=== PATIENT | male | born 1945 | race Two or more races ===

== ENCOUNTER 2017-02-07 08:15 | Inpatient (IN) | payer OTHER, MEDICARE ==
[2017-02-07] MEDS ORDERED: ASPIRIN 81 MG TABLET, CHEWABLE PO ONE (08:51)
[2017-02-07] MEDS ORDERED: DILTIAZEM HCL INJ 25 MG/5 ML VIAL IV ONE ×2 (08:51→08:53)
[2017-02-07] MEDS ORDERED: NORMAL SALINE 1000 ML 500 ML IV ONE (08:53)
--- NOTE | 2017-02-07 08:57 | ER Document Report ---
ED General - General Chief Complaint: Breathing Difficulty Stated Complaint: DIFFICULTY BREATHING Mode of Arrival: Ambulatory Information source: Patient Notes: This is a 71-year-old male with a history of hypertension and diabetes who presents with shortness of breath. He states that about 6 PM last night he was having a family discussion about a family problem and had some anxiety. At that time he noticed that he had some substernal chest discomfort and shortness of breath. He went to bed at about 7 PM but had difficulty sleeping secondary to his symptoms. This morning upon awakening he noticed that he was still short of breath and did not feel well. He denies any current chest pain. He has no prior cardiac history and no prior history of A. fib. TRAVEL OUTSIDE OF THE [place] IN LAST 30 DAYS: No - Related Data Allergies/Adverse Reactions: No Known Allergies Allergy (Verified 02/07/17 08:20) Past Medical History - General Information source: Patient - Social History Smoking Status: Former Smoker - quit 13 years ago Chew tobacco use (# tins/day): No Frequency of alcohol use: Occasional Drug Abuse: None Family History: Reviewed & Not Pertinent Patient has suicidal ideation: No Patient has homicidal ideation: No - Past Medical History Cardiac Medical History: Reports: Hx Hypertension Denies: Hx Coronary Artery Disease, Hx Heart Attack Pulmonary Medical History: Denies: Hx Asthma, Hx Bronchitis, Hx COPD, Hx Pneumonia Neurological Medical History: Denies: Hx Cerebrovascular Accident, Hx Seizures Endocrine Medical History: Reports: Hx Diabetes Mellitus Type 2 Renal/ Medical History: Denies: Hx Peritoneal Dialysis Musculoskeltal Medical History: Denies Hx Arthritis Other: Vasectomy, left neck lymph node - Immunizations Hx Diphtheria, Pertussis, Tetanus Vaccination: Yes Review of Systems - Review of Systems Notes: REVIEW OF SYSTEMS: CONSTITUTIONAL : Denies fever, chills, or sweats. Denies recent illness. EENT: Denies eye, ear, throat, or mouth pain or symptoms. Denies nasal or sinus congestion. CARDIOVASCULAR: As per history of present illness RESPIRATORY: Denies cough, cold, or chest congestion. Dyspnea as per history of present illness GASTROINTESTINAL: Denies abdominal pain. Denies nausea, vomiting, or diarrhea. GENITOURINARY: Denies difficulty urinating, painful urination, burning, frequency, or blood in urine. MUSCULOSKELETAL: Denies neck or back pain or joint pain or swelling. SKIN: Denies rash or skin lesions. HEMATOLOGIC : Denies easy bruising or bleeding. LYMPHATIC: Denies swollen, enlarged glands. NEUROLOGICAL: Denies altered mental status or loss of consciousness. Denies headache. PSYCHIATRIC: Denies anxiety or stress or depression. ALL OTHER SYSTEMS REVIEWED AND NEGATIVE. Physical Exam - Vital signs Vitals: Temp Pulse Resp BP Pulse Ox 97.6 F 56 L 20 150/59 H 96 02/07/17 08:21 02/07/17 08:21 02/07/17 08:21 02/07/17 08:21 02/07/17 08:21 - Notes Notes: PHYSICAL EXAMINATION: GENERAL: Well-appearing, well-nourished and in no acute distress. Very pleasant and conversant. No conversational dyspnea. HEAD: Atraumatic, normocephalic. EYES: Pupils equal round and reactive to light, extraocular movements intact, sclera anicteric, conjunctiva are normal. ENT: nares patent, oropharynx clear without exudates. Moist mucous membranes. NECK: Normal range of motion, supple without lymphadenopathy LUNGS: Breath sounds clear to auscultation bilaterally and equal. No wheezes rales or rhonchi. HEART: Irregularly irregular rhythm, tachycardic, no murmurs appreciated. ABDOMEN: Soft, nontender, normoactive bowel sounds. No guarding, no rebound. No masses appreciated. EXTREMITIES: Normal range of motion, no pitting or edema. NEUROLOGICAL: Cranial nerves grossly intact. Normal speech. No gross focal motor or sensory deficits appreciated. PSYCH: Normal mood, normal affect. SKIN: Warm, Dry, normal turgor, no rashes or lesions noted. Course - Re-evaluation Re-evalutation: 02/07/17 09:51 Patient rate controlled after 1 dose of IV diltiazem. His rate is noted to be in the 80s and 90s with continued A. fib. Chest x-ray demonstrates a possible retrocardiac infiltrate. IV antibiotics have been ordered and patient will be admitted to the IMCU. Discussed with for Dr. Bledsoe. - Vital Signs Vital signs: Temp Pulse Resp BP Pulse Ox 97.5 F 119 H 18 96/60 L 100 02/07/17 14:03 02/07/17 14:03 02/07/17 14:03 02/07/17 14:03 02/07/17 12:30 - Laboratory Result Diagrams: 02/07/17 09:00 02/07/17 09:00 Laboratory results interpreted by me: 02/07/17 02/07/17 09:00 09:00 RBC 5.60 H RDW 14.5 H Sodium 145.1 H Chloride 108 H Glucose 139 H - Diagnostic Test Radiology reviewed: Reports reviewed - Chest x-ray with retrocardiac infiltrate. - EKG Interpretation by Me Additional EKG results interpreted by me: 02/07/17 09:54 EKG at 827 demonstrates atrial fibrillation with a rate of 163. There is no ST segment elevation or depression. Critical Care Note - Critical Care Note Total time excluding time spent on procedures (mins): 35 - minutes of critical care time spent in direct contact evaluating and reevaluating the patient, treating symptoms, reviewing labs and studies and speaking with family and consultants excluding any procedures Discharge - Discharge Clinical Impression: New onset atrial fibrillation Pneumonia Qualifiers: Pneumonia type: due to unspecified organism Laterality: left Lung location: lower lobe of lung Qualified Code(s): J18.1 - Lobar pneumonia, unspecified organism Disposition: ADMITTED INPATIENT Admitting Provider: [facility] Admitted: [facility]
[2017-02-07 09:14] LABS: ABSOLUTE BASOPHILS # (AUTO) 0.1 10^3/uL (0.0-0.2); ABSOLUTE EOSINOPHILS # (AUTO) 0.3 10^3/uL (0.0-0.6); ABSOLUTE LYMPHOCYTES (AUTO) 1.3 10^3/uL (0.5-4.7); ABSOLUTE MONOCYTES (AUTO) 0.7 10^3/uL (0.1-1.4); ABSOLUTE NEUT (AUTO) 7.1 10^3/uL (1.7-8.2); BASOPHILS % (AUTO) 0.7 % (0-2); EOSINOPHILS % (AUTO) 2.7 % (0-6); HEMATOCRIT 46.7 % (37.9-51.0); HEMOGLOBIN 15.4 g/dL (13.5-17.0); HGB HCT DIFFERENCE -0.5; LYMPHOCYTES % (AUTO) 14.2 % (13-45); MEAN CORPUSCULAR HEMOGLOBIN 27.6 pg (27.0-33.4); MEAN CORPUSCULAR HGB CONC 33.1 g/dL (32.0-36.0); MEAN CORPUSCULAR VOLUME 83 fl (80-97); MONOCYTES % (AUTO) 7.4 % (3-13); RED CELL DISTRIBUTION WIDTH 14.5 % (11.5-14.0); WHITE BLOOD COUNT 9.5 10^3/uL (4.0-10.5)
[2017-02-07 09:32] LABS: ALANINE AMINOTRANSFERASE 32 U/L (21-72); ALBUMIN 4.2 g/dL (3.5-5.0); ALKALINE PHOSPHATASE 79 U/L (38-126); ANION GAP 15 (5-19); ASPARTATE AMINO TRANSFERASE 28 U/L (17-59); BILIRUBIN,TOTAL 0.5 mg/dL (0.2-1.3); BLOOD UREA NITROGEN 20 mg/dL (7-20); CALCIUM 9.5 mg/dL (8.4-10.2); CARBON DIOXIDE 22 mmol/L (22-30); CHLORIDE 108 mmol/L (98-107); CREATINE KINASE 73 U/L (55-170); CREATININE RESULT 0.85 mg/dL (0.52-1.25); GLUCOSE 139 mg/dL (75-110); POTASSIUM 4.4 mmol/L (3.6-5.0); SODIUM 145.1 mmol/L (137-145); TOTAL PROTEIN 7.3 g/dL (6.3-8.2)
[2017-02-07 09:44] LABS: CREATINE KINASE MB 0.77 ng/mL (<4.55)
[2017-02-07 09:47] LABS: TROPONIN I < 0.012 ng/mL
[2017-02-07 09:48] LABS: PARTIAL THROMBOPLASTIN TIME 27.7 SEC (23.5-35.8)
[2017-02-07] MEDS ORDERED: CEFTRIAXONE 1 GM/D5W RTU 50 ML IV ONE (09:48)
[2017-02-07] MEDS ORDERED: AZITHROMYCIN INJ 500 MG VIAL IV ONE (09:49)
[2017-02-07] MEDS ORDERED: LEVOFLOXACIN 750 MG/D5W RTU 750 MG/150 ML RTUPB IV SCH (12:00)
--- NOTE | 2017-02-07 12:11 | EKG REPORT ---
SEVERITY:- ABNORMAL ECG - ATRIAL FIBRILLATION, V-RATE 67-118 BORDERLINE LEFT AXIS DEVIATION LOW VOLTAGE IN FRONTAL LEADS : Confirmed by: Paula Barber MD 07-Feb-2017 12:10:16
--- NOTE | 2017-02-07 12:11 | EKG REPORT ---
SEVERITY:- ABNORMAL ECG - ATRIAL FIBRILLATION WITH RAPID V-RATE BORDERLINE LEFT AXIS DEVIATION LOW VOLTAGE IN FRONTAL LEADS : Confirmed by: Paula Barber MD 07-Feb-2017 12:10:26
[2017-02-07] MEDS ORDERED: ENOXAPARIN SODIUM INJ 40 MG/0.4 ML DISP.SYRIN SUBCUT ONE (13:00)
[2017-02-07 13:37] LABS: PARTIAL THROMBOPLASTIN TIME 29.4 SEC (23.5-35.8); PROTHROMBIN TIME 12.4 SEC (11.4-15.4)
[2017-02-07 13:47] LABS: LIPASE 357.1 U/L (23-300); PHOSPHORUS 3.7 mg/dL (2.5-4.5)
[2017-02-07 14:18] LABS: CREATINE KINASE MB 0.68 ng/mL (<4.55)
[2017-02-07 14:25] LABS: TROPONIN I < 0.012 ng/mL
[2017-02-07] MEDS ORDERED: AMIODARONE HCL 150 MG in DEXTROSE 5%-WATER 100 ML IV ONE (15:00)
--- NOTE | 2017-02-07 15:34 | PDOC H&P ---
History of Present Illness Admission Date/PCP: 02/07/17 11:51 DOROTHY AKINS History of Present Illness: JAYJAY HOWELL is a 71 year old male, patient of Dr. Akins, he came to the emergency room this morning because of shortness of breath and chest pain, he stated that yesterday he had argument with his spouse and he felt anxious last night and this morning he noticed increased shortness of breath and substernal chest pain ,so he came to the emergency room for evaluation of his symptoms. In the emergency room he was evaluated he was found to be in atrial fibrillation with rapid ventricular response the heart rate was 163, he does not have a history of atrial fibrillation. In The emergency room he was given a dose of Cardizem and subsequently the blood pressure was low and also control the ventricular rate .when he arrived in the emergency room the blood pressure recorded was 150/59.The initial chest x-ray that was done in the emergency room showed patchy densities in the left retrocardiac area which could represent infiltrate or atelectasis because of these findings on chest x-ray I requested for CT chest without contrast because patient has no symptoms of pneumonia. The CT scan of the chest without contrast showed no masses no infiltrate no pneumothorax no pleural effusions, there are ill-defined groundglass densities in the lung bases which may represent atelectasis or developing infiltrates. There was also incidental finding of a large cyst in the right lobe of the thyroid gland that measures 1.8 x 2.9 cm in diameter. When patient arrived on the floor he was in atrial fibrillation with rapid irregular response but the blood pressure was on the low side 90 systolic. Past Medical History Cardiac Medical History: Reports: Hypertension Endocrine Medical History: Reports: Diabetes Mellitus Type 2 Social History Smoking Status: Former Smoker Number of Years Smokin Frequency of Alcohol Use: None Hx Recreational Drug Use: No Drugs: None Hx Prescription Drug Abuse: No - Advance Directive Resuscitation Status: Full Code Family History Parental Family History Reviewed: Yes Children Family History Reviewed: Yes Sibling(s) Family History Reviewed.: Yes Medication/Allergy Home Medications: Atorvastatin Calcium [Lipitor] 20 mg PO DAILY 12/28/14 Doxazosin Mesylate [Cardura] 1 mg PO DAILY 12/28/14 Glipizide/Metformin HCl [Glipizide-Metformin 5-500 Mg] 1 each PO BID 12/28/14 Levocetirizine Dihydrochloride [Xyzal 5 mg Tablet] 5 mg PO QHS 12/28/14 Linagliptin [Tradjenta] 5 mg PO DAILY 12/28/14 Lisinopril 5 mg PO DAILY 12/28/14 Sildenafil Citrate [Viagra] 100 mg PO PRN PRN 12/28/14 Allergies/Adverse Reactions: No Known Allergies Allergy (Verified 02/07/17 08:20) Review of Systems Constitutional: ABSENT: chills, fever(s), headache(s), weight gain, weight loss Eyes: ABSENT: visual disturbances Ears: ABSENT: hearing changes Cardiovascular: PRESENT: chest pain, dyspnea on exertion Respiratory: ABSENT: cough, hemoptysis Gastrointestinal: ABSENT: abdominal pain, constipation, diarrhea, hematemesis, hematochezia, nausea, vomiting Genitourinary: ABSENT: dysuria, hematuria Musculoskeletal: ABSENT: joint swelling Integumentary: ABSENT: rash, wounds Neurological: ABSENT: abnormal gait, abnormal speech, confusion, dizziness, focal weakness, syncope Psychiatric: ABSENT: anxiety, depression, homidical ideation, suicidal ideation Endocrine: ABSENT: cold intolerance, heat intolerance, menstrual abnormalities, polydipsia, polyuria Hematologic/Lymphatic: ABSENT: easy bleeding, easy bruising, lymphadenopathy Physical Exam Vital Signs: Temp Pulse Resp BP Pulse Ox 97.5 F 119 H 18 96/60 L 100 02/07/17 14:03 02/07/17 14:03 02/07/17 14:03 02/07/17 14:03 02/07/17 12:30 Intake & Output 02/06/17 02/07/17 02/08/17 06:59 06:59 06:59 Weight 97.692 kg General appearance: PRESENT: no acute distress, well-developed, well-nourished Head exam: PRESENT: atraumatic, normocephalic Eye exam: PRESENT: conjunctiva pink, EOMI, PERRLA Ear exam: PRESENT: normal external ear exam Mouth exam: PRESENT: moist, tongue midline Neck exam: PRESENT: full ROM Respiratory exam: PRESENT: clear to auscultation freda Cardiovascular exam: PRESENT: RRR, +S1, +S2, tachycardia Pulses: PRESENT: normal dorsalis pedis pul, +2 pedal pulses bilateral Vascular exam: PRESENT: normal capillary refill GI/Abdominal exam: PRESENT: normal bowel sounds, soft Rectal exam: PRESENT: deferred Neurological exam: PRESENT: alert, awake, oriented to person, oriented to place , oriented to time, oriented to situation, CN II-XII grossly intact Psychiatric exam: PRESENT: appropriate affect, normal mood Skin exam: PRESENT: dry, intact, warm Results Laboratory Results: 02/07/17 02/07/17 02/07/17 12:49 12:49 12:49 Phosphorus 3.7 Ammonia < 8.7 L Amylase 90 Lipase 357.1 H TSH 0.84 02/07/17 02/07/17 02/07/17 12:49 12:49 12:49 Creatine Kinase 58 CK-MB (CK-2) 0.68 Troponin I < 0.012 Cancelled NT-Pro-B Natriuret Pep 1970 H Impressions: Chest CT 02/07/17 00:00 IMPRESSION: Ill-defined ground-glass densities in the lung bases which could represent atelectatic changes or developing infiltrates. No pleural effusions are identified. Other findings as noted above Chest X-Ray 02/07/17 08:22 IMPRESSION: Left retrocardiac densities which could represent atelectatic changes or minimal infiltrate. Other findings as noted above Assessment & Plan - Diagnosis (1) Atrial fibrillation with rapid ventricular response Is this a current diagnosis for this admission?: YesPlan: He has no onset atrial fibrillation with rapid ventricular response, patient to be treated with amiodarone infusion because blood pressure is low he cannot tolerate Cardizem infusion, he may need chronic anticoagulation because his chads S2 score is relatively high, he has a history of hypertension diabetes mellitus. 2D echo will be ordered to assess left atrial size and LV function (2) Type 2 diabetes mellitus Qualifiers: Diabetes mellitus complication status: without complication Diabetes mellitus care home insulin use: without terminal operations manager use Qualified Code(s): E11.9 - Type 2 diabetes mellitus without complications Is this a current diagnosis for this admission?: Yes (3) Hypertension Qualifiers: Hypertension type: essential hypertension Qualified Code(s): I10 - Essential (primary) hypertension Is this a current diagnosis for this admission?: Yes
[2017-02-07] MEDS: DEXTROSE 5%-WATER 500 ML with AMIODARONE HCL 900 MG IV PRN ×2 (15:51)
[2017-02-07 17:29] LABS: URINE BARBITURATES SCREEN NEGATIVE; URINE METHADONE SCREEN NEGATIVE; URINE OPIATES LOW NEGATIVE; URINE PHENCYCLIDINE SCREEN NEGATIVE
[2017-02-08 06:11] LABS: ALANINE AMINOTRANSFERASE 33 U/L (21-72); ALBUMIN 3.6 g/dL (3.5-5.0); ALKALINE PHOSPHATASE 64 U/L (38-126); ANION GAP 11 (5-19); ASPARTATE AMINO TRANSFERASE 20 U/L (17-59); BILIRUBIN,TOTAL 0.6 mg/dL (0.2-1.3); BLOOD UREA NITROGEN 19 mg/dL (7-20); CALCIUM 9.2 mg/dL (8.4-10.2); CARBON DIOXIDE 24 mmol/L (22-30); CHLORIDE 105 mmol/L (98-107); CHOLESTEROL 132.21 mg/dL (0-200); CREATININE RESULT 0.82 mg/dL (0.52-1.25); Direct HDL 32 mg/dL (>40); GLUCOSE 135 mg/dL (75-110); POTASSIUM 4.5 mmol/L (3.6-5.0); SODIUM 139.8 mmol/L (137-145); TOTAL PROTEIN 6.3 g/dL (6.3-8.2); TRIGLYCERIDES 108 mg/dL (<150)
[2017-02-08 06:14] LABS: ABSOLUTE BASOPHILS # (AUTO) 0.1 10^3/uL (0.0-0.2); ABSOLUTE EOSINOPHILS # (AUTO) 0.3 10^3/uL (0.0-0.6); ABSOLUTE LYMPHOCYTES (AUTO) 1.8 10^3/uL (0.5-4.7); ABSOLUTE MONOCYTES (AUTO) 0.9 10^3/uL (0.1-1.4); ABSOLUTE NEUT (AUTO) 7.1 10^3/uL (1.7-8.2); BASOPHILS % (AUTO) 0.8 % (0-2); EOSINOPHILS % (AUTO) 3.4 % (0-6); HEMATOCRIT 44.4 % (37.9-51.0); HEMOGLOBIN 14.9 g/dL (13.5-17.0); HGB HCT DIFFERENCE 0.3; MEAN CORPUSCULAR HEMOGLOBIN 27.6 pg (27.0-33.4); MEAN CORPUSCULAR HGB CONC 33.5 g/dL (32.0-36.0); MEAN CORPUSCULAR VOLUME 82 fl (80-97); MONOCYTES % (AUTO) 8.5 % (3-13); RED BLOOD COUNT 5.39 10^6/uL (4.35-5.55); RED CELL DISTRIBUTION WIDTH 14.7 % (11.5-14.0); SEGMENTED NEUTROPHILS % (AUTO) 69.3 % (42-78); WHITE BLOOD COUNT 10.2 10^3/uL (4.0-10.5)
[2017-02-08 06:22] LABS: DIRECT LDL 77 mg/dL (<100)
[2017-02-08] MEDS: ENOXAPARIN SODIUM INJ 40 MG/0.4 ML DISP.SYRIN SUBCUT SCH (07:18)
[2017-02-08] MEDS: METFORMIN HCL 500 MG TABLET PO SCH ×2 (09:37→17:48)
[2017-02-08] MEDS: TAMSULOSIN HCL 0.4 MG CAP.SR.24H PO SCH (09:38)
[2017-02-08] MEDS: PIOGLITAZONE HCL 15 MG TABLET PO SCH (09:39)
[2017-02-08] MEDS: LISINOPRIL 10 MG TABLET PO SCH (09:39)
[2017-02-08] MEDS: ATORVASTATIN CALCIUM 20 MG TABLET PO SCH (09:39)
[2017-02-08] MEDS: DUTASTERIDE 0.5 MG CAPSULE PO SCH (09:39)
[2017-02-08] MEDS: ASPIRIN 81 MG TABLET, ENT COATED PO SCH (09:39)
[2017-02-08] MEDS: DEXTROSE 5%-WATER 500 ML with AMIODARONE HCL 900 MG IV PRN ×2 (09:40)
[2017-02-08] MEDS ORDERED: TAMSULOSIN HCL PO SCH (10:00)
[2017-02-08] MEDS ORDERED: EMPAGLIFLOZIN PO SCH (10:00)
[2017-02-08] MEDS ORDERED: DUTASTERIDE PO SCH (10:00)
[2017-02-08] MEDS ORDERED: LINAGLIPTIN PO SCH (10:00)
[2017-02-08] MEDS ORDERED: METOPROLOL TARTRATE 25 MG TABLET PO ONE (15:00)
--- NOTE | 2017-02-08 15:28 | XCELERA REPORT ---
[address] [address] Transthoracic Echocardiogram Report Name: JAYJAY HOWELL Age: 71 yrs Gender: Male : 1945 Patient Status: Inpatient Patient Location: [id number]\S\329\S\A Study Date: 02/08/2017 09:51 AM Height: 73 in Weight: 216 lb BSA: 2.2 m2 Procedure: A complete two-dimensional transthoracic echocardiogram was performed (2D, M-mode, spectral and color flow Doppler). The study was technically difficult with many images being suboptimal in quality. Reason For Study: new onset a-fib Ordering Physician: NICHOLAS LAZCANO Performed By: Karma Mitchell Interpretation Summary The left ventricular ejection fraction is normal. Doppler measurements suggest pseudonormalized left ventricular relaxation, which is associated with grade II/IV or mild to moderate diastolic dysfunction There is mild concentric left ventricular hypertrophy. The left ventricle is grossly normal size. Wall motion cannot be accurately commented on, but no definite regional wall motion abnormalities noted. The right ventricle is mildly dilated. The right ventricular systolic function is normal. The left atrium is moderately dilated. The right atrium is mildly dilated. There is a trace amount of mitral regurgitation There is no mitral valve stenosis. No aortic regurgitation is present. There is no aortic valve stenosis There is a trace or physiologic amount of tricuspid regurgitation Tricuspid regurgitation jet envelope not well defined to measure RV systolic pressure accurately. The aortic root is not well visualized but is probably normal size. The inferior vena cava was not well visualized There is no pericardial effusion. MMode/2D Measurements \T\ Calculations RVDd: 3.2 cm LVIDd: 4.2 cm FS: 32.5 % Ao root diam: 3.5 cm IVSd: 1.2 cm LVIDs: 2.9 cm EDV(Teich): 80.1 ml LVPWd: 1.2 cm ESV(Teich): 31.1 ml Ao root area: 9.8 cm2 EF(Teich): 61.2 % LA dimension: 4.5 cm LVOT diam: 2.1 cm LVOT area: 3.6 cm2 Doppler Measurements \T\ Calculations MV E max alicia: MV P1/2t max alicia: Ao V2 max: LV V1 max P.1 cm/sec 109.1 cm/sec 120.2 cm/sec 3.8 mmHg MV P1/2t: 53.8 msec Ao max PG: LV V1 max: MVA(P1/2t): 4.1 cm2 5.8 mmHg 97.9 cm/sec MV dec slope: FERMIN(V,D): 2.9 cm2 593.6 cm/sec2 PA V2 max: TR max alicia: 68.3 cm/sec 169.4 cm/sec PA max P.9 mmHgTR max P.5 mmHg Left Ventricle The left ventricle is grossly normal size. There is mild concentric left ventricular hypertrophy. The left ventricular ejection fraction is normal. Doppler measurements suggest pseudonormalized left ventricular relaxation, which is associated with grade II/IV or mild to moderate diastolic dysfunction. Wall motion cannot be accurately commented on, but no definite regional wall motion abnormalities noted. Right Ventricle The right ventricle is mildly dilated. There is normal right ventricular wall thickness. The right ventricular systolic function is normal. Atria The right atrium is mildly dilated. The left atrium is moderately dilated. Interarterial septum not well visualized and not well dopplered. Cannot comment on ASD/PFO presence. Mitral Valve The mitral valve leaflets are sclerotic, but show no functional abnormalities. There is no mitral valve stenosis. There is a trace amount of mitral regurgitation. Aortic Valve The aortic valve is grossly normal. There is no aortic valve stenosis. No aortic regurgitation is present. Tricuspid Valve The tricuspid valve is not well visualized, but is grossly normal. There is no tricuspid stenosis. There is a trace or physiologic amount of tricuspid regurgitation. Tricuspid regurgitation jet envelope not well defined to measure RV systolic pressure accurately. Pulmonic Valve The pulmonic valve is not well visualized. Great Vessels The aortic root is not well visualized but is probably normal size. The inferior vena cava was not well visualized. Effusions There is no pericardial effusion. : NICHOLAS LAZCANO > Angela Laurent
[2017-02-08] MEDS: METOPROLOL TARTRATE 25 MG TABLET PO SCH (21:07)
--- NOTE | 2017-02-08 23:20 | PDOC PROGRESS REPORT ---
Subjective Progress Note for:: 02/08/17 Subjective:: No chest pain or difficulty with breathing. Patient did convert to sinus rhythm earlier today. He did suggest alcohol consumption at home during my bedside consultation today. He denied prior history of atrial fibrillation. No fever or chills. Physical Exam Vital Signs: Temp Pulse Resp BP Pulse Ox 98.7 F 73 16 119/59 L 93 02/08/17 20:28 02/08/17 19:00 02/08/17 20:28 02/08/17 19:32 02/08/17 20:28 Intake & Output 02/07/17 02/08/17 02/09/17 06:59 06:59 06:59 Intake Total 1011 1024 Balance 1011 1024 Weight 98.5 kg General appearance: PRESENT: no acute distress, cooperative Head exam: PRESENT: atraumatic, normocephalic Eye exam: PRESENT: conjunctiva pink, EOMI, PERRLA. ABSENT: scleral icterus Mouth exam: PRESENT: moist Respiratory exam: PRESENT: clear to auscultation freda Cardiovascular exam: PRESENT: RRR. ABSENT: diastolic murmur, rubs, systolic murmur GI/Abdominal exam: PRESENT: normal bowel sounds, soft. ABSENT: distended, guarding, mass, organolmegaly, rebound, tenderness Extremities exam: PRESENT: full ROM Musculoskeletal exam: PRESENT: ambulatory, deformity Neurological exam: PRESENT: alert, awake, oriented to person, oriented to place , oriented to time, oriented to situation, CN II-XII grossly intact. ABSENT: motor sensory deficit Psychiatric exam: PRESENT: appropriate affect, normal mood. ABSENT: homicidal ideation, suicidal ideation Skin exam: PRESENT: dry, intact, warm. ABSENT: cyanosis, rash Results Laboratory Results: 02/08/17 05:46 02/08/17 05:46 02/08/17 02/08/17 05:46 05:46 WBC 10.2 RBC 5.39 Hgb 14.9 Hct 44.4 MCV 82 MCH 27.6 MCHC 33.5 RDW 14.7 H Plt Count 247 Seg Neutrophils % 69.3 Lymphocytes % 18.0 Monocytes % 8.5 Eosinophils % 3.4 Basophils % 0.8 Absolute Neutrophils 7.1 Absolute Lymphocytes 1.8 Absolute Monocytes 0.9 Absolute Eosinophils 0.3 Absolute Basophils 0.1 Sodium 139.8 Potassium 4.5 Chloride 105 Carbon Dioxide 24 Anion Gap 11 BUN 19 Creatinine 0.82 Est GFR ( Amer) > 60 Est GFR (Non-Af Amer) > 60 Glucose 135 H Calcium 9.2 Total Bilirubin 0.6 AST 20 ALT 33 Alkaline Phosphatase 64 Total Protein 6.3 Albumin 3.6 Triglycerides 108 Cholesterol 132.21 LDL Cholesterol Direct 77 VLDL Cholesterol 22.0 HDL Cholesterol 32 L 02/07/17 02/07/17 02/07/17 12:49 12:49 12:49 Creatine Kinase 58 CK-MB (CK-2) 0.68 Troponin I < 0.012 Cancelled NT-Pro-B Natriuret Pep 1970 H 02/07/17 02/08/17 18:25 00:30 Creatine Kinase CK-MB (CK-2) Troponin I < 0.012 < 0.012 NT-Pro-B Natriuret Pep Impressions: Chest CT 02/07/17 00:00 IMPRESSION: Ill-defined ground-glass densities in the lung bases which could represent atelectatic changes or developing infiltrates. No pleural effusions are identified. Other findings as noted above Chest X-Ray 02/07/17 08:22 IMPRESSION: Left retrocardiac densities which could represent atelectatic changes or minimal infiltrate. Other findings as noted above Assessment & Plan - Diagnosis (1) Atrial fibrillation with rapid ventricular response Is this a current diagnosis for this admission?: YesPlan: See attending physician orders. (2) Hypertension Qualifiers: Hypertension type: essential hypertension Qualified Code(s): I10 - Essential (primary) hypertension Is this a current diagnosis for this admission?: YesPlan: See attending physician orders. (3) Pneumonia Qualifiers: Pneumonia type: due to unspecified organism Laterality: left Lung location: lower lobe of lung Qualified Code(s): J18.1 - Lobar pneumonia, unspecified organism Is this a current diagnosis for this admission?: YesPlan: See attending physician orders. (4) Type 2 diabetes mellitus Qualifiers: Diabetes mellitus complication status: with unspecified complications Diabetes mellitus snf insulin use: without snf use Qualified Code(s): E11.8 - Type 2 diabetes mellitus with unspecified complications Is this a current diagnosis for this admission?: YesPlan: See attending physician orders. 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
[2017-02-09] MEDS ORDERED: LEVOFLOXACIN 500 MG/D5W RTU 500 MG/100 ML RTUPB IV ONE (01:00)
[2017-02-09 05:48] LABS: ABSOLUTE BASOPHILS # (AUTO) 0.1 10^3/uL (0.0-0.2); ABSOLUTE EOSINOPHILS # (AUTO) 0.3 10^3/uL (0.0-0.6); ABSOLUTE LYMPHOCYTES (AUTO) 1.7 10^3/uL (0.5-4.7); ABSOLUTE MONOCYTES (AUTO) 0.8 10^3/uL (0.1-1.4); ABSOLUTE NEUT (AUTO) 5.4 10^3/uL (1.7-8.2); BASOPHILS % (AUTO) 1.1 % (0-2); EOSINOPHILS % (AUTO) 3.6 % (0-6); HEMATOCRIT 42.8 % (37.9-51.0); HEMOGLOBIN 14.4 g/dL (13.5-17.0); HGB HCT DIFFERENCE 0.4; MEAN CORPUSCULAR HEMOGLOBIN 27.8 pg (27.0-33.4); MEAN CORPUSCULAR HGB CONC 33.7 g/dL (32.0-36.0); MEAN CORPUSCULAR VOLUME 83 fl (80-97); MONOCYTES % (AUTO) 9.2 % (3-13); RED BLOOD COUNT 5.19 10^6/uL (4.35-5.55); RED CELL DISTRIBUTION WIDTH 14.3 % (11.5-14.0); SEGMENTED NEUTROPHILS % (AUTO) 65.1 % (42-78); WHITE BLOOD COUNT 8.3 10^3/uL (4.0-10.5)
[2017-02-09 06:10] LABS: ALANINE AMINOTRANSFERASE 30 U/L (21-72); ALBUMIN 3.5 g/dL (3.5-5.0); ALKALINE PHOSPHATASE 71 U/L (38-126); ANION GAP 12 (5-19); ASPARTATE AMINO TRANSFERASE 21 U/L (17-59); BILIRUBIN,DIRECT 0.1 mg/dL (0.0-0.4); BILIRUBIN,TOTAL 0.6 mg/dL (0.2-1.3); BLOOD UREA NITROGEN 20 mg/dL (7-20); CALCIUM 9.4 mg/dL (8.4-10.2); CARBON DIOXIDE 24 mmol/L (22-30); CHLORIDE 103 mmol/L (98-107); CREATININE RESULT 0.87 mg/dL (0.52-1.25); GLUCOSE 127 mg/dL (75-110); POTASSIUM 4.8 mmol/L (3.6-5.0); SODIUM 139.1 mmol/L (137-145); TOTAL PROTEIN 6.3 g/dL (6.3-8.2)
[2017-02-09] MEDS: METOPROLOL TARTRATE 25 MG TABLET PO SCH ×2 (10:37→21:12)
[2017-02-09] MEDS: LISINOPRIL 10 MG TABLET PO SCH (10:37)
[2017-02-09] MEDS: METFORMIN HCL 500 MG TABLET PO SCH ×2 (10:38→17:18)
[2017-02-09] MEDS: ENOXAPARIN SODIUM INJ 40 MG/0.4 ML DISP.SYRIN SUBCUT SCH (10:38)
[2017-02-09] MEDS: ATORVASTATIN CALCIUM 20 MG TABLET PO SCH (10:38)
[2017-02-09] MEDS: ASPIRIN 81 MG TABLET, ENT COATED PO SCH (10:38)
[2017-02-09] MEDS: PIOGLITAZONE HCL 15 MG TABLET PO SCH (10:39)
[2017-02-09] MEDS: TAMSULOSIN HCL 0.4 MG CAP.SR.24H PO SCH (10:44)
[2017-02-09] MEDS: DUTASTERIDE 0.5 MG CAPSULE PO SCH (10:44)
[2017-02-09] MEDS ORDERED: AMINOPHYLLINE INJ/PF 250 MG/10 ML SDV IV ONE (14:40)
[2017-02-09] MEDS ORDERED: REGADENOSON INJ 0.4 MG/5 ML DISP.SYRIN IV ONE (14:40)
--- NOTE | 2017-02-09 17:54 | DRAGON STRESS TEST REPORT ---
INTRAVENOUS LEXISCAN CARDIOLITE STRESS TEST USING SINGLE PHOTON EMMISION COMPUTERIZED TOMOGRAPHIC. DATE OF PROCEDURE: February 09, 2017 INDICATION : Chest pain and shortness of breath CARDIAC RISK FACTORS: Type II diabetes, hypertension, dyslipidemia RESTING EKG: Sinus rhythm, no Baseline ST segment changes noted STRESS EKG: No significant changes noted with LexiScan bolus REASON FOR TERMINATION: Protocol. PROCEDURE REPORT: Baseline heart rate 75 beats per minute with blood pressure of 136/75. Patient had no significant complaints. Heart rate at 2 minutes post bolus 102 with a blood pressure of 158/72. 3 minutes post bolus heart rate 91 with blood pressure of 155/72. No significant EKG changes were noted. Patient had no significant complaints during the procedure or postprocedure. CONCLUSIONS: Normal EKG and hemodynamic response to IV LexiScan. NUCLEAR DATA: At rest the patient was given 14.64 millicuries of technetium 99 sestamibi injected intravenously. As per protocol rest gated SPECT images were obtained. Subsequently the patient was given intravenous LexiScan at a dose of 0.4 mg in 5 mL intravenously, followed by flush with normal saline. Subsequently the stress dose of 45.1 millicuries of technetium 99 sestamibi was injected intravenously. As per protocol stress gated images were obtained. NUCLEAR INTERPRETATION: Both raw and processed data were used for interpretation. Visual, qualitative, computer-generated quantitative data was used. There was good myocardial uptake of technetium compound. Motion artifact and soft tissue attenuations were noted. Increased visceral uptake was noted. No definitive areas of transient perfusion defect noted. No definitive areas of fixed perfusion defect or scars noted. EKG gated imaging showed LV EF at 64 %, rest and stress gated EF similar visually. T. I D. ratio was 1.13. Lung heart ratio noted to be within normal limits 0.24. No significant extracardiac and abnormal radiotracer activities were noted. RV free wall uptake was noted to be WNL. IMPRESSION: Also refer to comments under nuclear interpretation. Also test results needs to be interpreted in the context of pretest probability. 1. There is no definitive scintigraphic evidence of LexiScan induced myocardial ischemia. 2. There is no definitive scintigraphic evidence of myocardial infarction/scar. 3. EKG gated imaging shows left ejection fraction of approximately 64 %. 4. Clinical correlation requested as occasionally single vessel disease or balanced ischemia could be missed. In approximately 10% of the cases Lexiscan may not cause adequate vasodilatory stress. RECOMMENDATIONS: Aggressive risk factor modification, medical therapy. Clinical correlation with echocardiogram derived ejection fraction. Inability to exercise by itself can lead to increased cardiovascular event risks. Consider cardiology consultation and or follow-up if clinically indicated. I AM AVAILABLE FOR CARDIOLOGY CONSULTATION AND FOLLOWUP IF REQUESTED BY PMD Angela Laurent M.D., [facility] [employer] Strategist stave cutter, Board certified in cardiovascular diseases, Nuclear cardiology, Echocardiography Cardiac CT and cardiac MRI Ph. [phone] [facility]
--- NOTE | 2017-02-09 19:15 | PDOC PROGRESS REPORT ---
Subjective Progress Note for:: 02/09/17 Subjective:: No chest pain, palpitation, or difficulty with breathing. s/p Cardiolite stress test earlier today. Patient did convert to sinus rhythm earlier today. He did suggest alcohol consumption at home during my bedside consultation today. He denied prior history of atrial fibrillation. No fever or chills. Physical Exam Vital Signs: Temp Pulse Resp BP Pulse Ox 98.0 F 79 20 112/75 100 02/09/17 15:38 02/09/17 15:38 02/09/17 15:38 02/09/17 15:38 02/09/17 15:38 Intake & Output 02/08/17 02/09/17 02/10/17 06:59 06:59 06:59 Intake Total 1011 1352 845 Balance 1011 1352 845 Weight 98.5 kg 98.4 kg Physical Exam: General appearance: PRESENT: no acute distress, cooperative Head exam: PRESENT: atraumatic, normocephalic Eye exam: PRESENT: conjunctiva pink, EOMI, PERRLA. ABSENT: scleral icterus Mouth exam: PRESENT: moist Respiratory exam: PRESENT: clear to auscultation freda Cardiovascular exam: PRESENT: RRR. ABSENT: diastolic murmur, rubs, systolic murmur GI/Abdominal exam: PRESENT: normal bowel sounds, soft. ABSENT: distended, guarding, mass, organomegaly, rebound, tenderness Extremities exam: PRESENT: full ROM Musculoskeletal exam: PRESENT: ambulatory, deformity Neurological exam: PRESENT: alert, awake, oriented to person, oriented to place , oriented to time, oriented to situation, CN II-XII grossly intact. ABSENT: motor sensory deficit Psychiatric exam: PRESENT: appropriate affect, normal mood. ABSENT: homicidal ideation, suicidal ideation Skin exam: PRESENT: dry, intact, warm. ABSENT: cyanosis, rash Results Laboratory Results: 02/09/17 05:21 02/09/17 05:21 02/09/17 02/09/17 05:21 05:21 WBC 8.3 RBC 5.19 Hgb 14.4 Hct 42.8 MCV 83 MCH 27.8 MCHC 33.7 RDW 14.3 H Plt Count 224 Seg Neutrophils % 65.1 Lymphocytes % 21.0 Monocytes % 9.2 Eosinophils % 3.6 Basophils % 1.1 Absolute Neutrophils 5.4 Absolute Lymphocytes 1.7 Absolute Monocytes 0.8 Absolute Eosinophils 0.3 Absolute Basophils 0.1 Sodium 139.1 Potassium 4.8 Chloride 103 Carbon Dioxide 24 Anion Gap 12 BUN 20 Creatinine 0.87 Est GFR ( Amer) > 60 Est GFR (Non-Af Amer) > 60 Glucose 127 H Calcium 9.4 Total Bilirubin 0.6 AST 21 ALT 30 Alkaline Phosphatase 71 Total Protein 6.3 Albumin 3.5 02/07/17 02/07/17 02/07/17 12:49 12:49 12:49 Creatine Kinase 58 CK-MB (CK-2) 0.68 Troponin I < 0.012 Cancelled NT-Pro-B Natriuret Pep 1970 H 02/07/17 02/08/17 18:25 00:30 Creatine Kinase CK-MB (CK-2) Troponin I < 0.012 < 0.012 NT-Pro-B Natriuret Pep Impressions: Chest CT 02/07/17 00:00 IMPRESSION: Ill-defined ground-glass densities in the lung bases which could represent atelectatic changes or developing infiltrates. No pleural effusions are identified. Other findings as noted above Chest X-Ray 02/07/17 08:22 IMPRESSION: Left retrocardiac densities which could represent atelectatic changes or minimal infiltrate. Other findings as noted above Assessment & Plan - Diagnosis (1) Atrial fibrillation with rapid ventricular response Is this a current diagnosis for this admission?: YesPlan: See attending physician orders. I reviewed and discussed stress test findings with patient during this bedside consultation visit. I will consider long acting beta dioni upon discharge. (2) Hypertension Qualifiers: Hypertension type: essential hypertension Qualified Code(s): I10 - Essential (primary) hypertension Is this a current diagnosis for this admission?: YesPlan: See attending physician orders. (3) Pneumonia Qualifiers: Pneumonia type: due to unspecified organism Laterality: left Lung location: lower lobe of lung Qualified Code(s): J18.1 - Lobar pneumonia, unspecified organism Is this a current diagnosis for this admission?: YesPlan: See attending physician orders. I will discontinue IV Levofloxacin and start on oral dosing with intent to discharge home in the next 24 hours. (4) Type 2 diabetes mellitus Qualifiers: Diabetes mellitus complication status: with unspecified complications Diabetes mellitus intermediate insulin use: without termite control servicer use Qualified Code(s): E11.8 - Type 2 diabetes mellitus with unspecified complications; Z79.4 - FDC (current) use of insulin Is this a current diagnosis for this admission?: YesPlan: See attending physician orders. Maintain on current medication management. 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
[2017-02-09] MEDS ORDERED: LEVOFLOXACIN 500 MG/D5W RTU 500 MG/100 ML RTUPB IV SCH (22:00)
[2017-02-10 06:54] LABS: ABSOLUTE BASOPHILS # (AUTO) 0.1 10^3/uL (0.0-0.2); ABSOLUTE EOSINOPHILS # (AUTO) 0.3 10^3/uL (0.0-0.6); ABSOLUTE LYMPHOCYTES (AUTO) 1.6 10^3/uL (0.5-4.7); ABSOLUTE MONOCYTES (AUTO) 0.8 10^3/uL (0.1-1.4); ABSOLUTE NEUT (AUTO) 4.8 10^3/uL (1.7-8.2); BASOPHILS % (AUTO) 0.7 % (0-2); EOSINOPHILS % (AUTO) 3.9 % (0-6); LYMPHOCYTES % (AUTO) 21.5 % (13-45); MEAN CORPUSCULAR HEMOGLOBIN 27.5 pg (27.0-33.4); MEAN CORPUSCULAR HGB CONC 33.5 g/dL (32.0-36.0); MEAN CORPUSCULAR VOLUME 82 fl (80-97); MONOCYTES % (AUTO) 10.1 % (3-13); RED BLOOD COUNT 5.11 10^6/uL (4.35-5.55); RED CELL DISTRIBUTION WIDTH 14.1 % (11.5-14.0); SEGMENTED NEUTROPHILS % (AUTO) 63.8 % (42-78); WHITE BLOOD COUNT 7.6 10^3/uL (4.0-10.5)
[2017-02-10 07:06] LABS: ALANINE AMINOTRANSFERASE 34 U/L (21-72); ALBUMIN 3.5 g/dL (3.5-5.0); ALKALINE PHOSPHATASE 66 U/L (38-126); ANION GAP 10 (5-19); ASPARTATE AMINO TRANSFERASE 20 U/L (17-59); BILIRUBIN,DIRECT 0.2 mg/dL (0.0-0.4); BILIRUBIN,TOTAL 0.6 mg/dL (0.2-1.3); BLOOD UREA NITROGEN 21 mg/dL (7-20); CALCIUM 9.4 mg/dL (8.4-10.2); CARBON DIOXIDE 23 mmol/L (22-30); CHLORIDE 104 mmol/L (98-107); GLUCOSE 107 mg/dL (75-110); POTASSIUM 4.6 mmol/L (3.6-5.0); SODIUM 137.3 mmol/L (137-145); TOTAL PROTEIN 6.1 g/dL (6.3-8.2)
[2017-02-10] MEDS: ENOXAPARIN SODIUM INJ 40 MG/0.4 ML DISP.SYRIN SUBCUT SCH (08:21)
--- NOTE | 2017-02-10 08:32 | PDOC DISCHARGE SUMMARY ---
General - Admit/Disc Date/PCP Admission Date/Primary Care Provider: 02/07/17 11:51 DOROTHY TASHI Discharge Date: 02/10/17 - Discharge Diagnosis (1) Atrial fibrillation with rapid ventricular response Is this a current diagnosis for this admission?: Yes (2) Hypertension Is this a current diagnosis for this admission?: Yes (3) Pneumonia Is this a current diagnosis for this admission?: Yes (4) Type 2 diabetes mellitus Is this a current diagnosis for this admission?: Yes - Additional Information Resuscitation Status: Full Code Discharge Activity: Activity As Tolerated Home Medications: Aspirin [Ecotrin] 81 mg PO DAILY 02/07/17 Atorvastatin Calcium [Lipitor 20 mg Tablet] 20 mg PO DAILY 02/07/17 Dutasteride/Tamsulosin HCl [Ashley 0.5-0.4 mg Capsule] 1 cap PO DAILY 02/07/17 Empagliflozin/Linagliptin [Glyxambi 25 mg-5 mg Tablet] 1 tab PO DAILY 02/07/17 Lisinopril [Prinivil 10 mg Tablet] 10 mg PO DAILY 02/07/17 Metformin HCl [Glucophage] 1,000 mg PO BID 02/07/17 Pioglitazone HCl [Actos 15 mg Tablet] 15 mg PO DAILY 02/07/17 Triamcinolone Acetonide [Aristocort 0.025% Cream] 1 applic TP BIDP PRN 02/07/17 Levofloxacin 500 mg PO DAILY #10 tablet 02/10/17 Metoprolol Tartrate [Lopressor 25 mg Tablet] 12.5 mg PO Q12 #60 tablet 02/10/17 History of Present Illness Patient complains of: Shortness of breath and chest pain History of Present Illness: JAYJAY HOWELL is a 71 year old male, patient of Dr. Bledsoe, he came to the emergency room this morning because of shortness of breath and chest pain, he stated that yesterday he had argument with his spouse and he felt anxious last night and this morning he noticed increased shortness of breath and substernal chest pain ,so he came to the emergency room for evaluation of his symptoms. In the emergency room he was evaluated he was found to be in atrial fibrillation with rapid ventricular response the heart rate was 163, he does not have a history of atrial fibrillation. In The emergency room he was given a dose of Cardizem and subsequently the blood pressure was low and also control the ventricular rate .when he arrived in the emergency room the blood pressure recorded was 150/59.The initial chest x-ray that was done in the emergency room showed patchy densities in the left retrocardiac area which could represent infiltrate or atelectasis because of these findings on chest x-ray I requested for CT chest without contrast because patient has no symptoms of pneumonia. The CT scan of the chest without contrast showed no masses no infiltrate no pneumothorax no pleural effusions, there are ill-defined groundglass densities in the lung bases which may represent atelectasis or developing infiltrates. There was also incidental finding of a large cyst in the right lobe of the thyroid gland that measures 1.8 x 2.9 cm in diameter. When patient arrived on the floor he was in atrial fibrillation with rapid irregular response but the blood pressure was on the low side 90 systolic. Hospital Course Hospital Course: Patient was admitted for A.Fib with rapid ventricular rate and pneumonia. He did respond to Amiodarone infusion therapy for his arrhythmia management. He was treated with IV Levaquin for possible bibasilar pneumonia. He did ruled out for ACS and cardiac evaluation with echocardiogram as well as cardiolite stress test were unrevealing for any significant cardiac disease. His CT chest revealed large right thyroid lobe cyst. His has been started on Metoprolol tartrate 12.5 mg p.o bid and he will continue on all other preadmission medication. He will be discharge home on Levaquin 500mg p.o daily x 10 days. He will need 24 hours holter monitor in real daily activity level for further evaluation of his A.Fib at presentation. He will follow up with me in the office as instructed upon discharge. Physical Exam Vital Signs: Temp Pulse Resp BP Pulse Ox 97.5 F 61 16 124/62 98 02/10/17 07:19 02/10/17 07:19 02/10/17 07:19 02/10/17 07:19 02/10/17 07:19 Intake & Output 02/09/17 02/10/17 02/11/17 06:59 06:59 06:59 Intake Total 1352 1249 Balance 1352 1249 Weight 98.4 kg 98.4 kg Physical Exam: General appearance: PRESENT: no acute distress, cooperative Head exam: PRESENT: atraumatic, normocephalic Eye exam: PRESENT: conjunctiva pink, EOMI, PERRLA. ABSENT: scleral icterus Mouth exam: PRESENT: moist Respiratory exam: PRESENT: clear to auscultation freda Cardiovascular exam: PRESENT: RRR. ABSENT: diastolic murmur, rubs, systolic murmur GI/Abdominal exam: PRESENT: normal bowel sounds, soft. ABSENT: distended, guarding, mass, organomegaly, rebound, tenderness Extremities exam: PRESENT: full ROM Musculoskeletal exam: PRESENT: ambulatory, deformity Neurological exam: PRESENT: alert, awake, oriented to person, oriented to place , oriented to time, oriented to situation, CN II-XII grossly intact. ABSENT: motor sensory deficit Psychiatric exam: PRESENT: appropriate affect, normal mood. ABSENT: homicidal ideation, suicidal ideation Skin exam: PRESENT: dry, intact, warm. ABSENT: cyanosis, rash Results Laboratory Results: 02/10/17 05:50 02/10/17 05:50 02/10/17 02/10/17 05:50 05:50 WBC 7.6 RBC 5.11 Hgb 14.0 Hct 42.0 MCV 82 MCH 27.5 MCHC 33.5 RDW 14.1 H Plt Count 243 Seg Neutrophils % 63.8 Lymphocytes % 21.5 Monocytes % 10.1 Eosinophils % 3.9 Basophils % 0.7 Absolute Neutrophils 4.8 Absolute Lymphocytes 1.6 Absolute Monocytes 0.8 Absolute Eosinophils 0.3 Absolute Basophils 0.1 Sodium 137.3 Potassium 4.6 Chloride 104 Carbon Dioxide 23 Anion Gap 10 BUN 21 H Creatinine 0.90 Est GFR ( Amer) > 60 Est GFR (Non-Af Amer) > 60 Glucose 107 Calcium 9.4 Total Bilirubin 0.6 AST 20 ALT 34 Alkaline Phosphatase 66 Total Protein 6.1 L Albumin 3.5 02/07/17 02/07/17 02/07/17 12:49 12:49 12:49 Creatine Kinase 58 CK-MB (CK-2) 0.68 Troponin I < 0.012 Cancelled NT-Pro-B Natriuret Pep 1970 H 02/07/17 02/08/17 18:25 00:30 Creatine Kinase CK-MB (CK-2) Troponin I < 0.012 < 0.012 NT-Pro-B Natriuret Pep Impressions: Chest CT 02/07/17 00:00 IMPRESSION: Ill-defined ground-glass densities in the lung bases which could represent atelectatic changes or developing infiltrates. No pleural effusions are identified. Other findings as noted above Chest X-Ray 02/07/17 08:22 IMPRESSION: Left retrocardiac densities which could represent atelectatic changes or minimal infiltrate. Other findings as noted above Qualifiers PATEINT BEING DISCHARGED WITH ANY OF THE FOLLOWING DIAGNOSIS?: No Plan Discharge Plan: D/C home today. Maintain on Levaquin 500 mg p.o daily x 10 days and Metoprolol Tartrate 12.5 mg po bid. Follow up in office as instructed upon discharge. Time Spent: Less than 30 Minutes
[2017-02-10 08:42] VITALS: BP 127/62
[2017-02-10] MEDS: DUTASTERIDE 0.5 MG CAPSULE PO SCH (09:52)
[2017-02-10] MEDS: METOPROLOL TARTRATE 25 MG TABLET PO SCH (09:52)
[2017-02-10] MEDS: TAMSULOSIN HCL 0.4 MG CAP.SR.24H PO SCH (09:52)
[2017-02-10] MEDS: LISINOPRIL 10 MG TABLET PO SCH (09:53)
[2017-02-10] MEDS: PIOGLITAZONE HCL 15 MG TABLET PO SCH (09:53)
[2017-02-10] MEDS: METFORMIN HCL 500 MG TABLET PO SCH (09:53)
[2017-02-10] MEDS: ATORVASTATIN CALCIUM 20 MG TABLET PO SCH (09:53)
[2017-02-10] MEDS: ASPIRIN 81 MG TABLET, ENT COATED PO SCH (09:53)
== END 2017-02-10 10:34 | disposition home or self-care (01) | DRG 308 ==
LOC: ER 08:15 → EH 11:42 → UNDOADMIN 11:42 → EH 11:51 → 3S 13:18
PROVIDERS: ADMIT Internal Medicine Geriatric Medicine; ATTEND Internal Medicine Geriatric Medicine
DX: I48.91 Unspecified atrial fibrillation (principal); J18.1 Lobar pneumonia, unspecified organism; I10 Essential (primary) hypertension; E11.9 Type 2 diabetes mellitus without complications; Z87.891 Personal history of nicotine dependence; Z79.82 Long term (current) use of aspirin; Z79.84 Long term (current) use of oral hypoglycemic drugs; E04.1 Nontoxic single thyroid nodule
CPT/HCPCS: 36415; 71010; 71250; 78452; 80048; 80053; 80061; 80076; 80307; 82140; 82150; 82550; 82553; 83036; 83690; 83880; 84100; 84443; 84484; 85025; 85610; 85730; 87040; 93005; 93010; 93017; 93306; 96365; 96366; 96368; 96375; 99291; A9500; J0280; J0282; J0456; J0696; J1650; J1956; J2785; J3490; J7030; J7060; Q9969

== ENCOUNTER 2017-07-15 23:17 | Emergency (ER) | payer MEDICARE, OTHER ==
[2017-07-15 23:34] VITALS: BP 133/61
[2017-07-15] MEDS ORDERED: ACETAMINOPHEN 325 MG TABLET PO ONE (23:48)
[2017-07-16] MEDS ORDERED: LIDOCAINE 1% INJ (10 MG/ML) 10 ML MDV INJ ONE (00:06)
[2017-07-16] MEDS ORDERED: LIDOCAINE 1% INJ-PF (10 MG/ML) 30 ML SDV ONE (00:24)
[2017-07-16] MEDS ORDERED: DIPH/PERTUSS(ACELL)/TETANUS VAC/PF 0.5 ML SYR (>=10YO) IM ONE (00:27)
--- NOTE | 2017-07-16 00:52 | ER Document Report ---
ED General - General Chief Complaint: Laceration Stated Complaint: FALL/HEAD LACERATION Time Seen by Provider: 07/15/17 23:48 Notes: Patient is a 71-year-old male with a past medical history of diabetes who presents after he struck his right frontoparietal scalp on the edge of his bed while packing a suitcase just prior to arrival. He did sustain a 3 cm laceration to the area. He does describe a dull, constant, throbbing pain to the area. Nothing improves or worsens his pain. He denies any loss of status, vomiting, weakness, numbness, altered mental status since time of injury. No history of similar injuries in the past. He is uncertain of the date of his last tetanus shot. Denies any additional injuries or concerns. He denies use of anticoagulation. TRAVEL OUTSIDE OF THE [place] IN LAST 30 DAYS: No - Related Data Allergies/Adverse Reactions: No Known Allergies Allergy (Verified 02/07/17 08:20) Past Medical History - General Information source: Patient - Social History Smoking Status: Never Smoker Frequency of alcohol use: None Drug Abuse: None Lives with: Spouse/Significant other Family History: Reviewed & Not Pertinent Patient has suicidal ideation: No Patient has homicidal ideation: No - Past Medical History Cardiac Medical History: Reports: Hx Hypertension Denies: Hx Coronary Artery Disease, Hx Heart Attack Pulmonary Medical History: Denies: Hx Asthma, Hx Bronchitis, Hx COPD, Hx Pneumonia Neurological Medical History: Denies: Hx Cerebrovascular Accident, Hx Seizures Endocrine Medical History: Reports: Hx Diabetes Mellitus Type 2 Renal/ Medical History: Denies: Hx Peritoneal Dialysis Musculoskeltal Medical History: Denies Hx Arthritis - Immunizations Hx Diphtheria, Pertussis, Tetanus Vaccination: Yes Review of Systems - Review of Systems Notes: Constitutional: Negative for fever. Eyes: Negative for visual changes. ENT: Negative for facial injury Cardiovascular: Negative for chest injury. Respiratory: Negative for shortness of breath. Gastrointestinal: Negative for abdominal injury. Genitourinary: Negative for genital injury Musculoskeletal: Negative for back injury. Skin: Positive for laceration/abrasions. Neurological: Positive for head injury. Physical Exam - Vital signs Vitals: Temp Pulse Resp BP Pulse Ox 97.6 F 66 16 133/61 H 95 07/15/17 23:27 07/15/17 23:27 07/15/17 23:27 07/15/17 23:27 07/15/17 23:27 Interpretation: Normal Notes: PHYSICAL EXAMINATION: GENERAL: Well-appearing, no acute distress. HEAD: Atraumatic, normocephalic. EYES: Pupils equal round and reactive to light, extraocular movements intact, sclera anicteric, conjunctiva are normal. ENT: nares patent, no oral pharyngeal trauma. No hemotympanum, no Martines's sign , no raccoon eyes. NECK: No midline cervical spine tenderness. Patient able to move their head to 45 bilaterally without any discomfort. LUNGS: Breath sounds clear to auscultation bilaterally and equal. No wheezes rales or rhonchi. HEART: Regular rate and rhythm without murmurs. EXTREMITIES: Normal range of motion, no pitting or edema. No long bone deformities. NEUROLOGICAL: Face symmetric. Tongue protrudes midline. Extraocular motions intact. Pupils are 2 mm and equally reactive. Normal speech, normal gait. 5 out of 5 strength in both the distal and proximal upper and lower extremities bilaterally. Sensation is grossly intact throughout. Finger to nose testing normal. Pronator drift normal. PSYCH: Normal mood, normal affect. SKIN: Warm, Dry, normal turgor, 3 cm right frontal parietal laceration Course - Re-evaluation Re-evalutation: 07/16/17 00:50 Presentation of head trauma in an otherwise well-appearing patient. No focal neurologic deficits on exam, no evidence of basilar skull fracture on exam without evidence of hemotympanum, raccoon eyes, or periauricular hematoma. No papilledema. Patient is not on anticoagulation. GCS is 15. No loss of consciousness. No episodes of vomiting. Contrary to triage note, patient is not on anticoagulation. However I did recommend a CT of the head and cervical spine be obtained due to his age and the inability to completely clinically clear him given that he is older than 65 years of age. The patient did declined this stating that he does not feel this is necessary. I have reviewed with him that he could have an asymptomatic cervical spine fracture or intracranial bleed that could significantly worsen over the next several days to weeks. He has verbalized an understanding that he could or have permanent neurologic injury due to this delayed diagnosis. His daughter and are at the bedside and witnessed this conversation. He did have a 3 cm laceration over the right scalp which was repaired using 4 nylon stitches. His tetanus has been updated. He does not have any additional injuries. At this time will discharge with return precautions and follow-up recommendations. Verbal discharge instructions given a the bedside and opportunity for questions given. Medication warnings reviewed. Patient is in agreement with this plan and has verbalized understanding of return precautions and the need for primary care follow-up in the next 24-72 hours. - Vital Signs Vital signs: Temp Pulse Resp BP Pulse Ox 97.6 F 66 16 133/61 H 95 07/15/17 23:27 07/15/17 23:27 07/15/17 23:27 07/15/17 23:27 07/15/17 23:27 Procedures - Laceration/Wound Repair Right Head Wound length (cm): 3 Wound's Depth, Shape: Superficial Laceration pre-procedure: Sterile PPE donned Anesthetic type: 1% Lidocaine Volume Anesthetic (mLs): 1 Wound explored: Clean Irrigated w/ Saline (mLs): 500 Wound Debrided: Minimal Wound Repaired With: Sutures Suture Size/Type: 4:0, Nylon Number of Sutures: 4 Layer Closure?: No Post-procedure wound care: Sterile dressing applied Post-procedure NV exam normal: Yes Complications: No Discharge - Discharge Clinical Impression: Scalp laceration Qualifiers: Encounter type: initial encounter Qualified Code(s): S01.01XA - Laceration without foreign body of scalp, initial encounter Head trauma Qualifiers: Encounter type: initial encounter Qualified Code(s): S09.90XA - Unspecified injury of head, initial encounter Condition: Good Disposition: HOME, SELF-CARE Additional Instructions: Please return to your primary doctor, the ED, or an urgent care in 7 days for suture removal. Return immediately if you develop spreading redness around the wound, pus from the wound, worsening pain, or a fever of >100.4. Keep the area clean and dry. Wash gently with soap and water twice daily and cover with antibiotic ointment. You have likely sustained a contusion (bruise) to your head. You did refuse a CT scan today. Symptoms to expect from a concussion include nausea, mild to moderate headache, difficulty concentrating or sleeping, and mild lightheadedness. These symptoms should improve over the next few days to weeks. Return to the emergency department or follow-up with your primary care doctor if your symptoms are not improving over this time. Signs of a more serious head injury include vomiting, severe headache, excessive sleepiness or confusion, and weakness or numbness in your face, arms or legs. Return immediately to the Emergency Department if you experience any of these more concerning symptoms. Rest, avoid strenuous physical or mental activity, and avoid activities that could potentially result in another head injury until all your symptoms from this head injury are completely resolved for at least 2-3 weeks. If you participate in sports, get cleared by your doctor or rehab trainer before returning to play. You may take ibuprofen or acetaminophen over the counter according to label instructions for mild headache or scalp soreness. Referrals: DOROTHY AKINS MD [Primary Care Provider] - Follow up as needed
== END 2017-07-16 01:38 | disposition home or self-care (01) ==
LOC: ER 23:17
PROC: 0HQ0XZZ Repair Scalp Skin, External Approach (ICD-10-PCS; principal; 2017-07-15)
DX: S01.01XA Laceration without foreign body of scalp, initial encounter (principal); S09.90XA Unspecified injury of head, initial encounter; E11.9 Type 2 diabetes mellitus without complications; W19.XXXA Unspecified fall, initial encounter
CPT/HCPCS: 90471; 90715; 99282

== ENCOUNTER → 2018-06-04 | Outpatient (CLI) | payer OTHER ==
--- NOTE | 2018-06-04 11:03 | RADIOLOGY REPORT (SQ) ---
EXAM DESCRIPTION: MRI CERVICAL SPINE WITHOUT COMPLETED DATE/TIME: 06/04/2018 10:45 am REASON FOR STUDY: RADICULOPATHY, CERVICAL REGION M54.12 RADICULOPATHY, CERVICAL REGION COMPARISON: None. TECHNIQUE: Sagittal and Axial imaging includes T1, T2, STIR and gradient echo sequences. LIMITATIONS: None. FINDINGS: ALIGNMENT: Normal. VERTEBRAE: Intact. BONE MARROW: Reactive endplate changes C6-7. DISCS: Loss of T2 signal C6-7. HARDWARE: None in the spine. CORD AND BASE OF BRAIN: Normal in size and signal intensity. SOFT TISSUES: 3 cm cyst in the right lobe of the thyroid gland. C1-C2: No significant spinal stenosis. C2-C3: No significant spinal stenosis or exit foraminal stenosis. C3-C4: Right-sided uncovertebral osteophytes with mild narrowing of the right exit foramina. C4-C5: Left-sided facet and lateral hypertrophy vertebral osteophyte with moderate narrowing of the l eft exit foramina. C5-C6: Disc osteophyte complexes with mild narrowing of the exit foramina. C6-C7: Degenerative disc. Small disc osteophyte complexes. Mild narrowing of the exit foramina. C7-T1: No significant spinal stenosis or exit foraminal stenosis. UPPER THORACIC: Incompletely imaged. No significant spinal stenosis or exit foraminal stenosis. OTHER: No other significant finding. IMPRESSION: Multilevel spondylosis. Moderate narrowing of the left exit foramina C4-5. TECHNICAL DOCUMENTATION: JOB ID: [id number] [employer]- All Rights Reserved Reading location - IP/workstation name: [email or web address]
== END ==
LOC: RAD 09:20
PROVIDERS: ATTEND Internal Medicine Geriatric Medicine
DX: M54.12 Radiculopathy, cervical region (principal)
CPT/HCPCS: 72141

== ENCOUNTER → 2018-10-04 | Outpatient (CLI) | payer OTHER ==
--- NOTE | 2018-10-04 15:47 | RADIOLOGY REPORT (SQ) ---
EXAM DESCRIPTION: ARTERIAL LOWER EXTREM BILAT COMPLETED DATE/TIME: 10/04/2018 3:38 pm REASON FOR STUDY: PVD I73.9 PERIPHERAL VASCULAR DISEASE, UNSPECIFIED COMPARISON: None. TECHNIQUE: Dynamic and static almaguer scale and color images acquired of the lower extremity arteries. Additional selected spectral images recorded. ABIs were attempted, patient refused arm blood pressu res LIMITATIONS: None. FINDINGS: RIGHT LEG: ABIS: Patient refused INFLOW ARTERIES: Normal, no obstruction evident. FEMORAL ARTERIES:Multiphasic waveforms. Normal, no velocity elevation to suggest focal stenosis. Norm al color Doppler evaluation. No aneurysm. POPLITEAL ARTERY:Multiphasic waveforms. Normal, no velocity elevation to suggest focal stenosis. Norm al color Doppler evaluation. No aneurysm. PATENT TIBIOPERONEAL TRUNK AND 3 VESSEL RUNOFF: Yes, normal vessels. TBI: Not performed. OTHER: Normal five toe plethysmography waveforms LEFT LEG: ABIS: Normal, over 1.0. INFLOW ARTERIES: Normal, no obstruction evident. FEMORAL ARTERIES:Multiphasic waveforms. Normal, no velocity elevation to suggest focal stenosis. Norm al color Doppler evaluation. No aneurysm. POPLITEAL ARTERY:Multiphasic waveforms. Normal, no velocity elevation to suggest focal stenosis. Norm al color Doppler evaluation. No aneurysm. PATENT TIBIOPERONEAL TRUNK AND 3 VESSEL RUNOFF: Yes, normal vessels. TBI: Not performed. OTHER: Normal five toe plethysmography waveforms . IMPRESSION: NORMAL BILATERAL LOWER EXTREMITY ARTERIAL DOPPLER WITHOUT ABIs. COMMENT: COUNT INCLUDES THE [facility] NORMAL: Greater than 1.0 MINIMAL DISEASE: 0.9 to 1.0 CLAUDICATION: 0.5 to 0.9 SEVERE ARTERIAL DISEASE: Less than 0.5 [facility] NORMAL: Greater than 1.0 (1.2 If Heavy Calcifications) NORMAL TO MILD ISCHEMIA: 0.8 to 1.0 MODERATE ISCHEMIA: 0.4 to 0.8 SEVERE ISCHEMIA: Less than 0.4 TECHNICAL DOCUMENTATION: JOB ID: [id number] [employer]- All Rights Reserved Reading location - IP/workstation name: [email or web address] INCLUDES THE [facility]-[email or web address]
== END ==
LOC: SP 10:26
PROVIDERS: ATTEND Podiatrist Foot & Ankle Surgery
DX: I73.9 Peripheral vascular disease, unspecified (principal)
CPT/HCPCS: 93925

== ENCOUNTER 2018-11-08 15:40 | Inpatient (IN) | payer OTHER, MEDICARE ==
[2018-11-08] MEDS ORDERED: ADENOSINE INJ/PF 6 MG/2 ML SDV IV ONE ×3 (16:34→18:22)
[2018-11-08] MEDS ORDERED: ASPIRIN 81 MG TABLET, CHEWABLE PO ONE (16:38)
[2018-11-08 16:59] LABS: ABSOLUTE LYMPHOCYTES (AUTO) 1.3 10^3/uL (0.5-4.7); ABSOLUTE MONOCYTES (AUTO) 1.3 10^3/uL (0.1-1.4); ABSOLUTE NEUT (AUTO) 12.7 10^3/uL (1.7-8.2); BASOPHILS % (AUTO) 0.2 % (0-2); EOSINOPHILS % (AUTO) 0.2 % (0-6); HEMATOCRIT 45.2 % (37.9-51.0); HEMOGLOBIN 15.2 g/dL (13.5-17.0); LYMPHOCYTES % (AUTO) 8.6 % (13-45); MEAN CORPUSCULAR HEMOGLOBIN 27.9 pg (27.0-33.4); MEAN CORPUSCULAR HGB CONC 33.6 g/dL (32.0-36.0); MEAN CORPUSCULAR VOLUME 83 fl (80-97); MONOCYTES % (AUTO) 8.2 % (3-13); PLATELET COUNT 389 10^3/uL (150-450); RED BLOOD COUNT 5.44 10^6/uL (4.35-5.55); RED CELL DISTRIBUTION WIDTH 15.5 % (11.5-14.0); SEGMENTED NEUTROPHILS % (AUTO) 82.8 % (42-78); TOTAL CELLS COUNTED % (AUTO) 100 %; WHITE BLOOD COUNT 15.3 10^3/uL (4.0-10.5)
[2018-11-08] MEDS ORDERED: DILTIAZEM HCL INJ 25 MG/5 ML VIAL IV ONE (17:00)
--- NOTE | 2018-11-08 17:02 | ER Document Report ---
ED General - General Chief Complaint: Palpitations/ short of breath Stated Complaint: RAPID HEART RATE Time Seen by Provider: 11/08/18 15:57 Mode of Arrival: Ambulatory Information source: Patient Notes: Patient is Maori speaking 72 year old Male who presents to the ED with complaints of tachycardia that started yesterday. Patient says he has a history of atrial fibrillation and is on metoprolol. He's taking his medication as directed. Denies any alleviating or exacerbating factors. Denies chest pain, shortness of breath, nausea, vomiting. 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 History of CAD, HTN per patient. Denies hyperlipidemia, smoking, family history of CAD, DM. TRAVEL OUTSIDE OF THE [place] IN LAST 30 DAYS: No - HPI Onset: Yesterday Onset/Duration: Sudden Quality of pain: No pain Severity: None Pain Level: Denies Associated symptoms: None Exacerbated by: Denies Relieved by: Denies Similar symptoms previously: Yes Recently seen / treated by doctor: No - Related Data Allergies/Adverse Reactions: No Known Allergies Allergy (Verified 02/07/17 08:20) Past Medical History - General Information source: Patient - Social History Smoking Status: Never Smoker Chew tobacco use (# tins/day): No Frequency of alcohol use: None Drug Abuse: None Family History: Reviewed & Not Pertinent Patient has suicidal ideation: No Patient has homicidal ideation: No - Past Medical History Cardiac Medical History: Reports: Hx Hypertension Denies: Hx Coronary Artery Disease, Hx Heart Attack Pulmonary Medical History: Denies: Hx Asthma, Hx Bronchitis, Hx COPD, Hx Pneumonia Neurological Medical History: Denies: Hx Cerebrovascular Accident, Hx Seizures Endocrine Medical History: Reports: Hx Diabetes Mellitus Type 2 Renal/ Medical History: Denies: Hx Peritoneal Dialysis Musculoskeletal Medical History: Denies Hx Arthritis - Immunizations Hx Diphtheria, Pertussis, Tetanus Vaccination: Yes Review of Systems - Review of Systems Constitutional: No symptoms reported EENT: No symptoms reported Cardiovascular: Palpitations Respiratory: No symptoms reported Gastrointestinal: No symptoms reported Genitourinary: No symptoms reported Musculoskeletal: No symptoms reported Skin: No symptoms reported Hematologic/Lymphatic: No symptoms reported Neurological/Psychological: No symptoms reported -: Yes All other systems reviewed and negative Physical Exam - Vital signs Vitals: Pulse 182 H 11/08/18 15:43 - Notes Notes: PHYSICAL EXAMINATION: GENERAL: Well-appearing, well-nourished and in no acute distress. HEAD: Atraumatic, normocephalic. EYES: Pupils equal round and reactive to light, extraocular movements intact, sclera anicteric, conjunctiva are normal. ENT: Nares patent, oropharynx clear without exudates. Moist mucous membranes. NECK: Normal range of motion, supple without lymphadenopathy LUNGS: Breath sounds clear to auscultation bilaterally and equal. No wheezes rales or rhonchi. HEART: Irregularly irregular ABDOMEN: Soft, nontender, nondistended abdomen. No guarding, no rebound. No masses appreciated. Musculoskeletal: Normal range of motion, no pitting or edema. No cyanosis. NEUROLOGICAL: Cranial nerves grossly intact. Normal speech, normal gait. Normal sensory, motor exams PSYCH: Normal mood, normal affect. SKIN: Warm, Dry, normal turgor, no rashes or lesions noted. Course - Re-evaluation Re-evalutation: 11/08/18 18:41 EKG: Ventricular rate 173, QRS duration 126, QTc 509, wide-complex tachycardia, right bundle branch block. Repeat EKG done at 1621, ventricular rate 159, PA interval 76, castration 132, QTc 528, wide-complex tachycardia, right bundle branch block. Repeat EKG done at 1651, ventricular rate 166, QRS duration 136, QTc 519, right bundle branch block, wide complex tachycardia. Repeat EKG done at 1730, ventricular rate 105, castration 88, QTc 445, atrial fibrillation. Patient's EKG shows a wide complex tachycardia. 11/08/18 19:32 Patient in wide complex tachycardia on arrival. Denies chest pain. Just feels heart beating fast. Blood pressure stable. As the patient has wide complex tachycardia, he was given a total of 500mg of procainamide. There was no cessation of the tachycardia. I contacted Dr. Barber. He would like the procainamide stopped and to give adenosine. He would like 6mg, 12mg, 12mg of adenosine given. No resolution of the tachycardia. Rhythm slowed enough to show atrial fibrillation. Patient does have a history of atrial fibrillation and is on metoprolol. I contacted Dr. Barber again. He would like the patient started on a cardizem drip. Labs and imaging obtained. No acute process identified. I contacted Dr. Bledsoe for admission. He's agreeable with admitting the patient. 11/08/18 23:24 - Vital Signs Vital signs: Temp Pulse Resp BP Pulse Ox 132 H 15 106/70 96 11/08/18 19:46 11/08/18 19:11 11/08/18 19:11 11/08/18 19:11 - Laboratory Result Diagrams: 11/08/18 16:10 11/08/18 16:10 Laboratory results interpreted by me: 11/08/18 11/08/18 16:10 16:10 WBC 15.3 H RDW 15.5 H Seg Neutrophils % 82.8 H Lymphocytes % 8.6 L Absolute Neutrophils 12.7 H Sodium 134.3 L BUN 29 H Glucose 256 H Discharge - Discharge Clinical Impression: Atrial fibrillation Qualifiers: Atrial fibrillation type: unspecified Qualified Code(s): I48.91 - Unspecified atrial fibrillation Condition: Stable Disposition: ADMITTED INPATIENT Admitting Provider: Ladi Unit Admitted: [facility]
[2018-11-08 17:04] LABS: ALANINE AMINOTRANSFERASE 30 U/L (21-72); ALBUMIN 3.7 g/dL (3.5-5.0); ALKALINE PHOSPHATASE 72 U/L (38-126); ANION GAP 10 (5-19); ASPARTATE AMINO TRANSFERASE 30 U/L (17-59); BILIRUBIN,DIRECT 0.3 mg/dL (0.0-0.4); BILIRUBIN,TOTAL 0.7 mg/dL (0.2-1.3); BLOOD UREA NITROGEN 29 mg/dL (7-20); CALCIUM 8.8 mg/dL (8.4-10.2); CARBON DIOXIDE 23 mmol/L (22-30); CHLORIDE 101 mmol/L (98-107); CREATINE KINASE 70 U/L (55-170); GLUCOSE 256 mg/dL (75-110); POTASSIUM 4.1 mmol/L (3.6-5.0); SODIUM 134.3 mmol/L (137-145); TOTAL PROTEIN 6.8 g/dL (6.3-8.2)
[2018-11-08 17:16] LABS: CREATINE KINASE MB 1.42 ng/mL (<4.55); TROPONIN I 0.032 ng/mL
[2018-11-08] MEDS: DILTIAZEM HCL/D5W 125 MG/125 ML RTUINJ IV PRN (17:26)
--- NOTE | 2018-11-08 18:04 | RADIOLOGY REPORT (SQ) ---
EXAM DESCRIPTION: CHEST SINGLE VIEW COMPLETED DATE/TIME: 11/08/2018 5:54 pm REASON FOR STUDY: chest pain COMPARISON: 05/10/2012 NUMBER OF VIEWS: One view. TECHNIQUE: Single frontal radiographic view of the chest acquired. LIMITATIONS: None. FINDINGS: LUNGS AND PLEURA: No opacities, masses or pneumothorax. No pleural effusion. MEDIASTINUM AND HILAR STRUCTURES: No masses or contour abnormality. HEART AND VASCULATURE: Cardiac enlargement. Vascular congestion. BONES: No acute findings. HARDWARE: None in the chest. OTHER: No other significant finding. IMPRESSION: CARDIAC ENLARGEMENT. VASCULAR CONGESTION. TECHNICAL DOCUMENTATION: JOB ID: [id number] [employer]- All Rights Reserved Reading location - IP/workstation name: [email or web address]
--- NOTE | 2018-11-08 18:40 | EKG REPORT ---
SEVERITY:- ABNORMAL ECG - ATRIAL FIBRILLATION PAIRED VENTRICULAR PREMATURE COMPLEXES LOW VOLTAGE IN FRONTAL LEADS : Confirmed by: Reymundo Mercedes MD 08-Nov-2018 18:39:24
--- NOTE | 2018-11-08 18:40 | EKG REPORT ---
SEVERITY:- ABNORMAL ECG - WIDE COMPLEX TACHYCARDIA RIGHT BUNDLE BRANCH BLOCK : Confirmed by: Reymundo Mercedes MD 08-Nov-2018 18:40:05
[2018-11-08] MEDS ORDERED: INSULIN LISPRO 100 UNIT/ML 3 ML VIAL SUBCUT PRN (19:06)
[2018-11-08] MEDS ORDERED: DEXTROSE 50%-WATER 25 GM/50 ML DISP.SYRIN IV PRN ×2 (19:06)
[2018-11-08] MEDS ORDERED: GLUCAGON,HUMAN RECOMB 1 MG INJ IM PRN (19:06)
[2018-11-08] MEDS ORDERED: DEXTROSE 40% GEL 15 GM TUBE PO PRN ×2 (19:06)
--- NOTE | 2018-11-08 20:47 | PDOC H&P ---
History of Present Illness Admission Date/PCP: 11/08/18 18:40 DOROTHY TASHI Patient complains of: Rapid heartbeat History of Present Illness: ROSCOE HOWELL is a 72 year old male patient known to my practice who returned from [place] on 11/07/18 and presented to the ED with complain of rapid heartbeat since yesterday. He denied any chest pain, shortness of breath, dizziness, loss of consciousness, nausea, or vomiting. No fever or chills. He denied cigarette smoking, recent alcohol ingestion or illicit drug usage. He reported compliance with his medication and dietary restrictions. His initial evaluation in the ED was remarkable for concern regarding SVT with wide complex and no response to Adenosine administration with eventual diagnosis of Atrial Fibrillation with rapid ventricular rate. His morbidities include Paroxysmal Atrial Fibrillation, Hypertension, Diabetes mellitus type 2, Hyperlipidemia, BPH, Osteoarthritis, and sleep disorder. Past Medical History Cardiac Medical History: Reports: Hypertension Denies: Coronary Artery Disease, Myocardial Infarction Pulmonary Medical History: Denies: Asthma, Bronchitis, Chronic Obstructive Pulmonary Disease (COPD), Pneumonia Neurological Medical History: Denies: Seizures Endocrine Medical History: Reports: Diabetes Mellitus Type 2 Musculoskeltal Medical History: Denies: Arthritis Hematology: Denies: Anemia Social History Smoking Status: Never Smoker Frequency of Alcohol Use: None Hx Recreational Drug Use: No Drugs: None Hx Prescription Drug Abuse: No Family History Family History: Reviewed & Not Pertinent Parental Family History Reviewed: Yes Children Family History Reviewed: Yes Sibling(s) Family History Reviewed.: Yes Medication/Allergy Home Medications: Aspirin [Ecotrin] 81 mg PO DAILY 02/07/17 Dutasteride/Tamsulosin HCl [Ashley 0.5-0.4 mg Capsule] 1 cap PO DAILY 02/07/17 Empagliflozin/Linagliptin [Glyxambi 25 mg-5 mg Tablet] 1 tab PO DAILY 02/07/17 Lisinopril [Prinivil 10 mg Tablet] 10 mg PO DAILY 02/07/17 Pioglitazone HCl [Actos 15 mg Tablet] 15 mg PO DAILY 02/07/17 Metoprolol Tartrate [Lopressor 25 mg Tablet] 12.5 mg PO Q12 #60 tablet 02/10/17 Atorvastatin Calcium [Lipitor 10 mg Tablet] 10 mg PO QHS 11/08/18 Flu Vacc [id number](65Yr Up)/Pf [Fluzone High-Dose Syr] 0.5 ml IM .RECEIVED 09/04/18 11/08/18 Guaifenesin/Dextromethorphan [Coricidin Hbp Softgel] 2 each PO Q6HP PRN Metformin HCl [Glucophage 500 mg Tablet] 1,000 mg PO BIDACBS 11/08/18 Allergies/Adverse Reactions: No Known Allergies Allergy (Verified 02/07/17 08:20) Review of Systems Constitutional: ABSENT: chills, fever(s), headache(s), weight gain, weight loss Eyes: ABSENT: visual disturbances Ears: ABSENT: hearing changes Nose, Mouth, and Throat: ABSENT: as per HPI, headache(s), mouth pain, sore throat, vertigo, other Cardiovascular: PRESENT: palpitations. ABSENT: chest pain, dyspnea on exertion , edema, orthropnea Respiratory: ABSENT: cough, hemoptysis Gastrointestinal: ABSENT: abdominal pain, constipation, diarrhea, hematemesis, hematochezia, nausea, vomiting Genitourinary: ABSENT: dysuria, hematuria Musculoskeletal: ABSENT: joint swelling Integumentary: ABSENT: rash, wounds Neurological: ABSENT: abnormal gait, abnormal speech, confusion, dizziness, focal weakness, syncope Psychiatric: ABSENT: anxiety, depression, homidical ideation, suicidal ideation Endocrine: ABSENT: cold intolerance, heat intolerance, polydipsia, polyuria Hematologic/Lymphatic: ABSENT: easy bleeding, easy bruising, lymphadenopathy Allergic/Immunologic: ABSENT: seasonal rhinorrhea Physical Exam Vital Signs: Temp Pulse Resp BP Pulse Ox 182 H 15 106/70 96 11/08/18 15:43 11/08/18 19:11 11/08/18 19:11 11/08/18 19:11 General appearance: PRESENT: no acute distress, well-developed, well-nourished Head exam: PRESENT: atraumatic, normocephalic Eye exam: PRESENT: conjunctiva pink, EOMI, PERRLA. ABSENT: scleral icterus Ear exam: PRESENT: normal external ear exam Mouth exam: PRESENT: moist Respiratory exam: PRESENT: clear to auscultation freda Cardiovascular exam: PRESENT: irregular rhythm, +S1, +S2. ABSENT: diastolic murmur, systolic murmur Pulses: PRESENT: +1 pedal pulses bilateral Vascular exam: PRESENT: normal capillary refill. ABSENT: pallor GI/Abdominal exam: PRESENT: normal bowel sounds, soft. ABSENT: distended, guarding, mass, organolmegaly, rebound, tenderness Rectal exam: PRESENT: deferred Extremities exam: ABSENT: pedal edema Musculoskeletal exam: PRESENT: normal inspection Neurological exam: PRESENT: alert, awake, oriented to person, oriented to place , oriented to time, oriented to situation, CN II-XII grossly intact. ABSENT: motor sensory deficit Psychiatric exam: PRESENT: appropriate affect, normal mood. ABSENT: homicidal ideation, suicidal ideation Skin exam: PRESENT: dry, intact, warm. ABSENT: cyanosis, rash Results Laboratory Results: 11/08/18 18:45 Troponin I 0.033 Impressions: Chest X-Ray 11/08/18 16:38 IMPRESSION: CARDIAC ENLARGEMENT. VASCULAR CONGESTION. Assessment & Plan - Diagnosis (1) Atrial fibrillation with rapid ventricular response Is this a current diagnosis for this admission?: Yes Plan: Patient will remain on IV Cardizem drip. Start on Lovenox 1mg/kg SC [id number] therapy for anticoagulation therapy. I will request cardiology consultation with Dr. Hair. 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 (3) Hypertension Qualifiers: Hypertension type: essential hypertension Qualified Code(s): I10 - Essential (primary) hypertension Is this a current diagnosis for this admission?: Yes Plan: Continue on his preadmission medication management. Adjust dosing to allow Cardizem therapy. (4) HLD (hyperlipidemia) Qualifiers: Hyperlipidemia type: pure hypercholesterolemia Qualified Code(s): E78.00 - Pure hypercholesterolemia, unspecified; E78.0 - Pure hypercholesterolemia Is this a current diagnosis for this admission?: Yes Plan: Continue on his preadmission medication management. (5) BPH NOS w ur obs/LUTS Plan: Continue on his preadmission medication management. (6) Osteoarthritis involving multiple joints on both sides of body Is this a current diagnosis for this admission?: Yes Plan: Continue on his preadmission medication management. (7) Cervical radiculopathy due to degenerative joint disease of spine Is this a current diagnosis for this admission?: Yes Plan: Continue on his preadmission medication management. (8) Sleep disorder Is this a current diagnosis for this admission?: Yes Plan: Continue on his preadmission medication management. - Time Time Spent: 50 to 70 Minutes Medications reviewed and adjusted accordingly: Yes Anticipated discharge: Home Within: Other - Inpatient Certification Based on my medical assessment, after consideration of the patient's comorbidities, presenting symptoms, or acuity I expect that the services needed warrant INPATIENT care.: Yes I certify that my determination is in accordance with my understanding of Medicare's requirements for reasonable and necessary INPATIENT services [42 CFR 412.3e].: Yes Medical Necessity: Need Close Monitoring Due to Risk of Patient Decompensation, Need For Continuous Telemetry Monitoring, Risk of Complication if Not Cared For in Hospital Post Hospital Care: D/C Personal Insurance Advisor Documentation - Plan Summary Plan Summary: See admitting attending physician orders as per outlined care plan.
[2018-11-08] MEDS: ENOXAPARIN SODIUM INJ 100 MG/1 ML DISP.SYRIN SUBCUT SCH (22:01)
[2018-11-08] MEDS: ATORVASTATIN CALCIUM 10 MG TABLET PO SCH (22:01)
[2018-11-08] MEDS: METOPROLOL TARTRATE 25 MG TABLET PO SCH (22:01)
[2018-11-09] MEDS: DILTIAZEM HCL/D5W 125 MG/125 ML RTUINJ IV PRN ×3 (01:32→18:29)
[2018-11-09] MEDS: LANSOPRAZOLE 30 MG TAB.RAP.DR PO SCH (06:39)
[2018-11-09 07:14] LABS: HEMATOCRIT 39.4 % (37.9-51.0); HEMOGLOBIN 13.3 g/dL (13.5-17.0); MEAN CORPUSCULAR HEMOGLOBIN 28.2 pg (27.0-33.4); MEAN CORPUSCULAR HGB CONC 33.8 g/dL (32.0-36.0); MEAN CORPUSCULAR VOLUME 83 fl (80-97); PLATELET COUNT 297 10^3/uL (150-450); RED BLOOD COUNT 4.73 10^6/uL (4.35-5.55); RED CELL DISTRIBUTION WIDTH 14.9 % (11.5-14.0); WHITE BLOOD COUNT 10.5 10^3/uL (4.0-10.5)
[2018-11-09 07:36] LABS: ALANINE AMINOTRANSFERASE 30 U/L (21-72); ALBUMIN 3.1 g/dL (3.5-5.0); ALKALINE PHOSPHATASE 57 U/L (38-126); ANION GAP 7 (5-19); ASPARTATE AMINO TRANSFERASE 20 U/L (17-59); BILIRUBIN,DIRECT 0.1 mg/dL (0.0-0.4); BILIRUBIN,TOTAL 0.8 mg/dL (0.2-1.3); BLOOD UREA NITROGEN 19 mg/dL (7-20); CALCIUM 8.6 mg/dL (8.4-10.2); CARBON DIOXIDE 25 mmol/L (22-30); CHLORIDE 102 mmol/L (98-107); CHOLESTEROL 101.83 mg/dL (0-200); GLUCOSE 121 mg/dL (75-110); POTASSIUM 4.5 mmol/L (3.6-5.0); SODIUM 133.7 mmol/L (137-145); TOTAL PROTEIN 5.5 g/dL (6.3-8.2); TRIGLYCERIDES 72 mg/dL (<150)
[2018-11-09 07:46] LABS: DIRECT LDL 74 mg/dL (<100)
--- NOTE | 2018-11-09 07:48 | EKG REPORT ---
SEVERITY:- ABNORMAL ECG - WIDE COMPLEX TACHYCARDIA - LIKELY A FIB WITH RVR RIGHT BUNDLE BRANCH BLOCK AND LPFB : Confirmed by: Reymundo Mercedes MD 09-Nov-2018 07:48:06
[2018-11-09 08:51] LABS: APPEARANCE,URINE CLEAR; BILIRUBIN,URINE NEGATIVE (NEGATIVE); COLOR,URINE YELLOW; GLUCOSE, URINE >=500 mg/dL (NEGATIVE); KETONES,URINE 20 mg/dL (NEGATIVE); LEUKOCYTE ESTERASE,URINE NEGATIVE (NEGATIVE); NITRITE,URINE NEGATIVE (NEGATIVE); PROTEIN,URINE NEGATIVE (NEGATIVE); URINE SPECIFIC GRAVITY 1.022; UROBILINOGEN,URINE NEGATIVE mg/dL (<2.0)
[2018-11-09] MEDS: METOPROLOL TARTRATE 25 MG TABLET PO SCH ×2 (09:02→22:20)
[2018-11-09] MEDS: METFORMIN HCL 500 MG TABLET PO SCH ×2 (09:02→16:57)
[2018-11-09] MEDS: PIOGLITAZONE HCL 15 MG TABLET PO SCH (09:03)
[2018-11-09] MEDS: ENOXAPARIN SODIUM INJ 100 MG/1 ML DISP.SYRIN SUBCUT SCH ×2 (09:03→22:18)
[2018-11-09] MEDS ORDERED: EMPAGLIFLOZIN PO SCH (10:00)
[2018-11-09] MEDS ORDERED: DUTASTERIDE PO SCH (10:00)
[2018-11-09] MEDS ORDERED: LINAGLIPTIN PO SCH (10:00)
[2018-11-09] MEDS ORDERED: TAMSULOSIN HCL PO SCH (10:00)
[2018-11-09] MEDS ORDERED: LISINOPRIL 10 MG TABLET PO SCH (10:00)
--- NOTE | 2018-11-09 12:54 | EKG REPORT ---
SEVERITY:- DEFECTIVE ECG - ATRIAL FIBRILLATION, V-RATE 62-118 LOW VOLTAGE IN FRONTAL LEADS : Confirmed by: Reymundo Mercedes MD 09-Nov-2018 12:53:26
[2018-11-09] MEDS ORDERED: DIGOXIN INJ 0.5 MG/2 ML AMPULE IV ONE ×2 (14:00→20:30)
[2018-11-09 14:20] LABS: FREE T3 3.9 pg/mL (2.77-5.27); FREE T4 (FREE THYROXINE) 1.42 ng/dL (0.78-2.19)
[2018-11-09 14:34] LABS: THYROID STIMULATING HORMONE 1.07 uIU/mL (0.47-4.68)
[2018-11-09] MEDS ORDERED: DIGOXIN INJ 0.5 MG/2 ML AMPULE ONE (19:58)
--- NOTE | 2018-11-09 20:19 | PDOC CONSULTATION ---
Consultation-Blank Consultation: Cardiology consultation by Dr. Paula Barber on 11/09/2018. Patient seen at on 11/09/2018. 60 minutes spent on this patient, with more than 50% time spent in direct patient care. Patient is a full code, his daughter is his surrogate healthcare decision maker. REASON FOR CONSULTATION: Atrial fibrillation with rapid ventricular response. HISTORY PRESENT ILLNESS. Patient is a 72-year-old male, with a history of hypertension, diabetes mellitus, and history of proximal atrial fibrillation, states that he had sudden onset of palpitations with shortness of breath. The patient denies any chest pain or discomfort. There is no PND orthopnea. The patient complains of generalized fatigue and weakness but no dizziness or syncope. He came to the emergency room where he was found to be in a regular wide-complex tachycardia, most likely atrial fibrillation with right bundle branch block pattern. The patient initially in the emergency room was started on pro-procaine ND drip. The patient did not convert. The ER physician called me. I have asked her to stop the patient's Pronestyl, and to give the patient adenosine so as to a certain what the underlying rhythm was. With adenosine it was found that the patient's underlying rhythm was atrial fibrillation. The patient was started on Cardizem infusion intravenously at 15 mg/h by the ER physician at my recommendation. At present the patient states he has no shortness of breath. Since his heart rate has been controlled. But in spite of this the patient does have palpitations. He denies any TIA CVA symptoms. Note that the patient is also on full dose anticoagulation. PAST MEDICAL HISTORY: Patient has a history of hypertension. He has history of proximal atrial fibrillation. In 2017 the patient was admitted with atrial fibrillation with rapid ventricular response, and he converted to sinus rhythm. He also has a history of hyperlipidemia. He has a history of diabetes mellitus type 2 [id number]. He has no history of TIA CVA. There is no history of thyroid disease. He has a history of hyperlipidemia. He has a history of osteoarthritis. There is no history of chronic kidney disease. There is no history of TIA CVA. The patient has no history of asthma or COPD. He also has a history of benign prostatic hypertrophy, but no history of chronic kidney disease. PAST SURGICAL HISTORY: The patient has not had any surgeries. ALLERGIES: The patient has no known allergies. SOCIAL HISTORY: The patient does not smoke there is no history of EtOH abuse. Next FAMILY HISTORY: There is a family history of diabetes mellitus in his mother. There is no history of coronary artery disease in the family. There is no history of premature coronary artery disease or sudden in the family. REVIEW OF SYSTEMS: Constitutional scratch that CONSTITUTIONAL: Denies any fever chills or rigors. Since the onset of palpitation the patient has generalized fatigue. Head: There is no dizziness or headaches or migraines or headaches, or head injury. EYES: No history of amblyopia or diplopia. No amaurosis fugax. EARS: No history of hearing loss. No tinnitus. No vertigo. NOSE: No history of hayfever no history of nasal polyps. No history of nosebleeds. MOUTH: No history of altered taste sensation. No history of ulcers in the mouth. No bleeding from the gums. THROAT: No no odynophagia or dysphagia. No recurrent sore throats. SKIN: No pruritus. No history of yellowish discoloration of the skin. No history of psoriasis. No history of skin cancer. NECK: No history of neck pain. No history of swelling in the neck. LUNGS: No history of asthma or COPD. No history of sleep apnea. No history of pulmonary embolism. No history of pleuritic chest pain. No wheezing. No history of upper or lower respiratory tract infections. There is no pleuritic chest pain. There is no hemoptysis. CARDIAC: No history of coronary artery disease. No history of ND or angina. No history of congestive heart failure. History of paroxysmal atrial fibrillation with recurrence now. History of hypertension present patient's claims that he takes his medication regularly and his blood pressure is well controlled. No history of dizziness or PND or orthopnea. No syncope. GI: No history of GERD. No history of peptic ulcer disease. No history of jaundice. No history of decreased appetite. No history of ascites. No history of jaundice. No history of altered bowel movements. No history of GI bleed. RENAL: No history of chronic kidney disease. No symptoms or hematuria pyuria or dysuria. No symptoms a UTI. History of benign prostatic hypertrophy. He states symptoms controlled with medication. MUSCULAR skeletal: History of osteoarthritis present no history of collagen vascular disease. ENDOCRINE: No history of thyroid disease. No history of heat or cold intolerance. History of diabetes mellitus type 2 [id number]. No history of polydipsia polyuria. No. Metabolic history of hyperlipidemia present. No history of gout. PCU RN: No history of TIA CVA no history of headaches migraines or seizures. PSYCHIATRIC: No history of anxiety or depression. No suicidal ideation. No homicidal ideation. VASCULAR: No history of calf or buttock claudication. No DVT. HEMATOLOGICAL: No history of anemia. No history of bleeding diathesis. No history of clotting disorders. PHYSICAL EXAMINATION: The patient is well-built and well-nourished. At present in no acute distress. He looks younger than his stated age. He is in no acute distress. Selected Entries 11/09/18 11:38 Temperature 97.4 F Temperature Oral Source Pulse Rate 93 Respiratory 16 Rate Blood Pressure 92/47 L Blood Pressure 62 Mean BP Location Right Arm BP Position Sitting O2 Sat by Pulse 93 Oximetry Oxygen Delivery Room Air Method HEAD: Head is atraumatic normocephalic. EYES: Pupils are equal round regular react to light accommodation. Extra ocular movements are normal there is no conjunctival pallor. There is no scleral icterus. Ears: Tympanic membranes are intact. External auditory canals are clear. NOSE: There is no deviated nasal septum. There is no inflammation of the nasal mucous membrane. MOUTH: Mucous membranes of mouth are moist tongue is moist there is no ulcers there is no bleeding from the gums. THROAT: There is no redness of the oropharynx there is no exudates. SKIN: There is no petechia or ecchymosis. There is no skin rash or skin lesions. NECK: Is supple. There is no JVD. Carotids equal there is no bruit. There is no lymphadenopathy. There is no goiter. There is no accessory muscle respiration use. Trachea central. Lungs: Clear to auscultation percussion. There is no rhonchi rales or wheezing. There is no chest wall tenderness on palpation. HEART: S1-S2 is heard S1 is of variable intensity. There is no S3 gallop. There is no S4 gallop. There is systolic murmur left sternal border and apex. There is no rub. ABDOMEN: Soft. Nontender. Bowel sounds are well heard. There is no hepatosplenic megaly. There is no tender areas. There is no rebound guarding or rigidity. EXTREMITIES: Femorals are well felt there is no femoral bruits leg pulses well felt. There is no pedal edema. There is no leg edema. There is no cellulitis or DVT. There is no calf tenderness. THERE is no cyanosis or clubbing. Capillary refill is normal. PCU RN: Patient is conscious awake alert oriented x3 with no focal deficits. PSYCHIATRIC: The patient judgment insight are intact his affect is normal. 11/09/18 11/09/18 11/09/18 06:50 06:50 06:50 WBC 10.5 RBC 4.73 Hgb 13.3 L Hct 39.4 MCV 83 MCH 28.2 MCHC 33.8 RDW 14.9 H Plt Count 297 Sodium 133.7 L Potassium 4.5 Chloride 102 Carbon Dioxide 25 Anion Gap 7 BUN 19 Creatinine 0.66 Est GFR (Non-Af Amer) > 60 Glucose 121 H Hemoglobin A1c % 6.3 H Calcium 8.6 Magnesium Total Bilirubin 0.8 Direct Bilirubin 0.1 Neonat Total Bilirubin Not Reportable Neonat Direct Bilirubin Not Reportable Neonat Indirect Bili Not Reportable AST 20 ALT 30 Alkaline Phosphatase 57 Total Protein 5.5 L Albumin 3.1 L Triglycerides 72 Cholesterol 101.83 LDL Cholesterol Direct 74 VLDL Cholesterol 14.0 HDL Cholesterol 30 L TSH Free T4 Free T3 pg/mL 11/09/18 11/09/18 06:50 06:50 WBC RBC Hgb Hct MCV MCH MCHC RDW Plt Count Sodium Potassium Chloride Carbon Dioxide Anion Gap BUN Creatinine Est GFR (Non-Af Amer) Glucose Hemoglobin A1c % Calcium Magnesium 2.0 Total Bilirubin Direct Bilirubin Neonat Total Bilirubin Neonat Direct Bilirubin Neonat Indirect Bili AST ALT Alkaline Phosphatase Total Protein Albumin Triglycerides Cholesterol LDL Cholesterol Direct VLDL Cholesterol HDL Cholesterol TSH 1.07 Free T4 1.42 Free T3 pg/mL 3.90 11/08/18 16:34 Adenosine [Adenocard Inj/Pf 6 mg/2 ml Sdv] 6 mg IV .STK-MED ONE 11/08/18 16:38 Aspirin [Aspirin 81 mg Chewable Tablet] 324 mg PO NOW ONE 11/08/18 16:50 Adenosine [Adenocard Inj/Pf 6 mg/2 ml Sdv] 6 mg IV .STK-MED ONE 11/08/18 16:56 Diltiazem HCl/D5w [Cardizem RTU Inj 125 mg-D5w 125 ml Premix] 125 mg in 125 ml IV CONTINUOUS 11/08/18 17:00 Diltiazem HCl [Cardizem Inj 25 mg/5 ml Vial] 20 mg IV NOW ONE 11/08/18 18:22 Adenosine [Adenocard Inj/Pf 6 mg/2 ml Sdv] 30 mg IV NOW ONE 11/08/18 19:06 Dextrose 50%-Water [Dextrose Inj 50% Syringe (25 gm/50 ml)] 12.5 gm IV PRN PRN Dextrose 50%-Water [Dextrose Inj 50% Syringe (25 gm/50 ml)] 25 gm IV PRN PRN Dextrose [Glutose 40% Gel 15 gm Tube] 15 gm PO PRN PRN Dextrose [Glutose 40% Gel 15 gm Tube] 30 gm PO PRN PRN Glucagon,Human Recombinant [Glucagen Inj 1 mg Vial] 1 mg IM PRN PRN Insulin Lispro [Humalog Insulin 100 Unit/1 ml 3 ml Vial] 0 - 12 unit SUBCUT ACHSP PRN 11/08/18 22:00 Atorvastatin Calcium [Lipitor 10 mg Tablet] 10 mg PO QHS Enoxaparin Sodium [Lovenox Inj 100 mg/1 ml Disp.syrin] 95 mg SUBCUT Q12 Metoprolol Tartrate [Lopressor 25 mg Tablet] 12.5 mg PO Q12 11/09/18 06:00 Lansoprazole [Prevacid 30 mg Odt Tablet] 30 mg PO Q6AM 11/09/18 08:00 Metformin HCl [Glucophage 500 mg Tablet] 1,000 mg PO BIDACBS 11/09/18 10:00 Dutasteride/Tamsulosin HCl [Ashley 0.5-0.4 mg Capsule] 1 cap PO .DAILY Empagliflozin/Linagliptin [Glyxambi 25 mg-5 mg Tablet] 1 tab PO .DAILY Lisinopril [Prinivil 10 mg Tablet] 10 mg PO DAILY Pioglitazone HCl [Actos 15 mg Tablet] 15 mg PO DAILY 11/09/18 14:00 Digoxin Inj [Lanoxin Inj 0.5 mg/2 ml Ampule] 0.125 mg IV NOW ONE CHEST X-ray: Is negative for any acute process. EKG: The initial EKG showed wide complex tachycardia most likely atrial fibrillation with right bundle branch block pattern. Subsequent EKG shows atrial fibrillation with a narrow complex QRS. No. IMPRESSION/RECOMMENDATION: 1. Atrial fibrillation with rapid ventricular response. At present heart rate much improved on no IV Cardizem. Continue the patient on IV Cardizem. Continue the patient on full dose Lovenox. Later would recommend starting the patient on a chronic oral anticoagulation. Discussed Coumadin versus the newer oral anti- coagulants. The patient prefers to be on Eliquis. Will later start the patient Eliquis 5 mg p.o. twice daily. The risk and the stroke prophylaxis benefits of Eliquis have been discussed including complications of bleeding, and that there is no antidote if bleeding should occur, only supportive care to be given if the patient should bleed. The patient understands. Also will give a dose of digoxin. At present continue patient on Cardizem drip. Subsequently we will convert the patient to oral beta-dioni. 2. Hypertension. Blood pressure on the lower side now. Would recommend hydrating the patient also. Next 3. Diabetes mellitus type 2 [id number]: Continue the patient antidiabetic treatment. Next 4. Hyperlipidemia: Check the patient's lipid level and also continue the patient on statin. 5. BENIGN PROSTATIC HYPERTROPHY: Continue patient on his current medication. Medications reviewed. Medications adjusted. Discussed with Dr. Bledsoe the attending physician on the case. Medical decision making is of high complexity. 60 minutes spent on this patient more than 50% of time spent in direct patient care. We will follow with you. Thank you end of dictation
--- NOTE | 2018-11-09 20:28 | PDOC PROGRESS REPORT ---
Subjective Progress Note for:: 11/09/18 Subjective:: Patient reported episode of exertional dyspnea with palpitation earlier today. He remain in atrial fibrillation with RVR. No definite chest pain.He reported chest congestion with thick whitish sputum production. He remain on IV Cardizem infusion drip. He is currently on Lovenox for anticoagulation management. 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 Reason For Visit: ATRIAL FIBRILLATION WITH RVR; DM; HTN; HLD Physical Exam Vital Signs: Temp Pulse Resp BP Pulse Ox 99.2 F 83 20 117/58 L 96 11/09/18 16:59 11/09/18 19:00 11/09/18 16:59 11/09/18 19:00 11/09/18 19:00 Intake & Output 11/08/18 11/09/18 11/10/18 06:59 06:59 06:59 Intake Total 976 1018 Output Total 1025 1100 Balance -49 -82 Weight 90.9 kg General appearance: PRESENT: no acute distress, well-developed, well-nourished Head exam: PRESENT: atraumatic, normocephalic Ear exam: PRESENT: normal external ear exam Mouth exam: PRESENT: moist Respiratory exam: PRESENT: clear to auscultation freda Cardiovascular exam: PRESENT: diastolic murmur, irregular rhythm, +S1, +S2. ABSENT: systolic murmur Vascular exam: PRESENT: normal capillary refill, pallor GI/Abdominal exam: PRESENT: normal bowel sounds, soft. ABSENT: distended, guarding, mass, organolmegaly, rebound, tenderness Musculoskeletal exam: PRESENT: deformity - related to multiple joint involvement with arthritis. Neurological exam: PRESENT: alert, awake, oriented to person, oriented to place, oriented to time, oriented to situation, CN II-XII grossly intact. ABSENT: motor sensory deficit Psychiatric exam: PRESENT: appropriate affect, normal mood. ABSENT: homicidal ideation, suicidal ideation Skin exam: PRESENT: dry, intact, warm. ABSENT: cyanosis, rash Results Laboratory Results: 11/09/18 06:50 11/09/18 06:50 11/09/18 11/09/18 11/09/18 06:50 06:50 06:50 WBC 10.5 RBC 4.73 Hgb 13.3 L Hct 39.4 MCV 83 MCH 28.2 MCHC 33.8 RDW 14.9 H Plt Count 297 Sodium 133.7 L Potassium 4.5 Chloride 102 Carbon Dioxide 25 Anion Gap 7 BUN 19 Creatinine 0.66 Est GFR ( Amer) > 60 Est GFR (Non-Af Amer) > 60 Glucose 121 H Calcium 8.6 Magnesium 2.0 Total Bilirubin 0.8 AST 20 ALT 30 Alkaline Phosphatase 57 Total Protein 5.5 L Albumin 3.1 L Triglycerides 72 Cholesterol 101.83 LDL Cholesterol Direct 74 VLDL Cholesterol 14.0 HDL Cholesterol 30 L TSH Free T4 Free T3 pg/mL Urine Color Urine Appearance Urine pH Ur Specific [place] Urine Protein Urine Glucose (UA) Urine Ketones Urine Blood Urine Nitrite Ur Leukocyte Esterase Urine WBC (Auto) Urine RBC (Auto) 11/09/18 11/09/18 06:50 08:26 WBC RBC Hgb Hct MCV MCH MCHC RDW Plt Count Sodium Potassium Chloride Carbon Dioxide Anion Gap BUN Creatinine Est GFR ( Amer) Est GFR (Non-Af Amer) Glucose Calcium Magnesium Total Bilirubin AST ALT Alkaline Phosphatase Total Protein Albumin Triglycerides Cholesterol LDL Cholesterol Direct VLDL Cholesterol HDL Cholesterol TSH 1.07 Free T4 1.42 Free T3 pg/mL 3.90 Urine Color YELLOW Urine Appearance CLEAR Urine pH 6.0 Ur Specific [place] 1.022 Urine Protein NEGATIVE Urine Glucose (UA) >=500 H Urine Ketones 20 H Urine Blood NEGATIVE Urine Nitrite NEGATIVE Ur Leukocyte Esterase NEGATIVE Urine WBC (Auto) 0 Urine RBC (Auto) 1 11/08/18 11/08/18 11/08/18 16:10 16:10 18:45 Creatine Kinase 70 CK-MB (CK-2) 1.42 Troponin I 0.032 0.033 Impressions: Chest X-Ray 11/08/18 16:38 IMPRESSION: CARDIAC ENLARGEMENT. VASCULAR CONGESTION. Assessment & Plan - Diagnosis (1) Atrial fibrillation with rapid ventricular response Is this a current diagnosis for this admission?: Yes (2) Type 2 diabetes mellitus Qualifiers: Diabetes mellitus fdc insulin use: without fdc use Diabetes mellitus complication status: with unspecified complications Qualified Code(s): E11.8 - Type 2 diabetes mellitus with unspecified complications Is this a current diagnosis for this admission?: Yes (3) Hypertension Qualifiers: Hypertension type: essential hypertension Qualified Code(s): I10 - Essenti al (primary) hypertension Is this a current diagnosis for this admission?: Yes (4) HLD (hyperlipidemia) Qualifiers: Hyperlipidemia type: pure hypercholesterolemia Qualified Code(s): E78.00 - Pure hypercholesterolemia, unspecified; E78.0 - Pure hypercholesterolemia Is this a current diagnosis for this admission?: Yes (6) Osteoarthritis involving multiple joints on both sides of body Is this a current diagnosis for this admission?: Yes (7) Cervical radiculopathy due to degenerative joint disease of spine Is this a current diagnosis for this admission?: Yes (8) Sleep disorder Is this a current diagnosis for this admission?: Yes - Time Time Spent with patient: 25-34 minutes Medications reviewed and adjusted accordingly: Yes Anticipated discharge: Home Within: Other - Inpatient Certification Based on my medical assessment, after consideration of the patient's comorbidities, presenting symptoms, or acuity I expect that the services needed warrant INPATIENT care.: Yes I certify that my determination is in accordance with my understanding of Medicare's requirements for reasonable and necessary INPATIENT services [42 CFR 412.3e].: Yes Medical Necessity: Need Close Monitoring Due to Risk of Patient Decompensation, Need For IV Fluids, Need For Continuous Telemetry Monitoring, Risk of Complication if Not Cared For in Hospital Post Hospital Care: D/C Poke In Documentation - Plan Summary Plan Summary: Continue current medication management. Patient will get Digoxin bolus 0.125mg and start on 0.25mg po daily. Obtain Cb with diff and BMP in am.
[2018-11-09] MEDS: ATORVASTATIN CALCIUM 10 MG TABLET PO SCH (22:20)
[2018-11-10] MEDS: DILTIAZEM HCL/D5W 125 MG/125 ML RTUINJ IV PRN ×4 (03:14→19:19)
[2018-11-10] MEDS: LANSOPRAZOLE 30 MG TAB.RAP.DR PO SCH (06:04)
--- NOTE | 2018-11-10 07:51 | EKG REPORT ---
SEVERITY:- ABNORMAL ECG - ATRIAL FIBRILLATION, V-RATE 68-96 MULTIFORM VENTRICULAR PREMATURE COMPLEXES : Confirmed by: Reymundo Mercedes MD 10-Nov-2018 07:50:21
[2018-11-10] MEDS: METFORMIN HCL 500 MG TABLET PO SCH ×2 (08:29→18:15)
[2018-11-10] MEDS: LISINOPRIL 5 MG TABLET PO SCH (11:03)
[2018-11-10] MEDS: METOPROLOL TARTRATE 25 MG TABLET PO SCH (11:04)
[2018-11-10] MEDS: PIOGLITAZONE HCL 15 MG TABLET PO SCH (11:09)
[2018-11-10] MEDS: DIGOXIN 0.25 MG TABLET PO SCH (11:09)
[2018-11-10] MEDS: ENOXAPARIN SODIUM INJ 100 MG/1 ML DISP.SYRIN SUBCUT SCH (11:11)
[2018-11-10] MEDS ORDERED: DIGOXIN INJ 0.5 MG/2 ML AMPULE IV ONE (13:45)
--- NOTE | 2018-11-10 19:15 | PDOC PROGRESS REPORT ---
Subjective Progress Note for:: 11/10/18 Subjective:: Patient reported persistence of exertional palpitation and difficulty with breathing. Currently on IV Cardizem infusion with Digoxin and Metoprolol regimen for his atrial fibrillation with RVR rate control. No definite chest pain. No fever or chills. No nausea, vomiting, reflux feeling, or abdominal pain. Reason For Visit: ATRIAL FIBRILLATION WITH RVR; DM; HTN; HLD Physical Exam Vital Signs: Temp Pulse Resp BP Pulse Ox 98.7 F 92 20 116/62 99 11/10/18 15:59 11/10/18 15:59 11/10/18 15:59 11/10/18 15:59 11/10/18 15:59 Intake & Output 11/09/18 11/10/18 11/11/18 06:59 06:59 06:59 Intake Total 976 1583 1731 Output Total 1025 2275 225 Balance -49 -692 1506 Weight 90.9 kg 90.8 kg Physical Exam: General appearance: PRESENT: no acute distress, well-developed, well-nourished Head exam: PRESENT: atraumatic, normocephalic Ear exam: PRESENT: normal external ear exam Mouth exam: PRESENT: moist Respiratory exam: PRESENT: clear to auscultation freda Cardiovascular exam: PRESENT: diastolic murmur, irregular rhythm, +S1, +S2. ABSENT: systolic murmur Vascular exam: PRESENT: normal capillary refill, pallor GI/Abdominal exam: PRESENT: normal bowel sounds, soft. ABSENT: distended, guarding, mass, organomegaly, rebound, tenderness Musculoskeletal exam: PRESENT: deformity - related to multiple joint involvement with arthritis. Neurological exam: PRESENT: alert, awake, oriented to person, oriented to place, oriented to time, oriented to situation, CN II-XII grossly intact. ABSENT: motor sensory deficit Psychiatric exam: PRESENT: appropriate affect, normal mood. ABSENT: homicidal ideation, suicidal ideation Skin exam: PRESENT: dry, intact, warm. ABSENT: cyanosis, rash Results Laboratory Results: 11/09/18 06:50 11/09/18 06:50 11/08/18 11/08/18 11/08/18 16:10 16:10 18:45 Creatine Kinase 70 CK-MB (CK-2) 1.42 Troponin I 0.032 0.033 Impressions: Chest X-Ray 11/08/18 16:38 IMPRESSION: CARDIAC ENLARGEMENT. VASCULAR CONGESTION. Assessment & Plan - Diagnosis (1) Atrial fibrillation with rapid ventricular response Is this a current diagnosis for this admission?: Yes (2) Type 2 diabetes mellitus Qualifiers: Diabetes mellitus intermediate insulin use: without intermediate use Diabetes mellitus complication status: with unspecified complications Qualified Code(s): E11.8 - Type 2 diabetes mellitus with unspecified complications Is this a current diagnosis for this admission?: Yes (3) Hypertension Qualifiers: Hypertension type: essential hypertension Qualified Code(s): I10 - Essential (primary) hypertension Is this a current diagnosis for this admission?: Yes (4) HLD (hyperlipidemia) Qualifiers: Hyperlipidemia type: pure hypercholesterolemia Qualified Code(s): E78.00 - Pure hypercholesterolemia, unspecified; E78.0 - Pure hypercholesterolemia Is this a current diagnosis for this admission?: Yes (6) Osteoarthritis involving multiple joints on both sides of body Is this a current diagnosis for this admission?: Yes (7) Cervical radiculopathy due to degenerative joint disease of spine Is this a current diagnosis for this admission?: Yes (8) Sleep disorder Is this a current diagnosis for this admission?: Yes - Time Time Spent with patient: 25-34 minutes Medications reviewed and adjusted accordingly: Yes Anticipated discharge: Home Within: Other - Inpatient Certification Based on my medical assessment, after consideration of the patient's comorbidities, presenting symptoms, or acuity I expect that the services needed warrant INPATIENT care.: Yes I certify that my determination is in accordance with my understanding of Medicare's requirements for reasonable and necessary INPATIENT services [42 CFR 412.3e].: Yes Medical Necessity: Need Close Monitoring Due to Risk of Patient Decompensation, Need For IV Fluids, Need For Continuous Telemetry Monitoring, Risk of Complication if Not Cared For in Hospital 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 Increase Metoprolol to 25 mg po bid. His Lisinopril have been decreased to 5 mg po daily to allow for his rate control medication dosage adjustment. Obtain CBC, BMP and Mag level in am.
[2018-11-10] MEDS: APIXABAN 5 MG TABLET PO SCH (20:53)
[2018-11-10] MEDS: ATORVASTATIN CALCIUM 10 MG TABLET PO SCH (21:06)
--- NOTE | 2018-11-10 21:27 | Progress Note ---
Provider Note Provider Note: CARDIOLOGY PROGRESS NOTES by Dr. Paula Barber on 11/10/2018. SUBJECTIVE: The patient continues to be in atrial fibrillation. Although his rate is in the 90s at times it goes up to the 120s. The patient does feel palpitations. But denies any chest pain discomfort. There is no shortness of breath. There is no PND orthopnea. There is no bleeding on full dose Lovenox. The patient has no TIA CVA symptoms. There is no leg edema. There is no anginal symptoms. There is no ventricular arrhythmia seen on the monitor, except occasionally the patient has aberrancy of the right bundle branch block pattern with atrial fibrillation. On examination the patient is well-built and well-nourished. He is well- groomed. He is in no acute distress. Selected Entries 11/10/18 11:13 Temperature 97.6 F Temperature Oral Source Pulse Rate 98 Respiratory 20 Rate Blood Pressure 125/78 Blood Pressure 93 Mean BP Location Right Arm BP Position Sitting O2 Sat by Pulse 95 Oximetry Oxygen Delivery Room Air Method HEAD: Head is atraumatic normocephalic. EYES: Pupils are equal round regular react to light accommodation. Extra ocular movements are normal there is no conjunctival pallor. There is no scleral icterus. Ears: Tympanic membranes are intact. External auditory canals are clear. NOSE: There is no deviated nasal septum. There is no inflammation of the nasal mucous membrane. MOUTH: Mucous membranes of mouth are moist tongue is moist there is no ulcers there is no bleeding from the gums. THROAT: There is no redness of the oropharynx there is no exudates. SKIN: There is no petechia or ecchymosis. There is no skin rash or skin lesions. NECK: Is supple. There is no JVD. Carotids equal there is no bruit. There is no lymphadenopathy. There is no goiter. There is no accessory muscle respiration use. Trachea central. Lungs: Clear to auscultation percussion. There is no rhonchi rales or wheezing. There is no chest wall tenderness on palpation. HEART: S1-S2 is heard S1 is of variable intensity. There is no S3 gallop. There is no S4 gallop. There is systolic murmur left sternal border and apex. There is no rub. ABDOMEN: Soft. Nontender. Bowel sounds are well heard. There is no hepatosplenic megaly. There is no tender areas. There is no rebound guarding or rigidity. EXTREMITIES: Femorals are well felt there is no femoral bruits leg pulses well felt. There is no pedal edema. There is no leg edema. There is no cellulitis or DVT. There is no calf tenderness. THERE is no cyanosis or clubbing. Capillary refill is normal. FLEXIBLE NANNY: Patient is conscious awake alert oriented x3 with no focal deficits. PSYCHIATRIC: The patient judgment insight are intact his affect is normal. IMPRESSION/RECOMMENDATION: 1. Atrial fibrillation with rapid ventricular response. At present heart rate much improved on no IV Cardizem. Continue the patient on IV Cardizem. Continue the patient on full dose Lovenox. Later would recommend starting the patient on a chronic oral anticoagulation. Discussed Coumadin versus the newer oral anti- coagulants. The patient prefers to be on Eliquis. Will later start the patient Eliquis 5 mg p.o. twice daily. Will later start the Eliquis once the patient's heart rate is controlled, and stop the full dose Lovenox. The risks and the stroke prophylaxis benefits of Eliquis have been discussed including complications of bleeding, and that there is no antidote if bleeding should occur, only supportive care to be given if the patient should bleed. The patient understands. Also will give a dose of digoxin. At present continue patient on Cardizem drip. Subsequently we will convert the patient to oral beta-dioni. 2. Hypertension. Blood pressure on the lower side now. Would recommend hydrating the patient also. 3. Diabetes mellitus type 2 [id number]: Continue the patient antidiabetic treatment. 4. Hyperlipidemia: the patient's lipid level shows a low HDL, but good LDL and triglyceride levels. His liver function tests are normal. And also continue the patient on statin. 5. BENIGN PROSTATIC HYPERTROPHY: Continue patient on his current medication. Note medications reviewed, and medications adjusted. Management plan discussed with Dr. Bledsoe the attending physician. Medical decision making is of high complexity. 40 minutes spent on this patient with more than 50% of time spent in direct patient care.
[2018-11-10] MEDS: ACETAMINOPHEN 325 MG TABLET PO PRN (21:53)
[2018-11-10] MEDS ORDERED: METOPROLOL TARTRATE 25 MG TABLET PO SCH (22:00)
[2018-11-11] MEDS: DILTIAZEM HCL/D5W 125 MG/125 ML RTUINJ IV PRN ×3 (04:15→21:56)
[2018-11-11] MEDS: LANSOPRAZOLE 30 MG TAB.RAP.DR PO SCH (05:20)
[2018-11-11 06:13] LABS: ANION GAP 9 (5-19); BLOOD UREA NITROGEN 17 mg/dL (7-20); CALCIUM 8.8 mg/dL (8.4-10.2); CARBON DIOXIDE 20 mmol/L (22-30); CHLORIDE 103 mmol/L (98-107); GLUCOSE 140 mg/dL (75-110); POTASSIUM 4.4 mmol/L (3.6-5.0); SODIUM 132.2 mmol/L (137-145)
[2018-11-11] MEDS: METFORMIN HCL 500 MG TABLET PO SCH ×2 (08:49→16:56)
[2018-11-11] MEDS ORDERED: METOPROLOL TARTRATE 25 MG TABLET PO SCH (09:45)
[2018-11-11] MEDS ORDERED: METOPROLOL TARTRATE 50 MG TABLET PO SCH (10:00)
[2018-11-11] MEDS: DIGOXIN 0.25 MG TABLET PO SCH (10:02)
[2018-11-11] MEDS: APIXABAN 5 MG TABLET PO SCH ×2 (10:02→18:08)
[2018-11-11] MEDS: PIOGLITAZONE HCL 15 MG TABLET PO SCH (10:02)
[2018-11-11] MEDS: LISINOPRIL 5 MG TABLET PO SCH (10:03)
--- NOTE | 2018-11-11 13:15 | EKG REPORT ---
SEVERITY:- ABNORMAL ECG - ATRIAL FIBRILLATION, V-RATE 66-104 MULTIFORM VENTRICULAR PREMATURE COMPLEXES LEFT AXIS DEVIATION LOW VOLTAGE IN FRONTAL LEADS : Confirmed by: Reymundo Mercedes MD 11-Nov-2018 13:14:07
--- NOTE | 2018-11-11 15:57 | PDOC PROGRESS REPORT ---
Subjective Progress Note for:: 11/11/18 Subjective:: Patient reported some improvement in his SOB with exertion. Heart rate on current dosing of rate control medication has been in reasonable range 80-90 / minute. No nausea, vomiting, or abdominal pain. No fever or chills. No dizziness or headache. Reason For Visit: ATRIAL FIBRILLATION WITH RVR; DM; HTN; HLD Physical Exam Vital Signs: Temp Pulse Resp BP Pulse Ox 97.7 F 101 H 18 107/69 96 11/11/18 11:44 11/11/18 13:00 11/11/18 11:44 11/11/18 13:00 11/11/18 11:44 Intake & Output 11/10/18 11/11/18 11/12/18 06:59 06:59 06:59 Intake Total 1583 2331 478 Output Total 2275 1150 250 Balance -692 1181 228 Weight 90.8 kg 86.8 kg General appearance: PRESENT: no acute distress, well-developed, well-nourished Head exam: PRESENT: atraumatic, normocephalic Eye exam: PRESENT: conjunctiva pink, EOMI, PERRLA. ABSENT: scleral icterus Ear exam: PRESENT: normal external ear exam Mouth exam: PRESENT: moist Respiratory exam: PRESENT: clear to auscultation freda Cardiovascular exam: PRESENT: irregular rhythm, +S1, +S2. ABSENT: diastolic murmur, systolic murmur Vascular exam: ABSENT: pallor GI/Abdominal exam: PRESENT: normal bowel sounds, soft. ABSENT: distended, guarding, mass, organolmegaly, rebound, tenderness Extremities exam: ABSENT: pedal edema Musculoskeletal exam: PRESENT: normal inspection Neurological exam: PRESENT: alert, awake, oriented to person, oriented to place, oriented to time, oriented to situation, CN II-XII grossly intact. ABSENT: motor sensory deficit Psychiatric exam: PRESENT: appropriate affect, normal mood. ABSENT: homicidal ideation, suicidal ideation Skin exam: PRESENT: dry, intact, warm. ABSENT: cyanosis, rash Results Laboratory Results: 11/09/18 06:50 11/11/18 05:28 11/11/18 05:28 Sodium 132.2 L Potassium 4.4 Chloride 103 Carbon Dioxide 20 L Anion Gap 9 BUN 17 Creatinine 0.61 Est GFR ( Amer) > 60 Est GFR (Non-Af Amer) > 60 Glucose 140 H Calcium 8.8 Magnesium 2.0 11/08/18 11/08/18 11/08/18 16:10 16:10 18:45 Creatine Kinase 70 CK-MB (CK-2) 1.42 Troponin I 0.032 0.033 Impressions: Chest X-Ray 11/08/18 16:38 IMPRESSION: CARDIAC ENLARGEMENT. VASCULAR CONGESTION. Assessment & Plan - Diagnosis (1) Atrial fibrillation with rapid ventricular response Is this a current diagnosis for this admission?: Yes (2) Type 2 diabetes mellitus Qualifiers: Diabetes mellitus skilled nursing insulin use: without skilled nursing use Diabetes mellitus complication status: with unspecified complications Qualified Code(s): E11.8 - Type 2 diabetes mellitus with unspecified complications Is this a current diagnosis for this admission?: Yes (3) Hypertension Qualifiers: Hypertension type: essential hypertension Qualified Code(s): I10 - Essential (primary) hypertension Is this a current diagnosis for this admission?: Yes (4) HLD (hyperlipidemia) Qualifiers: Hyperlipidemia type: pure hypercholesterolemia Qualified Code(s): E78.00 - Pure hypercholesterolemia, unspecified; E78.0 - Pure hypercholesterolemia Is this a current diagnosis for this admission?: Yes (6) Osteoarthritis involving multiple joints on both sides of body Is this a current diagnosis for this admission?: Yes (7) Cervical radiculopathy due to degenerative joint disease of spine Is this a current diagnosis for this admission?: Yes (8) Sleep disorder Is this a current diagnosis for this admission?: Yes - Time Time Spent with patient: 25-34 minutes Medications reviewed and adjusted accordingly: Yes Anticipated discharge: Home Within: Other - Inpatient Certification Based on my medical assessment, after consideration of the patient's comorb idities, presenting symptoms, or acuity I expect that the services needed warrant INPATIENT care.: Yes I certify that my determination is in accordance with my understanding of Medicare's requirements for reasonable and necessary INPATIENT services [42 CFR 412.3e].: Yes Medical Necessity: Need Close Monitoring Due to Risk of Patient Decompensation, Need For IV Fluids, Need For Continuous Telemetry Monitoring, Risk of Complication if Not Cared For in Hospital Post Hospital Care: D/C 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 Continue on all other current medication management.
[2018-11-11] MEDS: ACETAMINOPHEN 325 MG TABLET PO PRN (18:08)
--- NOTE | 2018-11-11 20:39 | Progress Note ---
Provider Note Provider Note: CARDIOLOGY PROGRESS NOTES by Dr. Paula Barber on 11/11/2018. SUBJECTIVE: The patient continues to be in atrial fibrillation. His heart rate is slightly better. But still the patient is on 15 mics milligrams per hour of Cardizem infusion. He is on metoprolol at 25 mg p.o. twice daily. Will increase this. The patient denies any chest pain discomfort. There is no shortness of breath, no PND orthopnea. There is no leg edema. The patient does feel palpitations, but no dizziness or syncope or near syncope. There is no bleeding on full dose Lovenox. There is no TIA CVA symptoms. On examination the patient is well-built and well-nourished. He is well- groomed. He is in no acute distress. Selected Entries 11/11/18 11:44 Temperature 97.7 F Temperature Oral Source Pulse Rate 94 Respiratory 18 Rate Blood Pressure 124/67 Blood Pressure 86 Mean BP Location Left Arm BP Position Supine O2 Sat by Pulse 96 Oximetry Oxygen Delivery Room Air Method HEAD: Head is atraumatic normocephalic. EYES: Pupils are equal round regular react to light accommodation. Extra ocular movements are normal there is no conjunctival pallor. There is no scleral icterus. Ears: Tympanic membranes are intact. External auditory canals are clear. NOSE: There is no deviated nasal septum. There is no inflammation of the nasal mucous membrane. MOUTH: Mucous membranes of mouth are moist tongue is moist there is no ulcers there is no bleeding from the gums. THROAT: There is no redness of the oropharynx there is no exudates. SKIN: There is no petechia or ecchymosis. There is no skin rash or skin lesions. NECK: Is supple. There is no JVD. Carotids equal there is no bruit. There is no lymphadenopathy. There is no goiter. There is no accessory muscle respiration use. Trachea central.Lungs: Clear to auscultation percussion. There is no rhonchi rales or wheezing. There is no chest wall tenderness on palpation. HEART: S1-S2 is heard S1 is of variable intensity. There is no S3 gallop. There is no S4 gallop. There is systolic murmur left sternal border and apex. There is no rub. ABDOMEN: Soft. Nontender. Bowel sounds are well heard. There is no hepatosplenic megaly. There is no tender areas. There is no rebound guarding or rigidity. EXTREMITIES: Femorals are well felt there is no femoral bruits leg pulses well felt. There is no pedal edema. There is no leg edema. There is no cellulitis or DVT. There is no calf tenderness. THERE is no cyanosis or clubbing. Capillary refill is normal. 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 PSYCHIATRIC: The patient judgment insight are intact his affect is normal. 11/10/18 11/11/18 06:17 05:28 Sodium 132.2 L Potassium 4.4 Chloride 103 Carbon Dioxide 20 L Anion Gap 9 BUN 17 Creatinine 0.61 Est GFR (Non-Af Amer) > 60 Glucose 140 H Calcium 8.8 Magnesium 2.0 Digoxin 0.99 IMPRESSION/RECOMMENDATION: 1. Atrial fibrillation with rapid ventricular response. At present heart rate much improved on no IV Cardizem. Continue the patient on IV Cardizem. Continue the patient on full dose Lovenox. Later would recommend starting the patient on a chronic oral anticoagulation. Later we will start the patient on Eliquis, once her heart rate is controlled. Will increase the patient's beta-dioni to 50 mg p.o. now and later if the heart rate still up we will increase to 200 mg p.o. every 12 hours. Accordingly we will decrease the patient's Cardizem drip to be able to take the patient off the Cardizem drip fully. 2. Hypertension. Blood pressure on the lower side now. Would recommend hydrating the patient also. 3. Diabetes mellitus type 2 [id number]: Continue the patient antidiabetic treatment. 4. Hyperlipidemia:Continue the patient on statin. 5. BENIGN PROSTATIC HYPERTROPHY: Continue patient on his current medication. Medications reviewed, medication adjusted. Management plan discussed with Dr. Bledsoe, the attending physician. Medical decision making is still of high complexity. 40 minutes spent on this patient with more than 50% of time spent in direct patient care. We will follow with you.
[2018-11-11] MEDS: ATORVASTATIN CALCIUM 10 MG TABLET PO SCH (21:57)
[2018-11-11] MEDS: METOPROLOL TARTRATE 50 MG TABLET PO SCH (21:57)
[2018-11-11] MEDS ORDERED: DILTIAZEM HCL 180 MG CAPSULE.CR PO SCH (22:00)
[2018-11-12] MEDS: ACETAMINOPHEN 325 MG TABLET PO PRN ×2 (05:41→18:28)
[2018-11-12] MEDS: LANSOPRAZOLE 30 MG TAB.RAP.DR PO SCH (05:41)
[2018-11-12] MEDS: METFORMIN HCL 500 MG TABLET PO SCH ×2 (08:32→16:23)
[2018-11-12] MEDS: METOPROLOL TARTRATE 50 MG TABLET PO SCH ×2 (09:42→21:59)
[2018-11-12] MEDS: PIOGLITAZONE HCL 15 MG TABLET PO SCH (09:43)
[2018-11-12] MEDS: LISINOPRIL 5 MG TABLET PO SCH (09:43)
[2018-11-12] MEDS: DIGOXIN 0.25 MG TABLET PO SCH (09:43)
[2018-11-12] MEDS: APIXABAN 5 MG TABLET PO SCH ×2 (09:44→18:29)
[2018-11-12] MEDS ORDERED: DIGOXIN INJ 0.5 MG/2 ML AMPULE IV ONE (10:23)
[2018-11-12] MEDS ORDERED: NORMAL SALINE 1000 ML 500 ML IV ONE (10:23)
[2018-11-12] MEDS: DILTIAZEM HCL/D5W 125 MG/125 ML RTUINJ IV PRN (15:10)
--- NOTE | 2018-11-12 20:18 | Progress Note ---
Provider Note Provider Note: CARDIOLOGY PROGRESS NOTES by Dr. Mitchell has been on 11/12/2018. SUBJECTIVE: The patient continues to be in atrial fibrillation. Earlier her heart rate was in the 120s. The patient complains of being thirsty, and his mucous membranes of the mouth and tongue are very dry. He denies any chest pain or discomfort. There is no shortness of breath. There is no PND orthopnea. There is no TIA CVA symptoms. At times he has runs of atrial fibrillation with right bundle branch block pattern. There is no bleeding on full dose Lovenox. Physical EXAMINATION: The patient is well-built and well-nourished. He is in no acute distress. Selected Entries 11/12/18 15:35 Temperature 97.6 F Temperature Oral Source Pulse Rate 99 Respiratory 20 Rate BP Location Left Arm BP Position Sitting O2 Sat by Pulse 99 Oximetry Oxygen Delivery Room Air Method 11/12/18 11/12/18 06:13 11:38 POC Glucose 128 H 121 H HEAD: Head is atraumatic normocephalic. EYES: Pupils are equal round regular react to light accommodation. Extra ocular movements are normal there is no conjunctival pallor. There is no scleral icterus. Ears: Tympanic membranes are intact. External auditory canals are clear. NOSE: There is no deviated nasal septum. There is no inflammation of the nasal mucous membrane. MOUTH: Mucous membranes of mouth are moist tongue very dry. There is no ulcers there is no bleeding from the gums. THROAT: There is no redness of the oropharynx there is no exudates. SKIN: There is no petechia or ecchymosis. There is no skin rash or skin lesions. NECK: Is supple. There is no JVD. Carotids equal there is no bruit. There is no lymphadenopathy. There is no goiter. There is no accessory muscle respiration use. Trachea central.Lungs: Clear to auscultation percussion. There is no rhonchi rales or wheezing. There is no chest wall tenderness on palpation. HEART: S1-S2 is heard S1 is of variable intensity. There is no S3 gallop. There is no S4 gallop. There is systolic murmur left sternal border and apex. There is no rub. ABDOMEN: Soft. Nontender. Bowel sounds are well heard. There is no hepatosplenic megaly. There is no tender areas. There is no rebound guarding or rigidity. EXTREMITIES: Femorals are well felt there is no femoral bruits leg pulses well felt. There is no pedal edema. There is no leg edema. There is no cellulitis or DVT. There is no calf tenderness. THERE is no cyanosis or clubbing. Capillary refill is normal. 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 PSYCHIATRIC: The patient judgment insight are intact his affect is normal. IMPRESSION/RECOMMENDATION: 1. Atrial fibrillation with rapid ventricular response. Still the patient has episodes where his heart rate goes into the 120s. We will continue the patient on Cardizem drip at the lower dose. We will give an extra dose of digoxin. We will check a dig level in the morning. Note his Lopressor has been increased to 100 mg p.o. every 12 hours. Continue the patient on Lovenox at 1 mg/kg subcutan eously every 12 hours for now. Will later start the patient on Eliquis. 2. Hypertension. Blood pressure on the lower side earlier, but patient tolerating beta-dioni.. Would recommend hydrating the patient also. 3. Diabetes mellitus type 2 [id number]: Continue the patient antidiabetic treatment. 4. Hyperlipidemia:Continue the patient on statin. 5. DEHYDRATION: We will give the patient a fluid bolus of normal saline 500 mL. The patient encouraged to drink plenty of fluids. 6.BENIGN PROSTATIC HYPERTROPHY: Continue patient on his current medication. Medications reviewed. Medications adjusted. Medical decision making is still of high complexity. 40 minutes spent on this patient, with more than 50% of time spent in direct patient care.
--- NOTE | 2018-11-12 21:11 | PDOC PROGRESS REPORT ---
Subjective Progress Note for:: 11/12/18 Subjective:: Patient was seen by the bedside, he complained of pain in his left foot, he was admitted for the management of atrial fibrillation with rapid ventricular response on Cardizem infusion Reason For Visit: ATRIAL FIBRILLATION WITH RVR; DM; HTN; HLD Physical Exam Vital Signs: Temp Pulse Resp BP Pulse Ox 98.2 F 106 H 20 104/46 L 97 11/12/18 19:48 11/12/18 19:48 11/12/18 19:48 11/12/18 19:48 11/12/18 19:48 Intake & Output 11/11/18 11/12/18 11/13/18 06:59 06:59 06:59 Intake Total 2331 839 616 Output Total 1150 1155 600 Balance 1181 -316 16 Weight 86.8 kg 87.1 kg General appearance: PRESENT: no acute distress Eye exam: PRESENT: PERRLA Respiratory exam: PRESENT: clear to auscultation freda Cardiovascular exam: PRESENT: irregular rhythm, +S1, +S2 GI/Abdominal exam: PRESENT: soft Neurological exam: PRESENT: alert Results Laboratory Results: 11/09/18 06:50 11/11/18 05:28 11/08/18 11/08/18 11/08/18 16:10 16:10 18:45 Creatine Kinase 70 CK-MB (CK-2) 1.42 Troponin I 0.032 0.033 Impressions: Chest X-Ray 11/08/18 16:38 IMPRESSION: CARDIAC ENLARGEMENT. VASCULAR CONGESTION. Assessment & Plan - Diagnosis (1) Atrial fibrillation with rapid ventricular response Is this a current diagnosis for this admission?: Yes (2) BPH NOS w ur obs/LUTS Is this a current diagnosis for this admission?: Yes (3) Cervical radiculopathy due to degenerative joint disease of spine Is this a current diagnosis for this admission?: Yes (4) HLD (hyperlipidemia) Qualifiers: Hyperlipidemia type: pure hypercholesterolemia Qualified Code(s): E78.00 - Pure hypercholesterolemia, unspecified; E78.0 - Pure hypercholesterolemia Is this a current diagnosis for this admission?: Yes (5) Osteoarthritis involving multiple joints on both sides of body Is this a current diagnosis for this admission?: Yes (6) Sleep disorder Is this a current diagnosis for this admission?: Yes (7) Hypertension Qualifiers: Hypertension type: essential hypertension Qualified Code(s): I10 - Essential (primary) hypertension Is this a current diagnosis for this admission?: Yes - Plan Summary Plan Summary: Continue present treatment
[2018-11-12] MEDS: ATORVASTATIN CALCIUM 10 MG TABLET PO SCH (22:00)
[2018-11-13] MEDS: DILTIAZEM HCL/D5W 125 MG/125 ML RTUINJ IV PRN (02:20)
[2018-11-13] MEDS: LANSOPRAZOLE 30 MG TAB.RAP.DR PO SCH (06:03)
[2018-11-13 06:16] LABS: ABSOLUTE BASOPHILS # (AUTO) 0.1 10^3/uL (0.0-0.2); ABSOLUTE EOSINOPHILS # (AUTO) 0.2 10^3/uL (0.0-0.6); ABSOLUTE LYMPHOCYTES (AUTO) 1.5 10^3/uL (0.5-4.7); ABSOLUTE MONOCYTES (AUTO) 0.7 10^3/uL (0.1-1.4); ABSOLUTE NEUT (AUTO) 6.6 10^3/uL (1.7-8.2); BASOPHILS % (AUTO) 0.8 % (0-2); EOSINOPHILS % (AUTO) 2.4 % (0-6); HEMATOCRIT 44.4 % (37.9-51.0); LYMPHOCYTES % (AUTO) 16.3 % (13-45); MEAN CORPUSCULAR HEMOGLOBIN 28.1 pg (27.0-33.4); MEAN CORPUSCULAR HGB CONC 33.8 g/dL (32.0-36.0); MEAN CORPUSCULAR VOLUME 83 fl (80-97); MONOCYTES % (AUTO) 8.1 % (3-13); PLATELET COUNT 313 10^3/uL (150-450); RED BLOOD COUNT 5.34 10^6/uL (4.35-5.55); SEGMENTED NEUTROPHILS % (AUTO) 72.4 % (42-78); TOTAL CELLS COUNTED % (AUTO) 100 %; WHITE BLOOD COUNT 9.1 10^3/uL (4.0-10.5)
[2018-11-13 06:46] LABS: ALANINE AMINOTRANSFERASE 28 U/L (21-72); ALBUMIN 3.2 g/dL (3.5-5.0); ALKALINE PHOSPHATASE 65 U/L (38-126); ANION GAP 9 (5-19); ASPARTATE AMINO TRANSFERASE 21 U/L (17-59); BILIRUBIN,DIRECT 0.3 mg/dL (0.0-0.4); BILIRUBIN,TOTAL 0.5 mg/dL (0.2-1.3); BLOOD UREA NITROGEN 19 mg/dL (7-20); CARBON DIOXIDE 21 mmol/L (22-30); CHLORIDE 103 mmol/L (98-107); DIGOXIN 0.98 ng/mL (0.8-2.0); GLUCOSE 129 mg/dL (75-110); POTASSIUM 4.5 mmol/L (3.6-5.0); SODIUM 133.3 mmol/L (137-145); TOTAL PROTEIN 5.9 g/dL (6.3-8.2)
[2018-11-13] MEDS: METFORMIN HCL 500 MG TABLET PO SCH ×2 (08:12→17:22)
[2018-11-13] MEDS ORDERED: DIGOXIN INJ 0.5 MG/2 ML AMPULE IV ONE (08:21)
[2018-11-13] MEDS: LISINOPRIL 5 MG TABLET PO SCH (10:02)
[2018-11-13] MEDS: APIXABAN 5 MG TABLET PO SCH ×2 (10:03→17:22)
[2018-11-13] MEDS: PIOGLITAZONE HCL 15 MG TABLET PO SCH (10:03)
[2018-11-13] MEDS: METOPROLOL TARTRATE 50 MG TABLET PO SCH ×2 (10:03→22:46)
[2018-11-13] MEDS: DIGOXIN 0.25 MG TABLET PO SCH (10:04)
[2018-11-13] MEDS: ACETAMINOPHEN 325 MG TABLET PO PRN (13:32)
--- NOTE | 2018-11-13 16:01 | Progress Note ---
Provider Note Provider Note: CARDIOLOGY PROGRESS NOTES by Dr. Paula Barber on 11/13/2018. SUBJECTIVE: The patient is converted to sinus rhythm. He denies any chest pain or discomfort. There is no PND orthopnea. There is no TIA CVA symptoms. Note that the patient on the has been started on Eliquis with the Lovenox been stopped. There is no bleeding on Eliquis. There is no TIA or CVA symptoms. There is no ventricular arrhythmias seen on the monitor. PHYSICAL EXAMINATION: The patient is well-built and well-nourished. He is in no acute distress. Selected Entries 11/13/18 11/13/18 11/13/18 07:59 08:00 09:00 Temperature 98.4 F Temperature Oral Source Pulse Rate 92 94 Heart Rate ( 79 Monitors) Respiratory 16 Rate Blood Pressure 96/67 L 112/67 Blood Pressure 76 Mean O2 Sat by Pulse 100 Oximetry Oxygen Delivery Room Air Method HEAD: Head is atraumatic normocephalic. EYES: Pupils are equal round regular react to light accommodation. Extra ocular movements are normal there is no conjunctival pallor. There is no scleral icterus. Ears: Tympanic membranes are intact. External auditory canals are clear. NOSE: There is no deviated nasal septum. There is no inflammation of the nasal mucous membrane. MOUTH: Mucous membranes of mouth are moist tongue is moist there is no ulcers there is no bleeding from the gums. THROAT: There is no redness of the oropharynx there is no exudates. SKIN: There is no petechia or ecchymosis. There is no skin rash or skin lesions. NECK: Is supple. There is no JVD. Carotids equal there is no bruit. There is no lymphadenopathy. There is no goiter. There is no accessory muscle respiration use. Trachea central. Lungs: Clear to auscultation percussion. There is no rhonchi rales or wheezing. There is no chest wall tenderness on palpation. HEART: S1-S2 is heard S1 is of normal intensity. There is no S3 gallop. There is no S4 gallop. There is systolic murmur left sternal border and apex. There is no rub. ABDOMEN: Soft. Nontender. Bowel sounds are well heard. There is no hepatosplenic megaly. There is no tender areas. There is no rebound guarding or rigidity. EXTREMITIES: Femorals are well felt there is no femoral bruits leg pulses well felt. There is no pedal edema. There is no leg edema. There is no cellulitis or DVT. There is no calf tenderness. THERE is no cyanosis or clubbing. Capillary refill is normal. 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 PSYCHIATRIC: The patient judgment insight are intact his affect is normal. 11/13/18 11/13/18 05:32 05:32 WBC 9.1 RBC 5.34 Hgb 15.0 Hct 44.4 MCV 83 MCH 28.1 MCHC 33.8 RDW 15.0 H Plt Count 313 Sodium 133.3 L Potassium 4.5 Chloride 103 Carbon Dioxide 21 L Anion Gap 9 BUN 19 Creatinine 0.63 Est GFR (Non-Af Amer) > 60 Glucose 129 H Calcium 9.0 Total Bilirubin 0.5 Direct Bilirubin 0.3 Neonat Total Bilirubin Not Reportable Neonat Direct Bilirubin Not Reportable Neonat Indirect Bili Not Reportable AST 21 ALT 28 Alkaline Phosphatase 65 Total Protein 5.9 L Albumin 3.2 L Digoxin 0.98 IMPRESSION/RECOMMENDATION: 1. Paroxysmal atrial fibrillation. At present patient is in sinus rhythm. Will continue the patient on beta-dioni at 100 mg p.o. every 12 hours of Lopressor. And continue the patient digoxin 0.25 mg p.o. daily. Continue the patient on Eliquis. 2. Hypertension. Blood pressure blood pressure much improved. 3. Diabetes mellitus type 2 [id number]: Continue the patient antidiabetic treatment. 4. Hyperlipidemia: the patient's lipid level shows a low HDL, but good LDL and triglyceride levels. His liver function tests are normal. And also continue the patient on statin. 5. BENIGN PROSTATIC HYPERTROPHY: Continue patient on his current medication. Note medications reviewed, and medications adjusted. Management plan discussed with Dr. Bledsoe the attending physician. Medical decision making is of moderate to high complexity. 40 minutes spent on this patient with more than 50% of time spent in direct patient care.
--- NOTE | 2018-11-13 16:22 | PDOC PROGRESS REPORT ---
Subjective Progress Note for:: 11/13/18 Subjective:: Patient said he feels better, presently sinus rhythm Reason For Visit: ATRIAL FIBRILLATION WITH RVR; DM; HTN; HLD Physical Exam Vital Signs: Temp Pulse Resp BP Pulse Ox 97.5 F 77 20 108/54 L 100 11/13/18 11:18 11/13/18 14:00 11/13/18 11:18 11/13/18 12:00 11/13/18 11:18 Intake & Output 11/12/18 11/13/18 11/14/18 06:59 06:59 06:59 Intake Total 839 728 91 Output Total 1155 1450 150 Balance -316 -722 -59 Weight 87.1 kg 87 kg General appearance: PRESENT: no acute distress Eye exam: PRESENT: PERRLA Respiratory exam: PRESENT: clear to auscultation freda Cardiovascular exam: PRESENT: +S1, +S2 GI/Abdominal exam: PRESENT: soft Results Laboratory Results: 11/13/18 05:32 11/13/18 05:32 11/13/18 11/13/18 05:32 05:32 WBC 9.1 RBC 5.34 Hgb 15.0 Hct 44.4 MCV 83 MCH 28.1 MCHC 33.8 RDW 15.0 H Plt Count 313 Seg Neutrophils % 72.4 Lymphocytes % 16.3 Monocytes % 8.1 Eosinophils % 2.4 Basophils % 0.8 Absolute Neutrophils 6.6 Absolute Lymphocytes 1.5 Absolute Monocytes 0.7 Absolute Eosinophils 0.2 Absolute Basophils 0.1 Sodium 133.3 L Potassium 4.5 Chloride 103 Carbon Dioxide 21 L Anion Gap 9 BUN 19 Creatinine 0.63 Est GFR ( Amer) > 60 Est GFR (Non-Af Amer) > 60 Glucose 129 H Calcium 9.0 Total Bilirubin 0.5 AST 21 ALT 28 Alkaline Phosphatase 65 Total Protein 5.9 L Albumin 3.2 L 11/08/18 11/08/18 11/08/18 16:10 16:10 18:45 Creatine Kinase 70 CK-MB (CK-2) 1.42 Troponin I 0.032 0.033 Impressions: Chest X-Ray 11/08/18 16:38 IMPRESSION: CARDIAC ENLARGEMENT. VASCULAR CONGESTION. Assessment & Plan - Diagnosis (1) Atrial fibrillation with rapid ventricular response Is this a current diagnosis for this admission?: Yes (2) BPH NOS w ur obs/LUTS Is this a current diagnosis for this admission?: Yes (3) Cervical radiculopathy due to degenerative joint disease of spine Is this a current diagnosis for this admission?: Yes (4) HLD (hyperlipidemia) Qualifiers: Hyperlipidemia type: pure hypercholesterolemia Qualified Code(s): E78.00 - Pure hypercholesterolemia, unspecified; E78.0 - Pure hypercholesterolemia Is this a current diagnosis for this admission?: Yes (5) Osteoarthritis involving multiple joints on both sides of body Is this a current diagnosis for this admission?: Yes (6) Sleep disorder Is this a current diagnosis for this admission?: Yes (7) Hypertension Qualifiers: Hypertension type: essential hypertension Qualified Code(s): I10 - Essential (primary) hypertension Is this a current diagnosis for this admission?: Yes
[2018-11-13] MEDS: ATORVASTATIN CALCIUM 10 MG TABLET PO SCH (22:48)
[2018-11-14] MEDS: LANSOPRAZOLE 30 MG TAB.RAP.DR PO SCH (05:05)
[2018-11-14] MEDS: APIXABAN 5 MG TABLET PO SCH (09:58)
[2018-11-14] MEDS: DIGOXIN 0.25 MG TABLET PO SCH (09:59)
[2018-11-14] MEDS: METFORMIN HCL 500 MG TABLET PO SCH (09:59)
[2018-11-14] MEDS: METOPROLOL TARTRATE 50 MG TABLET PO SCH (09:59)
[2018-11-14] MEDS: PIOGLITAZONE HCL 15 MG TABLET PO SCH (09:59)
[2018-11-14] MEDS: LISINOPRIL 5 MG TABLET PO SCH (09:59)
[2018-11-14] MEDS: ACETAMINOPHEN 325 MG TABLET PO PRN (10:06)
--- NOTE | 2018-11-14 12:37 | PDOC DISCHARGE SUMMARY ---
General - Admit/Disc Date/PCP Admission Date/Primary Care Provider: 11/08/18 18:40 DOROTHY TASHI Discharge Date: 11/14/18 - Discharge Diagnosis (1) Atrial fibrillation with rapid ventricular response Is this a current diagnosis for this admission?: Yes (2) BPH NOS w ur obs/LUTS Is this a current diagnosis for this admission?: Yes (3) Cervical radiculopathy due to degenerative joint disease of spine Is this a current diagnosis for this admission?: Yes (4) HLD (hyperlipidemia) Is this a current diagnosis for this admission?: Yes (5) Osteoarthritis involving multiple joints on both sides of body Is this a current diagnosis for this admission?: Yes (6) Sleep disorder Is this a current diagnosis for this admission?: Yes (7) Hypertension Is this a current diagnosis for this admission?: Yes - Additional Information Prescriptions: Apixaban [Eliquis 5 mg Tablet] 5 mg PO BID #60 tablet Digoxin [Lanoxin 0.25 mg Tablet] 0.125 mg PO DAILY #30 tablet Lisinopril [Prinivil 5 mg Tablet] 5 mg PO DAILY #30 tablet Metoprolol Tartrate [Lopressor 50 mg Tablet] 100 mg PO Q12 #60 tablet Home Medications: Dutasteride/Tamsulosin HCl [Ashley 0.5-0.4 mg Capsule] 1 cap PO DAILY 02/07/17 Empagliflozin/Linagliptin [Glyxambi 25 mg-5 mg Tablet] 1 tab PO DAILY 02/07/17 Pioglitazone HCl [Actos 15 mg Tablet] 15 mg PO DAILY 02/07/17 Atorvastatin Calcium [Lipitor 10 mg Tablet] 10 mg PO QHS 11/08/18 Guaifenesin/Dextromethorphan [Coricidin Hbp Softgel] 2 each PO Q6HP PRN 11/08/18 Metformin HCl [Glucophage 500 mg Tablet] 1,000 mg PO BIDACBS 11/08/18 Acetaminophen [Tylenol 325 mg Tablet] 650 mg PO Q4HP PRN #0 tablet 11/14/18 Apixaban [Eliquis 5 mg Tablet] 5 mg PO BID #60 tablet 11/14/18 Digoxin [Lanoxin 0.25 mg Tablet] 0.125 mg PO DAILY #30 tablet 11/14/18 Lisinopril [Prinivil 5 mg Tablet] 5 mg PO DAILY #30 tablet 11/14/18 Metoprolol Tartrate [Lopressor 50 mg Tablet] 100 mg PO Q12 #60 tablet 11/14/18 History of Present Illness History of Present Illness: ROSCOE HOWELL is a 72 year old male he has a history of hypertension, diabetes mellitus type 2 he was admitted when he presented with atrial fibrillation associated with rapid ventricular response Hospital Course Hospital Course: He was admitted for the management of atrial fibrillation with rapid ventricular response. He was treated with intravenous Cardizem infusion for rate control, he was started on anticoagulation Eliquis. He was seen in consultation by Dr. Barber, primary care physician DR Bledsoe admitted him. Patient was seen today by the bedside presently asymptomatic, on oral medications including metoprolol titrate, digoxin, presently rate controlled Physical Exam Vital Signs: Temp Pulse Resp BP Pulse Ox 97.4 F 66 20 111/61 98 11/14/18 02:56 11/14/18 07:00 11/14/18 02:56 11/14/18 02:56 11/14/18 02:56 Intake & Output 11/13/18 11/14/18 11/15/18 06:59 06:59 06:59 Intake Total 728 91 Output Total 1450 450 Balance -722 -359 Weight 87 kg 85.5 kg General appearance: PRESENT: no acute distress, well-developed, well-nourished Head exam: PRESENT: atraumatic, normocephalic Eye exam: PRESENT: conjunctiva pink, EOMI, PERRLA Ear exam: PRESENT: normal external ear exam Mouth exam: PRESENT: moist, tongue midline Neck exam: PRESENT: full ROM Respiratory exam: PRESENT: clear to auscultation freda Cardiovascular exam: PRESENT: RRR, +S1, +S2 Vascular exam: PRESENT: normal capillary refill GI/Abdominal exam: PRESENT: normal bowel sounds, soft Rectal exam: PRESENT: deferred Neurological exam: PRESENT: alert, awake, oriented to person, oriented to place, oriented to time, oriented to situation, CN II-XII grossly intact Psychiatric exam: PRESENT: appropriate affect, normal mood Skin exam: PRESENT: dry, intact, warm Results Laboratory Results: 11/13/18 05:32 11/13/18 05:32 11/08/18 11/08/18 11/08/18 16:10 16:10 18:45 Creatine Kinase 70 CK-MB (CK-2) 1.42 Troponin I 0.032 0.033 Impressions: Chest X-Ray 11/08/18 16:38 IMPRESSION: CARDIAC ENLARGEMENT. VASCULAR CONGESTION. Qualifiers - * PATIENT BEING DISCHARGED WITH ANY OF THE FOLLOWING DIAGNOSIS: No
[2018-11-14 12:45] VITALS: BP 101/60
--- NOTE | 2018-11-14 21:54 | Progress Note ---
Provider Note Provider Note: CARDIOLOGY PROGRESS NOTES by Dr. Mitchell has been on 11/14/2018. SUBJECTIVE: The patient continues to be in sinus rhythm. He denies any chest pain or discomfort. There is no PND orthopnea. There is no palpitations. There is no ventricular arrhythmia seen on the monitor. There is no TIA CVA symptoms there is no leg edema. The patient has no shortness of breath. The patient denies any dizziness, near-syncope or syncope. PHYSICAL EXAMINATION: The patient is well-built and well-nourished in no acute distress. He is well-groomed. Selected Entries 11/14/18 12:44 Temperature 97.4 F Pulse Rate 66 Respiratory 20 Rate Blood Pressure 111/58 L [Left Upper Arm ] Blood Pressure 101/60 [Right Upper Arm] O2 Sat by Pulse 98 Oximetry 11/13/18 11/14/18 11/14/18 05:32 06:11 12:32 POC Glucose 118 H 97 Digoxin 0.98 The patient's EKG done yesterday after he converted to sinus rhythm shows sinus rhythm with left anterior hemiblock. No acute changes seen. IMPRESSION/RECOMMENDATION: 1. Paroxysmal atrial fibrillation. At present patient is in sinus rhythm. Will continue the patient on beta-dioni at 100 mg p.o. every 12 hours of Lopressor. And continue the patient digoxin 0.25 mg p.o. daily. Continue the patient on Eliquis. 2. Hypertension. Blood pressure blood pressure much improved. 3. Diabetes mellitus type 2 [id number]: Continue the patient antidiabetic treatment. 4. Hyperlipidemia: the patient's lipid level shows a low HDL, but good LDL and triglyceride levels. His liver function tests are normal. And also continue the patient on statin. 5. BENIGN PROSTATIC HYPERTROPHY: Continue patient on his current medication. Note medications reviewed, and an discharge medications reviewed with the patient, and with the attending physician covering Dr. Meadows. Recommend continue the patient on metoprolol 100 mg p.o. every 12 hours, continue Eliquis at 5 mg p.o. twice daily, and digoxin 0.25 mg p.o. daily. Continue patient antidiabetic medications, and the patient statin. As an outpatient will get a IV Lexiscan Cardiolite stress test versus a exercise treadmill Cardiolite stress test [if the patient can exercise], and also an echocardiogram. Also will get a 30-day event monitor to see if the patient has any breakthrough paroxysms of atrial fibrillation. This has been discussed with the patient. The patient desires to follow-up with me in the office. My cell phone number given to the patient. Will sign off the case.
--- NOTE | 2018-11-19 12:57 | EKG REPORT ---
SEVERITY:- ABNORMAL ECG - SINUS RHYTHM PROBABLE LEFT ATRIAL ABNORMALITY MARKEDLY POSTERIOR QRS AXIS LOW VOLTAGE THROUGHOUT BORDERLINE T ABNORMALITIES, INFERIOR LEADS : Confirmed by: Angela Laurent 19-Nov-2018 12:56:37
== END 2018-11-14 13:37 | disposition home or self-care (01) | DRG 309 ==
LOC: ER 15:40 → EH 18:40 → 3S 19:35
PROVIDERS: ADMIT Internal Medicine Geriatric Medicine; ATTEND Internal Medicine Geriatric Medicine
DX: I48.0 Paroxysmal atrial fibrillation (principal); N13.8 Other obstructive and reflux uropathy; E11.9 Type 2 diabetes mellitus without complications; I10 Essential (primary) hypertension; E78.00 Pure hypercholesterolemia, unspecified; E78.5 Hyperlipidemia, unspecified; N40.1 Benign prostatic hyperplasia with lower urinary tract symptoms; M54.12 Radiculopathy, cervical region; M15.3 Secondary multiple arthritis; G47.9 Sleep disorder, unspecified; I45.10 Unspecified right bundle-branch block; Z79.899 Other long term (current) drug therapy; Z79.84 Long term (current) use of oral hypoglycemic drugs; Z79.82 Long term (current) use of aspirin; Z82.49 Family history of ischemic heart disease and other diseases of the circulatory system
CPT/HCPCS: 36415; 71045; 80048; 80053; 80061; 80162; 81001; 82550; 82553; 82962; 83036; 83735; 84439; 84443; 84481; 84484; 85025; 85027; 93005; 93010; 96374; 99285; J1160; J1650; J1815; J3490; J7030

== ENCOUNTER 2019-01-19 09:39 | Inpatient (IN) | payer MEDICARE, MEDICAID ==
[2019-01-19 10:10] LABS: ABSOLUTE BASOPHILS # (AUTO) 0.1 10^3/uL (0.0-0.2); ABSOLUTE EOSINOPHILS # (AUTO) 0.1 10^3/uL (0.0-0.6); ABSOLUTE LYMPHOCYTES (AUTO) 1.5 10^3/uL (0.5-4.7); ABSOLUTE MONOCYTES (AUTO) 0.8 10^3/uL (0.1-1.4); ABSOLUTE NEUT (AUTO) 7.5 10^3/uL (1.7-8.2); BASOPHILS % (AUTO) 0.9 % (0-2); EOSINOPHILS % (AUTO) 0.8 % (0-6); HEMATOCRIT 47.1 % (37.9-51.0); HEMOGLOBIN 15.9 g/dL (13.5-17.0); LYMPHOCYTES % (AUTO) 15.3 % (13-45); MEAN CORPUSCULAR HEMOGLOBIN 28.6 pg (27.0-33.4); MEAN CORPUSCULAR HGB CONC 33.8 g/dL (32.0-36.0); MEAN CORPUSCULAR VOLUME 85 fl (80-97); MONOCYTES % (AUTO) 7.7 % (3-13); PLATELET COUNT 302 10^3/uL (150-450); RED BLOOD COUNT 5.57 10^6/uL (4.35-5.55); RED CELL DISTRIBUTION WIDTH 14.7 % (11.5-14.0); SEGMENTED NEUTROPHILS % (AUTO) 75.3 % (42-78); TOTAL CELLS COUNTED % (AUTO) 100 %; WHITE BLOOD COUNT 9.9 10^3/uL (4.0-10.5)
[2019-01-19] MEDS ORDERED: DILTIAZEM HCL INJ 25 MG/5 ML VIAL IV ONE (10:22)
--- NOTE | 2019-01-19 10:29 | ER Document Report ---
ED General - General Chief Complaint: Shortness Of Breath Stated Complaint: CHEST PAIN, SHORTNESS OF BREATH Time Seen by Provider: 01/19/19 09:54 Primary Care Provider: DOROTHY AKINS MD [Primary Care Provider] - Follow up as needed Notes: Patient is a 73-year-old male who presents emergency department with a chief complaint of chest pain in difficulty breathing. His symptoms started at 2 AM the morning. He states that the pain feels more in his muscle than in his chest. I asked the patient to elaborate and tell me how it felt, but he states "it was only a little pain." Nothing makes the feeling better or worse. He denies any abdominal pain, nausea, vomiting, diarrhea, difficulty eating, difficulty swallowing, or cough. He has a history of atrial fibrillation, diabetes, hyperlipidemia, and hypertension. He is taking his medication as prescribed and took it this morning. His medications include metoprolol, digoxin, Eliquis, Lipitor, Glyxambi, and Ashley. He did see his primary care provider yesterday, but did not have any symptoms. 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 TRAVEL OUTSIDE OF THE [place] IN LAST 30 DAYS: No - Related Data Allergies/Adverse Reactions: No Known Allergies Allergy (Verified 01/19/19 09:41) Past Medical History - Social History Smoking Status: Unknown if Ever Smoked Chew tobacco use (# tins/day): No Frequency of alcohol use: None Drug Abuse: None Family History: Reviewed & Not Pertinent Patient has suicidal ideation: No Patient has homicidal ideation: No - Past Medical History Cardiac Medical History: Reports: Hx Atrial Fibrillation, Hx Hypercholesterolemia, Hx Hypertension Denies: Hx Coronary Artery Disease, Hx Heart Attack Pulmonary Medical History: Denies: Hx Asthma, Hx Bronchitis, Hx COPD, Hx Pneumonia Neurological Medical History: Denies: Hx Cerebrovascular Accident, Hx Seizures Endocrine Medical History: Reports: Hx Diabetes Mellitus Type 2 Renal/ Medical History: Denies: Hx Peritoneal Dialysis Musculoskeletal Medical History: Denies Hx Arthritis Past Surgical History: Reports: Hx Genitourinary Surgery - vasectomy - Immunizations Hx Diphtheria, Pertussis, Tetanus Vaccination: Yes Review of Systems - Review of Systems Notes: REVIEW OF SYSTEMS: CONSTITUTIONAL : Denies recent illness. Denies recent unintentional weight loss. Denies fever, chills, or sweats. EENT: Denies eye, ear, throat, or mouth pain, discharge, or symptoms. Denies nasal or sinus congestion. CARDIOVASCULAR: See HPI. RESPIRATORY: See HPI. GASTROINTESTINAL: Denies nausea, vomiting, and diarrhea. Denies abdominal pain. Denies constipation. GENITOURINARY: Denies difficulty urinating, burning, blood in urine, urgency or frequency. MUSCULOSKELETAL: Denies neck and back pain. Denies joint pain or swelling. SKIN: Denies rash, itchiness, or lesions HEMATOLOGIC : Denies easy bruising or bleeding. LYMPHATIC: Denies swollen, painful, enlarged glands. NEUROLOGICAL: Denies no numbness or tingling denies weakness. Denies headache. Denies altered mental status. Denies alteration in speech. PSYCHIATRIC: Denies stress, anxiety, alteration in sleep patterns, or depression. All other systems reviewed and negative. Physical Exam - Vital signs Vitals: Resp BP Pulse Ox 20 141/68 H 97 01/19/19 09:56 01/19/19 09:56 01/19/19 09:56 - Notes Notes: PHYSICAL EXAMINATION: GENERAL: Appears well, healthy, well-nourished, no acute distress. HEAD: Normocephalic, atraumatic. EYES: PERRL, conjunctiva normal, all extraocular movements intact, sclera nonicteric ENT: Moist mucous membranes. NECK: Supple, no noticeable swelling, redness, rash. Normal range of motion. LUNGS: Equal breath sounds bilaterally and clear to auscultation. No wheezes rales or rhonchi. CARDIOVASCULAR: Irregularly irregular. Radial pulses 2+, normal. ABDOMEN: Normoactive bowel sounds. Soft, nontender, no guarding, no rebound tenderness, and no masses palpated. EXTREMITIES: Normal strength and range of motion, no pitting or edema. No cyanosis. NEUROLOGICAL: Moves all extremities upon command. Strength 5/5 in all e xtremities. PSYCH: Normal mood, normal affect. SKIN: Warm, dry. No rash, lesions, ulcerations noted. Normal skin turgor. Course - Re-evaluation Re-evalutation: 01/19/19 10:30 At the time of my assessment the patient is in atrial fibrillation. With a heart rate of 160s-170s. He is also hypertensive. According to his medical record he has had this before and was given adenosine to help his heart rate. I do not suspect he needs adenosine at this time, as he is not hemodynamically unstable. He will be given 10 mg of diltiazem and be reevaluated. 01/19/19 11:10 I reevaluated the patient and his heart rate is in the 110s to 120s. He does admit to feeling better than when he did at my first assessment. A repeat EKG will be done. He will be started on a Cardizem drip. His chest x-ray is negative for any acute pulmonary process. His hematology and chemistries are unremarkable. His troponin is negative. I will call Dr. Akins in regards to this case. 01/19/19 11:[address] Akins, and the patient will be admitted to [facility]. - Vital Signs Vital signs: Temp Pulse Resp BP Pulse Ox 19 121/75 96 01/19/19 10:37 01/19/19 10:37 01/19/19 10:37 - Laboratory Result Diagrams: 01/19/19 09:58 01/19/19 09:58 Laboratory results interpreted by me: 01/19/19 01/19/19 09:58 09:58 RBC 5.57 H RDW 14.7 H Glucose 129 H Creatine Kinase 45 L - EKG Interpretation by Me Additional EKG results interpreted by me: 01/19/19 09:46 Atrial fibrillation. Rate 148. QRS 80; QT 300; QTC 471. No ST elevations or depressions. 01/19/19 11:14 Atrial fibrillation. Rate 127. QRS 86; QT 312; QTC 454. No ST elevations or depressions. Discharge - Discharge Clinical Impression: Atrial fibrillation with rapid ventricular response Hypertension Qualifiers: Hypertension type: essential hypertension Qualified Code(s): I10 - Essential (primary) hypertension Condition: Fair Disposition: ADMITTED INPATIENT Admitting Provider: Ladi Unit Admitted: [facility] Referrals: DOROTHY AKINS MD [Primary Care Provider] - Follow up as needed
[2019-01-19 10:37] LABS: ALANINE AMINOTRANSFERASE 23 U/L (21-72); ALBUMIN 4.4 g/dL (3.5-5.0); ALKALINE PHOSPHATASE 62 U/L (38-126); ANION GAP 12 (5-19); ASPARTATE AMINO TRANSFERASE 28 U/L (17-59); BILIRUBIN,DIRECT 0.2 mg/dL (0.0-0.4); BILIRUBIN,TOTAL 0.7 mg/dL (0.2-1.3); BLOOD UREA NITROGEN 18 mg/dL (7-20); CALCIUM 9.8 mg/dL (8.4-10.2); CARBON DIOXIDE 26 mmol/L (22-30); CHLORIDE 104 mmol/L (98-107); CREATINE KINASE 45 U/L (55-170); GLUCOSE 129 mg/dL (75-110); POTASSIUM 4.8 mmol/L (3.6-5.0); SODIUM 141.6 mmol/L (137-145); TOTAL PROTEIN 7.5 g/dL (6.3-8.2)
[2019-01-19 10:48] LABS: TROPONIN I < 0.012 ng/mL
--- NOTE | 2019-01-19 10:58 | RADIOLOGY REPORT (SQ) ---
EXAM DESCRIPTION: CHEST SINGLE VIEW COMPLETED DATE/TIME: 01/19/2019 10:40 am REASON FOR STUDY: chest pain/shortness of breath COMPARISON: CT chest 02/07/2017 Chest films 11/08/2018, 02/07/2017 EXAM PARAMETERS: NUMBER OF VIEWS: One view. TECHNIQUE: Single frontal radiographic view of the chest acquired. RADIATION DOSE: NA LIMITATIONS: None. FINDINGS: LUNGS AND PLEURA: No opacities, masses or pneumothorax. No pleural effusion. MEDIASTINUM AND HILAR STRUCTURES: No masses. Contour normal. HEART AND VASCULAR STRUCTURES: Heart normal in size. Normal vasculature. BONES: No acute findings. HARDWARE: None in the chest. OTHER: No other significant finding. IMPRESSION: NO ACUTE RADIOGRAPHIC FINDING IN THE CHEST. TECHNICAL DOCUMENTATION: JOB ID: [id number] [employer]- All Rights Reserved Reading location - IP/workstation name: [email or web address]
[2019-01-19] MEDS: DILTIAZEM HCL/D5W 125 MG/125 ML RTUINJ IV PRN ×2 (11:50→22:50)
--- NOTE | 2019-01-19 19:19 | PDOC H&P ---
History of Present Illness Admission Date/PCP: 01/19/19 11:55 DOROTHYJONY AKINS Patient complains of: Shortness Of Breath History of Present Illness: ROSCOE HOWELL is a 73 year old male known to my practice who presented to the ED with complain of shortness of breath with nonspecific left sided chest pain. Patient reported onset of symptoms earlier today but hasd experienced intermittent palpitation over last couple of days. he is in the process of moving into an apartment and his mother is currently sick in [place] which bother the patient. He reported compliance with his prescribed medication. He denied excessive caffeine ingestion, OTC decongestant usage, cigarette smoking, alcohol or illicit drug usage. He denied any fever or chills. His initial ED evaluation was significant for atrial fibrillation with rapid ventricular rate. He was started on IV Cardizem drip and advised admission for further evaluation and management. 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 Past Medical History Cardiac Medical History: Reports: Atrial Fibrillation, Hyperlipidema, Hypertension Denies: Coronary Artery Disease, Myocardial Infarction Pulmonary Medical History: Denies: Asthma, Bronchitis, Chronic Obstructive Pulmonary Disease (COPD), Pneumonia Neurological Medical History: Denies: Seizures Endocrine Medical History: Reports: Diabetes Mellitus Type 2 Renal/ Medical History: Reports: Other - BHP with LUTS Musculoskeltal Medical History: Reports: Arthritis - multiple joints, cervical spine deg. disc disease with radiculopathy Hematology: Denies: Anemia Social History Smoking Status: Former Smoker Last Time Smoked: 2004 Frequency of Alcohol Use: None Hx Recreational Drug Use: No Drugs: None Hx Prescription Drug Abuse: No Family History Family History: Reviewed & Not Pertinent Parental Family History Reviewed: Yes Children Family History Reviewed: Yes Sibling(s) Family History Reviewed.: Yes Medication/Allergy Home Medications: Dutasteride/Tamsulosin HCl [Ashley 0.5-0.4 mg Capsule] 1 cap PO DAILY 02/07/17 Pioglitazone HCl [Actos 15 mg Tablet] 15 mg PO DAILY 02/07/17 Atorvastatin Calcium [Lipitor 10 mg Tablet] 10 mg PO QHS 11/08/18 Metformin HCl [Glucophage 500 mg Tablet] 1,000 mg PO BIDACBS 11/08/18 Lisinopril [Prinivil 5 mg Tablet] 5 mg PO DAILY #30 tablet 11/14/18 Digoxin [Lanoxin 0.125 mg Tablet] 0.125 mg PO DAILY 01/19/19 Flu Vacc [id number](65Yr Up)/Pf [Fluzone High-Dose Syr] 0.5 ml IM .RECEIVED 09/04/18 MDD 09/04/18 01/19/19 Metoprolol Tartrate [Lopressor 50 mg Tablet] 50 mg PO Q12 01/19/19 Allergies/Adverse Reactions: No Known Allergies Allergy (Verified 01/19/19 09:41) Review of Systems Constitutional: ABSENT: chills, fever(s), headache(s), weight gain, weight loss Eyes: PRESENT: visual disturbances - Correction with glasses Ears: ABSENT: hearing changes Nose, Mouth, and Throat: ABSENT: as per HPI, headache(s), mouth pain, sore throat, vertigo, other Cardiovascular: PRESENT: chest pain - left chest but unclear about intensity, palpitations Respiratory: PRESENT: dyspnea. ABSENT: as per HPI, cough, hemoptysis, sputum, other Gastrointestinal: ABSENT: abdominal pain, constipation, diarrhea, hematemesis, hematochezia, nausea, vomiting Genitourinary: ABSENT: dysuria, hematuria Musculoskeletal: ABSENT: joint swelling Integumentary: ABSENT: rash, wounds Neurological: ABSENT: abnormal gait, abnormal speech, confusion, dizziness, focal weakness, syncope Psychiatric: ABSENT: anxiety, depression, homidical ideation, suicidal ideation Endocrine: ABSENT: cold intolerance, heat intolerance, polydipsia, polyuria Hematologic/Lymphatic: ABSENT: easy bleeding, easy bruising, lymphadenopathy Allergic/Immunologic: ABSENT: seasonal rhinorrhea Physical Exam Vital Signs: Temp Pulse Resp BP Pulse Ox 98.2 F 95 16 112/50 L 100 01/19/19 15:38 01/19/19 18:31 01/19/19 15:38 01/19/19 18:31 01/19/19 15:38 Intake & Output 01/18/19 01/19/19 01/20/19 06:59 06:59 06:59 Intake Total 2 Balance 2 Weight 93.1 kg General appearance: PRESENT: no acute distress, well-developed, well-nourished Eye exam: PRESENT: conjunctiva pink, EOMI, PERRLA. ABSENT: scleral icterus Ear exam: PRESENT: normal external ear exam Mouth exam: PRESENT: moist, tongue midline Neck exam: PRESENT: full ROM. ABSENT: carotid bruit, JVD, lymphadenopathy, thyromegaly Respiratory exam: ABSENT: accessory muscle use, chest wall tenderness, clear to auscultation freda, crackles, decreased breath sounds, prolonged expiratory phas, rales, retraction, rhonchi, stridor, symmetrical, tachypnea, unlabored, wheezes, other Cardiovascular exam: PRESENT: irregular rhythm, +S1, +S2. ABSENT: diastolic murmur, systolic murmur Pulses: PRESENT: normal dorsalis pedis pul, +2 pedal pulses bilateral Vascular exam: PRESENT: normal capillary refill. ABSENT: pallor GI/Abdominal exam: PRESENT: normal bowel sounds, soft. ABSENT: distended, guarding, mass, organolmegaly, rebound, tenderness Rectal exam: PRESENT: deferred Extremities exam: ABSENT: calf tenderness, joint swelling, pedal edema Musculoskeletal exam: PRESENT: ambulatory Neurological exam: PRESENT: alert, awake, oriented to person, oriented to place, oriented to time, oriented to situation, CN II-XII grossly intact. ABSENT: motor sensory deficit Psychiatric exam: PRESENT: appropriate affect, normal mood. ABSENT: homicidal i deation, suicidal ideation Skin exam: PRESENT: dry, warm Results Laboratory Results: 01/19/19 09:58 01/19/19 09:58 01/19/19 01/19/19 09:58 09:58 WBC 9.9 RBC 5.57 H Hgb 15.9 Hct 47.1 MCV 85 MCH 28.6 MCHC 33.8 RDW 14.7 H Plt Count 302 Seg Neutrophils % 75.3 Lymphocytes % 15.3 Monocytes % 7.7 Eosinophils % 0.8 Basophils % 0.9 Absolute Neutrophils 7.5 Absolute Lymphocytes 1.5 Absolute Monocytes 0.8 Absolute Eosinophils 0.1 Absolute Basophils 0.1 Sodium 141.6 Potassium 4.8 Chloride 104 Carbon Dioxide 26 Anion Gap 12 BUN 18 Creatinine 0.82 Est GFR ( Amer) > 60 Est GFR (Non-Af Amer) > 60 Glucose 129 H Calcium 9.8 Total Bilirubin 0.7 AST 28 ALT 23 Alkaline Phosphatase 62 Total Protein 7.5 Albumin 4.4 01/19/19 01/19/19 09:58 09:58 Creatine Kinase 45 L CK-MB (CK-2) 0.90 Troponin I < 0.012 Impressions: Chest X-Ray 01/19/19 09:56 IMPRESSION: NO ACUTE RADIOGRAPHIC FINDING IN THE CHEST. Assessment & Plan - Diagnosis (1) Chronic atrial fibrillation with rapid ventricular response Is this a current diagnosis for this admission?: Yes Plan: Maintain on IV Cardizem infusion with plan to transition to oral Cardizem as rate improves. Continue Eliquis therapy for anti coagulation. (2) Type 2 diabetes mellitus Qualifiers: Diabetes mellitus shelter insulin use: without rat exterminator use Diabetes mellitus complication status: with unspecified complications Qualified Code(s): E11.8 - Type 2 diabetes mellitus with unspecified complications Is this a current diagnosis for this admission?: Yes Plan: Maintain on accuchek qachs and sliding scale Humalog insulin therapy. Continue preadmission medication management. (3) Hypertension Qualifiers: Hypertension type: essential hypertension Qualified Code(s): I10 - Essential (primary) hypertension Is this a current diagnosis for this admission?: Yes Plan: Continue preadmission medication management. (4) HLD (hyperlipidemia) Qualifiers: Hyperlipidemia type: pure hypercholesterolemia Qualified Code(s): E78.00 - Pure hypercholesterolemia, unspecified; E78.0 - Pure hypercholesterolemia Is this a current diagnosis for this admission?: Yes Plan: Continue preadmission medication management. (5) BPH NOS w ur obs/LUTS Is this a current diagnosis for this admission?: Yes Plan: Continue preadmission medication management. (6) Cervical radiculopathy due to degenerative joint disease of spine Is this a current diagnosis for this admission?: Yes Plan: Continue preadmission medication management. (7) Osteoarthritis involving multiple joints on both sides of body Is this a current diagnosis for this admission?: Yes Plan: Continue preadmission medication management. - Time Time Spent: 50 to 70 Minutes Medications reviewed and adjusted accordingly: Yes Anticipated discharge: Home Within: Other - Inpatient Certification Based on my medical assessment, after consideration of the patient's comorbidities, presenting symptoms, or acuity I expect that the services needed warrant INPATIENT care.: Yes I certify that my determination is in accordance with my understanding of Medicare's requirements for reasonable and necessary INPATIENT services [42 CFR 412.3e].: Yes Medical Necessity: Significant Comorbidiites Make Outpatient Treatment Too Risky, Need Close Monitoring Due to Risk of Patient Decompensation, Need For Continuous Telemetry Monitoring, Risk of Complication if Not Cared For in Hospital, Risk of Diagnosis Which Will Require Inpatient Eval/Care/Monitoring Post Hospital Care: D/C Print Shop Manager Documentation - Plan Summary Plan Summary: See admitting physician orders as per above care plan.
[2019-01-19] MEDS ORDERED: DEXTROSE 40% GEL 15 GM TUBE PO PRN ×2 (19:22)
[2019-01-19] MEDS ORDERED: GLUCAGON,HUMAN RECOMB 1 MG INJ IM PRN (19:22)
[2019-01-19] MEDS ORDERED: DEXTROSE 50%-WATER 25 GM/50 ML DISP.SYRIN IV PRN ×2 (19:22)
[2019-01-19] MEDS: METOPROLOL TARTRATE 50 MG TABLET PO SCH (20:47)
[2019-01-19] MEDS: APIXABAN 5 MG TABLET PO SCH (20:47)
[2019-01-19 21:48] LABS: FREE T3 3.27 pg/mL (2.77-5.27); FREE T4 (FREE THYROXINE) 1.09 ng/dL (0.78-2.19)
[2019-01-19 22:02] LABS: THYROID STIMULATING HORMONE 1.36 uIU/mL (0.47-4.68)
--- NOTE | 2019-01-19 22:18 | EKG REPORT ---
SEVERITY:- ABNORMAL ECG - ATRIAL FIBRILLATION, V-RATE 95-170 LOW VOLTAGE IN FRONTAL LEADS : Confirmed by: Angela Laurent 19-Jan-2019 22:17:39
--- NOTE | 2019-01-19 22:18 | EKG REPORT ---
SEVERITY:- ABNORMAL ECG - ATRIAL FIBRILLATION, V-RATE 81-165 LEFT AXIS DEVIATION LOW VOLTAGE IN FRONTAL LEADS : Confirmed by: Angela Laurent 19-Jan-2019 22:17:33
[2019-01-19] MEDS: INSULIN LISPRO 100 UNIT/ML 3 ML VIAL SUBCUT SCH (22:34)
[2019-01-19] MEDS: ATORVASTATIN CALCIUM 10 MG TABLET PO SCH (22:49)
[2019-01-20 05:19] LABS: ABSOLUTE BASOPHILS # (AUTO) 0.1 10^3/uL (0.0-0.2); ABSOLUTE EOSINOPHILS # (AUTO) 0.1 10^3/uL (0.0-0.6); ABSOLUTE LYMPHOCYTES (AUTO) 1.9 10^3/uL (0.5-4.7); ABSOLUTE MONOCYTES (AUTO) 0.7 10^3/uL (0.1-1.4); ABSOLUTE NEUT (AUTO) 5.1 10^3/uL (1.7-8.2); BASOPHILS % (AUTO) 1.1 % (0-2); EOSINOPHILS % (AUTO) 1.8 % (0-6); HEMATOCRIT 43.1 % (37.9-51.0); HEMOGLOBIN 14.8 g/dL (13.5-17.0); LYMPHOCYTES % (AUTO) 23.5 % (13-45); MEAN CORPUSCULAR HEMOGLOBIN 28.5 pg (27.0-33.4); MEAN CORPUSCULAR HGB CONC 34.3 g/dL (32.0-36.0); MEAN CORPUSCULAR VOLUME 83 fl (80-97); MONOCYTES % (AUTO) 9.1 % (3-13); PLATELET COUNT 259 10^3/uL (150-450); RED CELL DISTRIBUTION WIDTH 14.7 % (11.5-14.0); SEGMENTED NEUTROPHILS % (AUTO) 64.5 % (42-78); TOTAL CELLS COUNTED % (AUTO) 100 %
[2019-01-20 05:35] LABS: ALANINE AMINOTRANSFERASE 30 U/L (21-72); ALBUMIN 3.6 g/dL (3.5-5.0); ALKALINE PHOSPHATASE 61 U/L (38-126); ANION GAP 8 (5-19); ASPARTATE AMINO TRANSFERASE 17 U/L (17-59); BILIRUBIN,DIRECT 0.1 mg/dL (0.0-0.4); BILIRUBIN,TOTAL 0.5 mg/dL (0.2-1.3); BLOOD UREA NITROGEN 19 mg/dL (7-20); CALCIUM 9.3 mg/dL (8.4-10.2); CARBON DIOXIDE 25 mmol/L (22-30); CHLORIDE 104 mmol/L (98-107); CHOLESTEROL 103.65 mg/dL (0-200); GLUCOSE 112 mg/dL (75-110); POTASSIUM 4.3 mmol/L (3.6-5.0); SODIUM 137.1 mmol/L (137-145); TOTAL PROTEIN 6.1 g/dL (6.3-8.2); TRIGLYCERIDES 105 mg/dL (<150)
[2019-01-20 05:46] LABS: DIRECT LDL 62 mg/dL (<100)
[2019-01-20] MEDS: LANSOPRAZOLE 30 MG TAB.RAP.DR PO SCH (06:00)
[2019-01-20] MEDS ORDERED: DIGOXIN 0.125 MG TABLET PO SCH (10:00)
[2019-01-20] MEDS ORDERED: DUTASTERIDE PO SCH (10:00)
[2019-01-20] MEDS ORDERED: TAMSULOSIN HCL PO SCH (10:00)
[2019-01-20] MEDS: LISINOPRIL 5 MG TABLET PO SCH (10:14)
[2019-01-20] MEDS: PIOGLITAZONE HCL 15 MG TABLET PO SCH (10:15)
[2019-01-20] MEDS: APIXABAN 5 MG TABLET PO SCH ×2 (10:16→18:12)
[2019-01-20] MEDS: METFORMIN HCL 500 MG TABLET PO SCH ×2 (10:17→16:28)
[2019-01-20] MEDS: METOPROLOL TARTRATE 50 MG TABLET PO SCH (10:18)
[2019-01-20] MEDS: INSULIN LISPRO 100 UNIT/ML 3 ML VIAL SUBCUT SCH ×4 (10:27→21:15)
[2019-01-20] MEDS ORDERED: DILTIAZEM HCL/D5W 125 MG/125 ML RTUINJ IV ONE (13:00)
[2019-01-20] MEDS: DILTIAZEM HCL/D5W 125 MG/125 ML RTUINJ IV PRN (13:16)
--- NOTE | 2019-01-20 15:25 | PDOC PROGRESS REPORT ---
Subjective Progress Note for:: 01/20/19 Subjective:: No chest pain or difficulty with breathing. No nausea, vomiting, or abdominal pain. Remain on IV Cardizem infusion. No fever or chills. Reason For Visit: CHRONIC ATRIAL FIBRILLATION WITH RAPID VENTRICULAR Physical Exam Vital Signs: Temp Pulse Resp BP Pulse Ox 97.8 F 96 16 120/89 H 97 01/20/19 11:13 01/20/19 14:23 01/20/19 11:13 01/20/19 13:00 01/20/19 11:13 Intake & Output 01/19/19 01/20/19 01/21/19 06:59 06:59 06:59 Intake Total 353 125 Output Total 475 Balance -122 125 Weight 91.3 kg General appearance: PRESENT: no acute distress, well-developed, well-nourished Head exam: PRESENT: atraumatic, normocephalic Ear exam: PRESENT: normal external ear exam Mouth exam: PRESENT: moist Cardiovascular exam: PRESENT: irregular rhythm, +S1, +S2. ABSENT: diastolic murmur, systolic murmur Vascular exam: PRESENT: normal capillary refill, pallor GI/Abdominal exam: PRESENT: normal bowel sounds, soft. ABSENT: distended, guarding, mass, organolmegaly, rebound, tenderness Extremities exam: ABSENT: pedal edema Neurological exam: PRESENT: alert, awake, oriented to person, oriented to place, oriented to time, oriented to situation, CN II-XII grossly intact. ABSENT: motor sensory deficit Psychiatric exam: PRESENT: appropriate affect, normal mood. ABSENT: homicidal ideation, suicidal ideation Skin exam: PRESENT: dry, warm Results Laboratory Results: 01/20/19 04:37 01/20/19 04:37 01/19/19 01/20/19 01/20/19 09:56 04:37 04:37 WBC 8.0 RBC 5.20 Hgb 14.8 Hct 43.1 MCV 83 MCH 28.5 MCHC 34.3 RDW 14.7 H Plt Count 259 Seg Neutrophils % 64.5 Lymphocytes % 23.5 Monocytes % 9.1 Eosinophils % 1.8 Basophils % 1.1 Absolute Neutrophils 5.1 Absolute Lymphocytes 1.9 Absolute Monocytes 0.7 Absolute Eosinophils 0.1 Absolute Basophils 0.1 Sodium 137.1 Potassium 4.3 Chloride 104 Carbon Dioxide 25 Anion Gap 8 BUN 19 Creatinine 0.75 Est GFR ( Amer) > 60 Est GFR (Non-Af Amer) > 60 Glucose 112 H Calcium 9.3 Total Bilirubin 0.5 AST 17 ALT 30 Alkaline Phosphatase 61 Total Protein 6.1 L Albumin 3.6 Triglycerides 105 Cholesterol 103.65 LDL Cholesterol Direct 62 VLDL Cholesterol 21.0 HDL Cholesterol 33 L TSH 1.36 Free T4 1.09 Free T3 pg/mL 3.27 01/19/19 01/19/19 09:58 09:58 Creatine Kinase 45 L CK-MB (CK-2) 0.90 Troponin I < 0.012 Impressions: Chest X-Ray 01/19/19 09:56 IMPRESSION: NO ACUTE RADIOGRAPHIC FINDING IN THE CHEST. Assessment & Plan - Diagnosis (1) Chronic atrial fibrillation with rapid ventricular response Is this a current diagnosis for this admission?: Yes Plan: D/C Metoprolol. Start on Cardizem 90 mg p.o q6 hours. D/C IV Cardizem infusion 2 hours after oral administration. Maintain on all other current medication management. (2) Type 2 diabetes mellitus Qualifiers: Diabetes mellitus intermediate accountant insulin use: without intermediate accountant use Diabetes mellitus complication status: with unspecified complications Qualified Code(s): E11.8 - Type 2 diabetes mellitus with unspecified complications Is this a current diagnosis for this admission?: Yes Plan: Continue current medication management. (3) Hypertension Qualifiers: Hypertension type: essential hypertension Qualified Code(s): I10 - Essential (primary) hypertension Is this a current diagnosis for this admission?: Yes Plan: D/C Metoprolol and optimized Lisinopril dosage for blood pressure management to allow use of Cardizem for A.Fib rate control. (4) HLD (hyperlipidemia) Qualifiers: Hyperlipidemia type: pure hypercholesterolemia Qualified Code(s): E78.00 - Pure hypercholesterolemia, unspecified; E78.0 - Pure hypercholesterolemia Is this a current diagnosis for this admission?: Yes Plan: Continue current medication management. (5) BPH NOS w ur obs/LUTS Is this a current diagnosis for this admission?: Yes (6) Cervical radiculopathy due to degenerative joint disease of spine Is this a current diagnosis for this admission?: Yes (7) Osteoarthritis involving multiple joints on both sides of body Is this a current diagnosis for this admission?: Yes - Time Time Spent with patient: 25-34 minutes Medications reviewed and adjusted accordingly: Yes Anticipated discharge: Home Within: Other - Inpatient Certification Based on my medical assessment, after consideration of the patient's comorbidities, presenting symptoms, or acuity I expect that the services needed warrant INPATIENT care.: Yes I certify that my determination is in accordance with my understanding of Medicare's requirements for reasonable and necessary INPATIENT services [42 CFR 412.3e].: Yes Medical Necessity: Significant Comorbidiites Make Outpatient Treatment Too Risky, Need Close Monitoring Due to Risk of Patient Decompensation, Need For Continuous Telemetry Monitoring, Risk of Complication if Not Cared For in Hospital, Risk of Diagnosis Which Will Require Inpatient Eval/Care/Monitoring Post Hospital Care: D/C Human Resources Vice President Documentation - Plan Summary Plan Summary: See above outlined orders for care plan.
[2019-01-20] MEDS: DILTIAZEM HCL 90 MG TABLET PO SCH ×2 (16:25→21:09)
[2019-01-20] MEDS: ATORVASTATIN CALCIUM 10 MG TABLET PO SCH (21:09)
[2019-01-21] MEDS: DILTIAZEM HCL 90 MG TABLET PO SCH ×2 (02:35→08:06)
[2019-01-21] MEDS: LANSOPRAZOLE 30 MG TAB.RAP.DR PO SCH (06:01)
[2019-01-21] MEDS ORDERED: DIGOXIN INJ 0.5 MG/2 ML AMPULE ONE ×2 (07:55→08:40)
[2019-01-21] MEDS: INSULIN LISPRO 100 UNIT/ML 3 ML VIAL SUBCUT SCH ×4 (08:05→21:54)
[2019-01-21] MEDS: METFORMIN HCL 500 MG TABLET PO SCH ×2 (08:06→16:00)
[2019-01-21] MEDS ORDERED: METOPROLOL TARTRATE 25 MG TABLET PO SCH (08:30)
[2019-01-21] MEDS ORDERED: DIGOXIN INJ 0.5 MG/2 ML AMPULE IV ONE (08:45)
--- NOTE | 2019-01-21 10:04 | PDOC PROGRESS REPORT ---
Subjective Progress Note for:: 01/21/19 Subjective:: Patient was admitted for atrial fibrillation's with a rapid ventricular response was put on a Cardizem drip and DC yesterday and put in the p.o. Cardizem This morning patient's heart rate goes to up to [address] Elisabeth was consulted and IV digoxin's now back to the 80 range Patient is currently Cardizem 90 mg every 6 Patient denied any chest pain to than any shortness of the breath Patient was wondering that happened again when he was admitted last time Reason For Visit: CHRONIC ATRIAL FIBRILLATION WITH RAPID VENTRICULAR Physical Exam Vital Signs: Temp Pulse Resp BP Pulse Ox 98.3 F 145 H 18 111/65 98 01/21/19 07:59 01/21/19 07:59 01/21/19 07:59 01/21/19 07:59 01/21/19 07:59 Intake & Output 01/20/19 01/21/19 01/22/19 06:59 06:59 06:59 Intake Total 353 1291 Output Total 475 Balance -122 1291 Weight 91.3 kg 90.5 kg General appearance: PRESENT: no acute distress, well-developed, well-nourished Head exam: PRESENT: atraumatic, normocephalic Eye exam: PRESENT: conjunctiva pink, EOMI, PERRLA. ABSENT: scleral icterus Ear exam: PRESENT: normal external ear exam Mouth exam: PRESENT: moist, tongue midline Neck exam: PRESENT: full ROM. ABSENT: carotid bruit, JVD, lymphadenopathy, thyromegaly Cardiovascular exam: PRESENT: irregular rhythm, +S1, +S2. ABSENT: diastolic murmur, rubs, systolic murmur Vascular exam: PRESENT: normal capillary refill GI/Abdominal exam: PRESENT: normal bowel sounds, soft. ABSENT: distended, guarding, mass, organolmegaly, rebound, tenderness Rectal exam: PRESENT: deferred Neurological exam: PRESENT: alert, awake, oriented to person, oriented to place, oriented to time, oriented to situation, CN II-XII grossly intact. ABSENT: motor sensory deficit Psychiatric exam: PRESENT: appropriate affect, normal mood. ABSENT: homicidal ideation, suicidal ideation Skin exam: PRESENT: dry, intact, warm. ABSENT: cyanosis, rash Results Laboratory Results: 01/20/19 04:37 01/20/19 04:37 01/19/19 01/19/19 09:58 09:58 Creatine Kinase 45 L CK-MB (CK-2) 0.90 Troponin I < 0.012 Impressions: Chest X-Ray 01/19/19 09:56 IMPRESSION: NO ACUTE RADIOGRAPHIC FINDING IN THE CHEST. Assessment & Plan - Diagnosis (1) Atrial fibrillation with rapid ventricular response Is this a current diagnosis for this admission?: Yes Plan: Continues to p.o. Butch's with the digoxin follow with the cardiology with ongoing problem with the recurrent (2) Hypertension Qualifiers: Hypertension type: essential hypertension Qualified Code(s): I10 - Essential (primary) hypertension Is this a current diagnosis for this admission?: Yes (3) BPH NOS w ur obs/LUTS Is this a current diagnosis for this admission?: Yes Plan: Currently all stable (4) Cervical radiculopathy due to degenerative joint disease of spine Is this a current diagnosis for this admission?: Yes (5) HLD (hyperlipidemia) Qualifiers: Hyperlipidemia type: pure hypercholesterolemia Qualified Code(s): E78.00 - Pure hypercholesterolemia, unspecified; E78.0 - Pure hypercholesterolemia Is this a current diagnosis for this admission?: Yes (6) Type 2 diabetes mellitus Qualifiers: Diabetes mellitus superintendent container terminal insulin use: without halfway use Diabetes mellitus complication status: with unspecified complications Qualified Code(s): E11.8 - Type 2 diabetes mellitus with unspecified complications Is this a current diagnosis for this admission?: Yes Plan: Continue sliding scale - Time Time Spent with patient: 15-24 minutes Medications reviewed and adjusted accordingly: Yes Anticipated discharge: Home Within: Other - Plan Summary Plan Summary: Continues to current medications discussed with the cardiology
[2019-01-21] MEDS: APIXABAN 5 MG TABLET PO SCH ×2 (10:32→17:40)
[2019-01-21] MEDS: PIOGLITAZONE HCL 15 MG TABLET PO SCH (10:32)
[2019-01-21] MEDS: LISINOPRIL 5 MG TABLET PO SCH (10:32)
[2019-01-21] MEDS: TAMSULOSIN HCL 0.4 MG CAP.SR.24H PO SCH (10:35)
[2019-01-21] MEDS: DUTASTERIDE 0.5 MG CAPSULE PO SCH (10:36)
[2019-01-21] MEDS ORDERED: DIGOXIN 0.125 MG TABLET PO SCH (11:45)
[2019-01-21] MEDS: DILTIAZEM HCL 180 MG CAPSULE.CR PO SCH ×2 (12:43→21:52)
[2019-01-21] MEDS: DIGOXIN 0.25 MG TABLET PO SCH (12:43)
--- NOTE | 2019-01-21 14:59 | PDOC CONSULTATION ---
Consultation-Blank Consultation: CARDIOLOGY CONSULTATION by Dr. Paula Alfaro on 01/21/2019. Patient seen at 11 AM on 01/21/2019. Note 60 minutes spent on this patient with more than 50% of time spent in direct patient care. REASON FOR CONSULTATION: Is atrial flutter with rapid ventricular response. HISTORY PRESENT ILLNESS: Chart reviewed. Patient was admitted on 01/19/19 for symptoms of shortness of breath palpitations and vague left-sided chest pain. He was found to be in atrial fibrillation with rapid ventricular response and was placed on IV Cardizem drip. Subsequently his heart rate was controlled and the patient's Cardizem drip was stopped yesterday and the patient was placed on oral Cardizem at 90 mg p.o. every 6 hours. Sometime last night he went into atrial flutter with rapid ventricular response. The patient this morning complains of shortness of breath and flutter with a heart rate in the 140s. The patient was given extra dose of digoxin and his Cardizem was increased. Subsequently the patient converted to sinus rhythm. Of note at present the patient has no chest pain or discomfort. There is no shortness of breath. There is no PND orthopnea or leg edema. On the monitor there is no ventricular arrhythmia seen. There is no TIA CVA symptoms. The patient was admitted here in October of 2018 with atrial fibrillation, new onset,. At that time his heart rate was controlled and the patient converted to sinus rhythm. The patient was discharged home on beta-blockers, and Eliquis. The patient states is due to change in his insurance he ran out of medication sometime in December and since December has not been on any medications. PAST MEDICAL HISTORY: Patient has a history of hypertension. He has had a prior history of atrial fibrillation. This was paroxysmal as during that admission the patient, the patient converted to sinus rhythm, and stop taking his medications, now admitted with atrial flutter with rapid ventricular response this converted to sinus rhythm today. Hence the patient has proximal atrial fibrillation/paroxysmal atrial flutter. He also has a history of diabetes mellitus [id number]. He has no history of coronary artery disease or [place] or anginal symptoms. He also has a history of hyperlipidemia. There is no history of COPD or asthma. There is no history of TIA or CVA. There is no history of chronic kidney disease. He also has a history of benign prostatic hypertrophy but with no symptoms of urinary tract obstruction. He has no history of thyroid disease. There is no history of anxiety or depression PAST SURGICAL HISTORY: The patient has not had any surgeries. ALLERGIES: The patient has no known allergies. SOCIAL HISTORY: The patient does not smoke. There is no history of EtOH abuse. DISPOSITION: The patient is a full code. He states his daughter/son are both his surrogate healthcare decision makers. REVIEW SYSTEMS: The patient denies any fever chills or rigors, denies generalized weakness but does have some fatigue. HEAD: No history of headaches or migraines or head injury. EYES: There is no amblyopia diplopia, and no amaurosis fugax. EARS: No hearing loss, no tinnitus or vertigo. NOSE: No history of hayfever, no nosebleeds, and no nasal polyps. MOUTH: No altered taste sensation, no ulcers in the mouth and no bleeding from the gums. THROAT: No odynophagia or dysphagia, no recurrent sore throats. SKIN: There is no pruritus and no yellowish discoloration of the skin, and no eczema. LUNGS: No history of asthma COPD. No history of sleep apnea. No history of pulmonary embolism. No pleuritic chest pain no hemoptysis. No wheezing or cough or sputum production. No symptoms of upper or lower respiratory tract infection HEART: History of paroxysmal atrial fibrillation, and now this admission is paroxysmal atrial flutter. He has a history of hypertension hyperlipidemia. The patient has no history of coronary artery disease, [place] or anginal symptom. The patient vague left-sided chest pain and shortness of breath when he had a rapid palpitations, when he was in atrial fibrillation on admission. This is resolved. No evidence of [place]. He denies any PND orthopnea or leg edema. No syncope or sudden . There is no history of congenital heart disease or rheumatic heart disease. GI: No history of fatty food intolerance no abdominal pain, no cirrhosis. No history of GERD, or peptic ulcer disease. No GI bleed. No altered bowel movements. ENDOCRINE: No history of diabetes mellitus or thyroid disease. No history of polydipsia polyuria, no history of heat or cold intolerance. MUSCULOSKELETAL: Denies arthritis or collagen vascular disease. RENAL: He has symptoms of enlarged prostate, controlled with medication. No history of chronic kidney disease. No symptoms of UTI. No history of hematuria pyuria or dysuria. METABOLIC: History of morbid obesity present and history of hyperlipidemia. No history of gout. 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 No history of migraines or seizures. No history of gait imbalance. PSYCHIATRIC: No history of anxiety or depression. No history of suicidal ideation or homicidal ideation. VASCULAR: No history of calf or buttock claudication, no history of DVT. HEMATOLOGICAL: No history of bleeding diathesis or or clotting disorders, and no history of anemia. PHYSICAL EXAMINATION: The patient is well-built and well-nourished. At present in no acute distress. He is well-groomed. Selected Entries 01/21/19 01/21/19 07:59 11:16 Temperature 98.3 F 98.1 F Temperature Oral Oral Source Pulse Rate 145 H 81 Respiratory 18 18 Rate Blood Pressure 111/65 121/67 Blood Pressure 80 85 Mean BP Location Left Arm Right Arm BP Position Supine Supine O2 Sat by Pulse 98 98 Oximetry Oxygen Delivery Room Air Room Air Method HEAD: Atraumatic, normocephalic. EYES: Pupils equal round and reactive to light, extraocular movements intact, sclera anicteric, conjunctiva are normal. ENT: TMs normal, nares patent, oropharynx clear without exudates. Moist mucous membranes. NECK: Normal range of motion, supple without lymphadenopathy or JVD. Carotids are equal there is no bruits. There is no thyromegaly. There is no accessory muscles of respiration in use. Trachea central LUNGS: Breath sounds clear to auscultation bilaterally and equal. No wheezes rales or rhonchi. On palpation there is no chest wall tenderness. HEART: S1-S2 is heard. S1 is of normal intensity. There is no S3 gallop. There is no S4 gallop. There is systolic murmur left sternal border and apex without radiation. There is no rub.. ABDOMEN: Soft, nontender, normoactive bowel sounds. There is no hepatosplenic megaly no guarding, no rebound. No masses appreciated. EXTREMITIES: Normal range of motion, no pitting or edema. No clubbing or cyanosis. Femorals are well felt. There is no femoral bruits. Leg pulses are well felt. There is no DVT or cellulitis. There is no calf tenderness NEUROLOGICAL: Cranial nerves II through XII grossly intact. Normal speech, normal gait. The patient is awake alert oriented x3 with no focal deficits. PSYCH: Normal mood, normal affect. The patient judgment and insight are intact SKIN: Warm, Dry, normal turgor, no rashes or lesions noted. There is no petechia or ecchymosis. Current Medications Generic Name Dose Route Start Last Admin Trade Name Freq PRN Reason Stop Dose Admin Apixaban 5 mg 01/19/19 20:00 01/21/19 10:32 Eliquis 5 Mg Tablet PO 02/18/19 19:59 5 mg BID RANCHO Administration Atorvastatin Calcium 10 mg 01/19/19 22:00 01/20/19 21:09 Lipitor 10 Mg Tablet PO 02/18/19 21:59 10 mg QHS RANCHO Administration Dextrose 12.5 gm 01/19/19 19:22 Dextrose Inj 50% Syringe (25 Gm/50 Ml) IV 02/18/19 19:21 PRN PRN FOR BG 50-69 IN ALERT PATIENT Protocol Dextrose 25 gm 01/19/19 19:22 Dextrose Inj 50% Syringe (25 Gm/50 Ml) IV 02/18/19 19:21 PRN PRN PER PROTOCOL Protocol Digoxin 0.25 mg 01/21/19 12:00 01/21/19 12:43 Lanoxin 0.25 Mg Tablet PO 02/20/19 11:59 0.25 mg DAILY RANCHO Administration Diltiazem HCl 180 mg 01/21/19 12:00 01/21/19 12:43 Cardizem Cd 180 Mg Capsule PO 02/20/19 11:59 180 mg Q12 RANCHO Administration Dutasteride 0.5 mg 01/21/19 10:00 01/21/19 10:36 Avodart Lf 0.5 Mg Capsule PO 02/20/19 09:59 0.5 mg DAILY RANCHO Administration Glucagon 1 mg 01/19/19 19:22 Glucagen Inj 1 Mg Vial IM 02/18/19 19:21 PRN PRN Evaluate for BG < 70 Protocol Glucose 15 gm 01/19/19 19:22 Glutose 40% Gel 15 Gm Tube PO 02/18/19 19:21 PRN PRN FOR BG 50-69 IN ALERT PATIENT Protocol Glucose 30 gm 01/19/19 19:22 Glutose 40% Gel 15 Gm Tube PO 02/18/19 19:21 PRN PRN FOR BG < 50 IN ALERT PATIENT Protocol Insulin Human Lispro 0 - 12 unit 01/19/19 22:00 01/21/19 11:31 Humalog Insulin 100 Unit/1 Ml 3 Ml Vial SUBCUT 02/18/19 21:59 Not Given ACHS [facility] Protocol Lansoprazole 30 mg 01/20/19 06:00 01/21/19 06:01 Prevacid 30 Mg Odt Tablet PO 02/19/19 05:59 30 mg Q6AM RANCHO Administration Lisinopril 5 mg 01/20/19 10:00 01/21/19 10:32 Prinivil 5 Mg Tablet PO 02/19/19 09:59 5 mg DAILY RANCHO Administration Metformin HCl 1,000 mg 01/20/19 08:00 01/21/19 08:06 Glucophage 500 Mg Tablet PO 02/19/19 07:59 1,000 mg BIDACBS RANCHO Administration Pioglitazone HCl 15 mg 01/20/19 10:00 01/21/19 10:32 Actos 15 Mg Tablet PO 02/19/19 09:59 15 mg DAILY RANCHO Administration Tamsulosin HCl 0.4 mg 01/21/19 10:00 01/21/19 10:35 Flomax 0.4 Mg Cap.Sr PO 02/20/19 09:59 0.4 mg DAILY RANCHO Administration Discontinued Medications Generic Name Dose Route Start Last Admin Trade Name Freq PRN Reason Stop Dose Admin Digoxin 0.125 mg 01/20/19 10:00 01/20/19 10:22 Lanoxin 0.125 Mg Tablet PO 02/19/19 09:59 0.125 mg DAILY RANCHO Administration Digoxin Confirm 01/21/19 07:55 01/21/19 08:00 Lanoxin Inj 0.5 Mg/2 Ml Ampule Administered 01/21/19 07:56 0.25 mg Dose Administration 0.5 mg .ROUTE .STK-MED ONE Digoxin Confirm 01/21/19 08:40 01/21/19 08:44 Lanoxin Inj 0.5 Mg/2 Ml Ampule Administered 01/21/19 08:41 0.125 mg Dose Administration 0.5 mg .ROUTE .STK-MED ONE Diltiazem HCl 10 mg 01/19/19 10:22 01/19/19 10:32 Cardizem Inj 25 Mg/5 Ml Vial IV 01/19/19 10:23 10 mg NOW ONE Administration Diltiazem HCl 90 mg 01/20/19 16:00 01/21/19 08:06 Cardizem 90 Mg Tablet PO 02/19/19 15:59 90 mg Q6A RANCHO Administration Diltiazem HCl 125 mg in 125 mls @ 0 mls/hr 01/19/19 11:13 01/20/19 13:16 Cardizem Rtu Inj 125 Mg-D5w 125 Ml Premix IV 02/18/19 11:12 10 mls/hr CONTINUOUS PRN 10 mls/hr THIS MED IS NOT "PRN" Administration Protocol Titrate Diltiazem HCl Confirm 01/20/19 13:00 01/20/19 14:15 Cardizem Rtu Inj 125 Mg-D5w 125 Ml Premix Administered 01/20/19 13:01 Not Given Dose 125 mg in 125 mls @ ud IV .STK-MED ONE Metoprolol Tartrate 50 mg 01/19/19 20:00 01/20/19 10:18 Lopressor 50 Mg Tablet PO 02/18/19 19:59 50 mg Q12 RANCHO Administration Patient Own Medication 1 cap 01/20/19 10:00 Dutasteride/Tamsulosin Hcl [Ashley 0.5-0.4 Mg Capsule] PO 02/19/19 09:59 .DAILY RANCHO Dutasteride/Tamsulosin HCl [Ashley 0.5-0.4 mg Capsule] 1 cap PO DAILY 02/07/17 Pioglitazone HCl [Actos 15 mg Tablet] 15 mg PO DAILY 02/07/17 Atorvastatin Calcium [Lipitor 10 mg Tablet] 10 mg PO QHS 11/08/18 Metformin HCl [Glucophage 500 mg Tablet] 1,000 mg PO BIDACBS 11/08/18 Digoxin [Lanoxin 0.125 mg Tablet] 0.125 mg PO DAILY 01/19/19 Flu Vacc [id number](65Yr Up)/Pf [Fluzone High-Dose Syr] 0.5 ml IM .RECEIVED 09/04/18 MDD 09/04/18 01/19/19 Metoprolol Tartrate [Lopressor 50 mg Tablet] 50 mg PO Q12 01/19/19 Labs- All tests 24 hr 01/20/19 01/20/19 01/21/19 15:25 21:12 06:28 POC Glucose 148 H 102 110 01/21/19 11:14 POC Glucose 101 Labs- Entire Visit 01/19/19 01/19/19 01/19/19 09:56 09:56 09:58 WBC 9.9 RBC 5.57 H Hgb 15.9 Hct 47.1 MCV 85 MCH 28.6 MCHC 33.8 RDW 14.7 H Plt Count 302 Seg Neutrophils % 75.3 Lymphocytes % 15.3 Monocytes % 7.7 Eosinophils % 0.8 Basophils % 0.9 Absolute Neutrophils 7.5 Absolute Lymphocytes 1.5 Absolute Monocytes 0.8 Absolute Eosinophils 0.1 Absolute Basophils 0.1 Sodium Potassium Chloride Carbon Dioxide Anion Gap BUN Creatinine Est GFR ( Amer) Est GFR (Non-Af Amer) Glucose POC Glucose Hemoglobin A1c % Calcium Total Bilirubin Direct Bilirubin Neonat Total Bilirubin Neonat Direct Bilirubin Neonat Indirect Bili AST ALT Alkaline Phosphatase Creatine Kinase CK-MB (CK-2) Troponin I Total Protein Albumin Triglycerides Cholesterol LDL Cholesterol Direct VLDL Cholesterol HDL Cholesterol TSH 1.36 Free T4 1.09 Free T3 pg/mL 3.27 Digoxin < 0.40 L 01/19/19 01/19/19 01/19/19 09:58 09:58 15:39 WBC RBC Hgb Hct MCV MCH MCHC RDW Plt Count Seg Neutrophils % Lymphocytes % Monocytes % Eosinophils % Basophils % Absolute Neutrophils Absolute Lymphocytes Absolute Monocytes Absolute Eosinophils Absolute Basophils Sodium 141.6 Potassium 4.8 Chloride 104 Carbon Dioxide 26 Anion Gap 12 BUN 18 Creatinine 0.82 Est GFR ( Amer) > 60 Est GFR (Non-Af Amer) > 60 Glucose 129 H POC Glucose 99 Hemoglobin A1c % Calcium 9.8 Total Bilirubin 0.7 Direct Bilirubin 0.2 Neonat Total Bilirubin Not Reportable Neonat Direct Bilirubin Not Reportable Neonat Indirect Bili Not Reportable AST 28 ALT 23 Alkaline Phosphatase 62 Creatine Kinase 45 L CK-MB (CK-2) 0.90 Troponin I < 0.012 Total Protein 7.5 Albumin 4.4 Triglycerides Cholesterol LDL Cholesterol Direct VLDL Cholesterol HDL Cholesterol TSH Free T4 Free T3 pg/mL Digoxin 01/19/19 01/20/19 01/20/19 22:13 04:37 04:37 WBC 8.0 RBC 5.20 Hgb 14.8 Hct 43.1 MCV 83 MCH 28.5 MCHC 34.3 RDW 14.7 H Plt Count 259 Seg Neutrophils % 64.5 Lymphocytes % 23.5 Monocytes % 9.1 Eosinophils % 1.8 Basophils % 1.1 Absolute Neutrophils 5.1 Absolute Lymphocytes 1.9 Absolute Monocytes 0.7 Absolute Eosinophils 0.1 Absolute Basophils 0.1 Sodium 137.1 Potassium 4.3 Chloride 104 Carbon Dioxide 25 Anion Gap 8 BUN 19 Creatinine 0.75 Est GFR ( Amer) > 60 Est GFR (Non-Af Amer) > 60 Glucose 112 H POC Glucose 123 H Hemoglobin A1c % Calcium 9.3 Total Bilirubin 0.5 Direct Bilirubin 0.1 Neonat Total Bilirubin Not Reportable Neonat Direct Bilirubin Not Reportable Neonat Indirect Bili Not Reportable AST 17 ALT 30 Alkaline Phosphatase 61 Creatine Kinase CK-MB (CK-2) Troponin I Total Protein 6.1 L Albumin 3.6 Triglycerides 105 Cholesterol 103.65 LDL Cholesterol Direct 62 VLDL Cholesterol 21.0 HDL Cholesterol 33 L TSH Free T4 Free T3 pg/mL Digoxin 01/20/19 01/20/19 01/20/19 04:37 07:35 11:17 WBC RBC Hgb Hct MCV MCH MCHC RDW Plt Count Seg Neutrophils % Lymphocytes % Monocytes % Eosinophils % Basophils % Absolute Neutrophils Absolute Lymphocytes Absolute Monocytes Absolute Eosinophils Absolute Basophils Sodium Potassium Chloride Carbon Dioxide Anion Gap BUN Creatinine Est GFR ( Amer) Est GFR (Non-Af Amer) Glucose POC Glucose 127 H 140 H Hemoglobin A1c % 6.5 H Calcium Total Bilirubin Direct Bilirubin Neonat Total Bilirubin Neonat Direct Bilirubin Neonat Indirect Bili AST ALT Alkaline Phosphatase Creatine Kinase CK-MB (CK-2) Troponin I Total Protein Albumin Triglycerides Cholesterol LDL Cholesterol Direct VLDL Cholesterol HDL Cholesterol TSH Free T4 Free T3 pg/mL Digoxin 01/20/19 01/20/19 01/21/19 15:25 21:12 06:28 WBC RBC Hgb Hct MCV MCH MCHC RDW Plt Count Seg Neutrophils % Lymphocytes % Monocytes % Eosinophils % Basophils % Absolute Neutrophils Absolute Lymphocytes Absolute Monocytes Absolute Eosinophils Absolute Basophils Sodium Potassium Chloride Carbon Dioxide Anion Gap BUN Creatinine Est GFR ( Amer) Est GFR (Non-Af Amer) Glucose POC Glucose 148 H 102 110 Hemoglobin A1c % Calcium Total Bilirubin Direct Bilirubin Neonat Total Bilirubin Neonat Direct Bilirubin Neonat Indirect Bili AST ALT Alkaline Phosphatase Creatine Kinase CK-MB (CK-2) Troponin I Total Protein Albumin Triglycerides Cholesterol LDL Cholesterol Direct VLDL Cholesterol HDL Cholesterol TSH Free T4 Free T3 pg/mL Digoxin 01/21/19 11:14 WBC RBC Hgb Hct MCV MCH MCHC RDW Plt Count Seg Neutrophils % Lymphocytes % Monocytes % Eosinophils % Basophils % Absolute Neutrophils Absolute Lymphocytes Absolute Monocytes Absolute Eosinophils Absolute Basophils Sodium Potassium Chloride Carbon Dioxide Anion Gap BUN Creatinine Est GFR ( Amer) Est GFR (Non-Af Amer) Glucose POC Glucose 101 Hemoglobin A1c % Calcium Total Bilirubin Direct Bilirubin Neonat Total Bilirubin Neonat Direct Bilirubin Neonat Indirect Bili AST ALT Alkaline Phosphatase Creatine Kinase CK-MB (CK-2) Troponin I Total Protein Albumin Triglycerides Cholesterol LDL Cholesterol Direct VLDL Cholesterol HDL Cholesterol TSH Free T4 Free T3 pg/mL Digoxin Chest X-Ray 01/19/19 09:56 IMPRESSION: NO ACUTE RADIOGRAPHIC FINDING IN THE CHEST. IMPRESSION/RECOMMENDATION: 1. Paroxysmal atrial for flutter.: This may be due to the patient having stopped his medication. Continue the patient Cardizem CD at 180 mg p.o. every 12 hours. Continue patient digoxin. Note that the patient's corrected chads vas 2 score is 3, and hence chronic anticoagulation is indicated. Agree with continuing the patient on Eliquis. 2. Hypertension well controlled on current medication. Continue the same 3. Diabetes mellitus: Type II [id number]. Continue current medication. Will discuss with Dr. Bledsoe to see if the patient can come off Actos since this can cause volume overload, and switch to another oral antidiabetic medication. 4. Hyperlipidemia: Continue statin. 5. History of benign prostatic hypertrophy without lower urinary tract symptoms. 2. CAD risk factors are age, hypertension, diabetes mellitus, and hyperlipidemia: Later as an outpatient will get a IV Lexiscan or Ranexa is Cardiolite stress test. Also will get an outpatient echocardiogram. 7. Systolic murmur: Doubt any significant regurgitant or stenotic lesions by physical exam, but will check an echo as an outpatient. Medications reviewed. Medications changed. Management plan discussed with attending physician covering Dr. Bledsoe. Medical decision making is of high complexity. 60 minutes spent on this patient, with more than 50% of time spent in direct patient care. Will follow.
--- NOTE | 2019-01-21 16:39 | EKG REPORT ---
SEVERITY:- ABNORMAL ECG - SINUS RHYTHM VENTRICULAR PREMATURE COMPLEX LEFT ANTERIOR FASCICULAR BLOCK BORDERLINE PROLONGED QT INTERVAL : Confirmed by: Angela Laurent 21-Jan-2019 16:38:20
[2019-01-21] MEDS: ATORVASTATIN CALCIUM 10 MG TABLET PO SCH (21:52)
[2019-01-22] MEDS: LANSOPRAZOLE 30 MG TAB.RAP.DR PO SCH (05:44)
[2019-01-22] MEDS: INSULIN LISPRO 100 UNIT/ML 3 ML VIAL SUBCUT SCH ×4 (08:22→21:47)
[2019-01-22] MEDS: METFORMIN HCL 500 MG TABLET PO SCH ×2 (08:24→17:02)
[2019-01-22] MEDS: DUTASTERIDE 0.5 MG CAPSULE PO SCH (09:41)
[2019-01-22] MEDS: DIGOXIN 0.25 MG TABLET PO SCH (09:41)
[2019-01-22] MEDS: APIXABAN 5 MG TABLET PO SCH ×2 (09:42→17:02)
[2019-01-22] MEDS: LISINOPRIL 5 MG TABLET PO SCH (09:42)
[2019-01-22] MEDS: DILTIAZEM HCL 180 MG CAPSULE.CR PO SCH ×2 (09:42→21:43)
[2019-01-22] MEDS: PIOGLITAZONE HCL 15 MG TABLET PO SCH (09:42)
[2019-01-22] MEDS: TAMSULOSIN HCL 0.4 MG CAP.SR.24H PO SCH (09:42)
--- NOTE | 2019-01-22 10:11 | PDOC PROGRESS REPORT ---
Subjective Progress Note for:: 01/22/19 Subjective:: Patient is currently doing well Patient heart rate is currently under control currently getting the Cardizem CD twice a day Patient also on Eliquis Patient seen by Dr. Hair Reason For Visit: CHRONIC ATRIAL FIBRILLATION WITH RAPID VENTRICULAR Physical Exam Vital Signs: Temp Pulse Resp BP Pulse Ox 98.1 F 83 18 134/58 H 96 01/22/19 08:23 01/22/19 08:23 01/22/19 08:23 01/22/19 08:23 01/22/19 08:23 Intake & Output 01/21/19 01/22/19 01/23/19 06:59 06:59 06:59 Intake Total 1291 1564 Balance 1291 1564 Weight 90.5 kg 90.5 kg General appearance: PRESENT: no acute distress, well-developed, well-nourished Head exam: PRESENT: atraumatic, normocephalic Eye exam: PRESENT: conjunctiva pink, EOMI, PERRLA. ABSENT: scleral icterus Ear exam: PRESENT: normal external ear exam Mouth exam: PRESENT: moist, tongue midline Neck exam: PRESENT: full ROM. ABSENT: carotid bruit, JVD, lymphadenopathy, thyromegaly Respiratory exam: PRESENT: clear to auscultation freda Cardiovascular exam: PRESENT: irregular rhythm. ABSENT: diastolic murmur, rubs, systolic murmur Vascular exam: PRESENT: normal capillary refill GI/Abdominal exam: PRESENT: normal bowel sounds, soft. ABSENT: distended, guarding, mass, organolmegaly, rebound, tenderness Rectal exam: PRESENT: deferred Musculoskeletal exam: PRESENT: ambulatory Neurological exam: PRESENT: alert, awake, oriented to person, oriented to place, oriented to time, oriented to situation, CN II-XII grossly intact. ABSENT: motor sensory deficit Psychiatric exam: PRESENT: appropriate affect, normal mood. ABSENT: homicidal ideation, suicidal ideation Skin exam: PRESENT: dry, intact, warm. ABSENT: cyanosis, rash Results Laboratory Results: 01/20/19 04:37 01/20/19 04:37 01/19/19 01/19/19 09:58 09:58 Creatine Kinase 45 L CK-MB (CK-2) 0.90 Troponin I < 0.012 Impressions: Chest X-Ray 01/19/19 09:56 IMPRESSION: NO ACUTE RADIOGRAPHIC FINDING IN THE CHEST. Assessment & Plan - Diagnosis (1) Atrial fibrillation with rapid ventricular response Is this a current diagnosis for this admission?: Yes Plan: Continues to Cardizem Discussed with the patient and the nursing staff is to walk around in the hallway (2) Hypertension Qualifiers: Hypertension type: essential hypertension Qualified Code(s): I10 - Essential (primary) hypertension Is this a current diagnosis for this admission?: Yes (3) BPH NOS w ur obs/LUTS Is this a current diagnosis for this admission?: Yes Plan: Currently all stable (4) Cervical radiculopathy due to degenerative joint disease of spine Is this a current diagnosis for this admission?: Yes (5) HLD (hyperlipidemia) Qualifiers: Hyperlipidemia type: pure hypercholesterolemia Qualified Code(s): E78.00 - Pure hypercholesterolemia, unspecified; E78.0 - Pure hypercholesterolemia Is this a current diagnosis for this admission?: Yes (6) Type 2 diabetes mellitus Qualifiers: Diabetes mellitus computer terminal operator insulin use: without computer terminal operator use Diabetes mellitus complication status: with unspecified complications Qualified Code(s): E11.8 - Type 2 diabetes mellitus with unspecified complications Is this a current diagnosis for this admission?: Yes Plan: Continue sliding scale - Time Time Spent with patient: 15-24 minutes Medications reviewed and adjusted accordingly: Yes Anticipated discharge: Home Within: within 24 hours - Plan Summary Plan Summary: Patient is currently doing well Ambulate the patient the patient is currently doing well patients can be discharged the next 24 hours
--- NOTE | 2019-01-22 19:41 | Progress Note ---
Provider Note Provider Note: CARDIOLOGY PROGRESS NOTE by Dr. Paula Alfaro on 01/22/2019. OBJECTIVE: The patient remains in sinus rhythm with no recurrence of atrial flutter. He denies any chest pain or discomfort. There is no PND orthopnea or leg edema. He denies any palpitations or shortness of breath. There is no ventricular arrhythmia seen on the monitor. There is no bleeding on Eliquis. There is no TIA or CVA symptoms. ALL physical EXAMINATION: The patient is well-built and well-nourished. In no acute distress. Selected Entries 01/22/19 08:23 Temperature 98.1 F Temperature Oral Source Pulse Rate 83 Respiratory 18 Rate Blood Pressure 134/58 H Blood Pressure 83 Mean BP Location Left Arm BP Position Supine O2 Sat by Pulse 96 Oximetry Oxygen Delivery Room Air Method HEAD: Atraumatic, normocephalic. EYES: Pupils equal round and reactive to light, extraocular movements intact, sclera anicteric, conjunctiva are normal. ENT: TMs normal, nares patent, oropharynx clear without exudates. Moist mucous membranes. NECK: Normal range of motion, supple without lymphadenopathy or JVD. Carotids are equal there is no bruits. There is no thyromegaly. There is no accessory muscles of respiration in use. Trachea central LUNGS: Breath sounds clear to auscultation bilaterally and equal. No wheezes rales or rhonchi. On palpation there is no chest wall tenderness. HEART: S1-S2 is heard. S1 is of normal intensity. There is no S3 gallop. There is no S4 gallop. There is systolic murmur left sternal border and apex without radiation. There is no rub.. ABDOMEN: Soft, nontender, normoactive bowel sounds. There is no hepatosplenic megaly no guarding, no rebound. No masses appreciated. EXTREMITIES: Normal range of motion, no pitting or edema. No clubbing or cyanosis. Femorals are well felt. There is no femoral bruits. Leg pulses are well felt. There is no DVT or cellulitis. There is no calf tenderness NEUROLOGICAL: Cranial nerves II through XII grossly intact. Normal speech, normal gait. The patient is awake alert oriented x3 with no focal deficits. PSYCH: Normal mood, normal affect. The patient judgment and insight are intact SKIN: Warm, Dry, normal turgor, no rashes or lesions noted. There is no petechia or ecchymosis. 01/22/19 01/22/19 07:41 11:34 POC Glucose 140 H 83 IMPRESSION/RECOMMENDATION: 1. Paroxysmal atrial for flutter.: This may be due to the patient having stopped his medication. Continue the patient Cardizem CD at 180 mg p.o. every 12 hours. Continue patient digoxin. Note that the patient's corrected chads vas 2 score is 3, and hence chronic anticoagulation is indicated. Agree with continuing the patient on Eliquis.. Will get an outpatient 30-day event monitor. 2. Hypertension well controlled on current medication. Continue 3. Diabetes mellitus: Type II [id number]-elnghseya. Continue current medication. Will discuss with Dr. Bledsoe to see if the patient can come off Actos since this can cause volume overload, and switch to another oral antidiabetic medication. 4. Hyperlipidemia: Continue statin. 5. History of benign prostatic hypertrophy without lower urinary tract symptoms. 2. CAD risk factors are age, hypertension, diabetes mellitus, and hyperlipidemia: Later as an outpatient will get a IV Lexiscan or Ranexa is Cardiolite stress test. Also will get an outpatient echocardiogram. 7. Systolic murmur: Doubt any significant regurgitant or stenotic lesions by physical exam, but will check an echo as an outpatient. Medications reviewed. Will recommend continue the patient on atorvastatin 10 mg p.o. daily, Cardizem CD 180 mg p.o. twice daily, digoxin 0.25 mg p.o. daily, lisinopril 5 mg p.o. daily. And Eliquis 5 mg p.o. twice daily. Continue his antidiabetic medications also. Management plan discussed with attending physician covering Dr. Bledsoe. Medical decision making is of moderate complexity. 40 minutes spent on this patient with more than 50% of time spent in direct patient care will sign off. Patient desires to follow-up with me in the office contact numbers given.
[2019-01-22] MEDS: ATORVASTATIN CALCIUM 10 MG TABLET PO SCH (21:43)
[2019-01-23] MEDS: LANSOPRAZOLE 30 MG TAB.RAP.DR PO SCH (05:19)
[2019-01-23] MEDS: INSULIN LISPRO 100 UNIT/ML 3 ML VIAL SUBCUT SCH (08:05)
[2019-01-23] MEDS: METFORMIN HCL 500 MG TABLET PO SCH (08:26)
[2019-01-23 08:27] VITALS: BP 127/64
--- NOTE | 2019-01-23 08:43 | PDOC DISCHARGE SUMMARY ---
General - Admit/Disc Date/PCP Admission Date/Primary Care Provider: 01/19/19 11:55 DOROTHY TASHI Discharge Date: 01/23/19 - Discharge Diagnosis (1) Chronic atrial fibrillation with rapid ventricular response Is this a current diagnosis for this admission?: Yes (2) Type 2 diabetes mellitus Is this a current diagnosis for this admission?: Yes (3) Hypertension Is this a current diagnosis for this admission?: Yes (4) HLD (hyperlipidemia) Is this a current diagnosis for this admission?: Yes (5) BPH NOS w ur obs/LUTS Is this a current diagnosis for this admission?: Yes (6) Cervical radiculopathy due to degenerative joint disease of spine Is this a current diagnosis for this admission?: Yes (7) Osteoarthritis involving multiple joints on both sides of body Is this a current diagnosis for this admission?: Yes - Additional Information Discharge Diet: Cardiac, Diabetic Discharge Activity: Activity As Tolerated Prescriptions: Diltiazem HCl [Cardizem Cd 180 mg Capsule] 180 mg PO Q12 #60 capsule.cr Empagliflozin [Jardiance] 10 mg PO DAILY #30 tablet Home Medications: Dutasteride/Tamsulosin HCl [Ashley 0.5-0.4 mg Capsule] 1 cap PO DAILY 02/07/17 Pioglitazone HCl [Actos 15 mg Tablet] 15 mg PO DAILY 02/07/17 Atorvastatin Calcium [Lipitor 10 mg Tablet] 10 mg PO QHS 11/08/18 Metformin HCl [Glucophage 500 mg Tablet] 1,000 mg PO BIDACBS 11/08/18 Lisinopril [Prinivil 5 mg Tablet] 5 mg PO DAILY #30 tablet 11/14/18 Digoxin [Lanoxin 0.125 mg Tablet] 0.125 mg PO DAILY 01/19/19 Flu Vacc [id number](65Yr Up)/Pf [Fluzone High-Dose Syr] 0.5 ml IM .RECEIVED 09/04/18 MDD 09/04/18 01/19/19 Diltiazem HCl [Cardizem Cd 180 mg Capsule] 180 mg PO Q12 #60 capsule.cr 01/23/19 Empagliflozin [Jardiance] 10 mg PO DAILY #30 tablet 01/23/19 History of Present Illness Patient complains of: Shortness of breath History of Present Illness: ROSCOE HOWELL is a 73 year old male known to my practice who presented to the ED with complain of shortness of breath with nonspecific left sided chest pain. Patient reported onset of symptoms earlier today but hasd experienced in termittent palpitation over last couple of days. he is in the process of moving into an apartment and his mother is currently sick in [place] which bother the patient. He reported compliance with his prescribed medication. He denied excessive caffeine ingestion, OTC decongestant usage, cigarette smoking, alcohol or illicit drug usage. He denied any fever or chills. His initial ED evaluation was significant for atrial fibrillation with rapid ventricular rate. He was started on IV Cardizem drip and advised admission for further evaluation and management. His morbidities include diabetes mellitus type 2, hypertension, hyperlipidemia, Osteoarthritis, Cervical spine degenerative disc disease with radiculopathy, and Benign Prostate Hyperplasia with LUTS. Hospital Course Hospital Course: Patient was admitted for shortness of breath and chronic atrial fibrillation with rapid ventricular rate. He was managed with IV Cardizem with good response. His Metoprolol was discontinued and was transition to oral cardizem therapy. He was seen in consultation by Dr Hair, research home economist, who agreed with treatment. He was taken off Actos due to possible predisposition to fluid retention. He was started on Jardiance for management of his diabetes mellitus type 2. He will be discharged home today with follow up appointment with Dr. Hair and myself as instructed upon discharge. Physical Exam Vital Signs: Temp Pulse Resp BP Pulse Ox 98.4 F 75 16 127/64 H 96 01/23/19 07:29 01/23/19 07:29 01/23/19 07:29 01/23/19 07:29 01/23/19 07:29 Intake & Output 01/22/19 01/23/19 01/24/19 06:59 06:59 06:59 Intake Total 1564 1006 Balance 1564 1006 Weight 90.5 kg 89.8 kg Physical Exam: General appearance: PRESENT: no acute distress, well-developed, well-nourished Head exam: PRESENT: atraumatic, normocephalic Ear exam: PRESENT: normal external ear exam Mouth exam: PRESENT: moist Cardiovascular exam: PRESENT: irregular rhythm, +S1, +S2. ABSENT: diastolic murmur, systolic murmur Vascular exam: PRESENT: normal capillary refill, pallor GI/Abdominal exam: PRESENT: normal bowel sounds, soft. ABSENT: distended, guarding, mass, organomegaly, rebound, tenderness Extremities exam: ABSENT: pedal edema Neurological exam: PRESENT: alert, awake, oriented to person, oriented to place, oriented to time, oriented to situation, CN II-XII grossly intact. ABSENT: motor sensory deficit Psychiatric exam: PRESENT: appropriate affect, normal mood. ABSENT: homicidal ideation, suicidal ideation Skin exam: PRESENT: dry, warm Results Laboratory Results: 01/20/19 04:37 01/20/19 04:37 01/19/19 01/19/19 09:58 09:58 Creatine Kinase 45 L CK-MB (CK-2) 0.90 Troponin I < 0.012 Impressions: Chest X-Ray 01/19/19 09:56 IMPRESSION: NO ACUTE RADIOGRAPHIC FINDING IN THE CHEST. Qualifiers - * PATIENT BEING DISCHARGED WITH ANY OF THE FOLLOWING DIAGNOSIS: No Plan Discharge Plan: D/C home today. Follow up in the office as instructed upon discharge.
[2019-01-23] MEDS: DUTASTERIDE 0.5 MG CAPSULE PO SCH (09:26)
[2019-01-23] MEDS: PIOGLITAZONE HCL 15 MG TABLET PO SCH (09:27)
[2019-01-23] MEDS: LISINOPRIL 5 MG TABLET PO SCH (09:27)
[2019-01-23] MEDS: TAMSULOSIN HCL 0.4 MG CAP.SR.24H PO SCH (09:27)
[2019-01-23] MEDS: DILTIAZEM HCL 180 MG CAPSULE.CR PO SCH (09:27)
[2019-01-23] MEDS: DIGOXIN 0.25 MG TABLET PO SCH (09:27)
[2019-01-23] MEDS: APIXABAN 5 MG TABLET PO SCH (09:27)
== END 2019-01-23 09:40 | disposition home or self-care (01) | DRG 310 ==
LOC: ER 09:39 → EH 11:55 → 3N 14:25
PROVIDERS: ADMIT Internal Medicine Geriatric Medicine; ATTEND Internal Medicine Geriatric Medicine
DX: I48.2 Chronic atrial fibrillation (principal); E11.9 Type 2 diabetes mellitus without complications; I10 Essential (primary) hypertension; E78.5 Hyperlipidemia, unspecified; N40.1 Benign prostatic hyperplasia with lower urinary tract symptoms; M54.12 Radiculopathy, cervical region; M15.3 Secondary multiple arthritis; I48.92 Unspecified atrial flutter; E66.01 Morbid (severe) obesity due to excess calories; Z79.899 Other long term (current) drug therapy; Z79.84 Long term (current) use of oral hypoglycemic drugs; Z87.891 Personal history of nicotine dependence
CPT/HCPCS: 36415; 71045; 80053; 80061; 80162; 82550; 82553; 82962; 83036; 84439; 84443; 84481; 84484; 85025; 93005; 93010; 96374; 99285; J1160; J3490

== ENCOUNTER 2019-02-16 12:25 | Emergency (ER) | payer MEDICARE, MEDICAID ==
--- NOTE | 2019-02-16 12:48 | ER Document Report ---
ED Medical Screen (RME) - General Chief Complaint: Palpitations Stated Complaint: RAPID HEART RATE, WEAKNESS Time Seen by Provider: 02/16/19 12:38 Primary Care Provider: DOROTHY AKINS MD [Primary Care Provider] - Follow up as needed Notes: Patient is a 73-year-old male with atrial fibrillation that presents to the emergency department for chief complaint of palpitations. Patient reports that his heart rate was very high this morning, he took his usual dose of Cardizem this morning, but then took another dose around 12 PM because his heart rate was so high, it seems like it is getting better now, but he was concerned about this. Denies chest pain or shortness of breath ROS: Other than noted above, the 12 point review of systems was reviewed with the patient and were negative, all pertinent findings are included in the HPI. PHYSICAL EXAMINATION: Vital signs reviewed. GENERAL: Elderly male, no acute distress HEAD: Atraumatic, normocephalic. EYES: Pupils equal round extraocular movements intact, conjunctiva are normal. ENT: Nares patent NECK: Normal range of motion CV: Heart rate tachycardic, irregular rhythm LUNGS: No respiratory distress Musculoskeletal: Normal range of motion NEUROLOGICAL: Normal speech PSYCH: Normal mood, normal affect. MDM: Patient seen and examined for rapid initial assessment. Vital signs reviewed. A comprehensive ED assessment and evaluation of the patient, analysis of test results and completion of the medical decision making process will be conducted by additional ED providers. *Note is created using voice recognition software and may contain spelling, syntax or grammatical errors. TRAVEL OUTSIDE OF THE [place] IN LAST 30 DAYS: No - Related Data Allergies/Adverse Reactions: No Known Allergies Allergy (Verified 02/16/19 12:27) Past Medical History - Past Medical History Cardiac Medical History: Reports: Hx Atrial Fibrillation, Hx Hypercholesterolemia, Hx Hypertension Denies: Hx Coronary Artery Disease, Hx Heart Attack Pulmonary Medical History: Denies: Hx Asthma, Hx Bronchitis, Hx COPD, Hx Pneumonia Neurological Medical History: Denies: Hx Cerebrovascular Accident, Hx Seizures Endocrine Medical History: Reports: Hx Diabetes Mellitus Type 2 Renal/ Medical History: Denies: Hx Peritoneal Dialysis Musculoskeltal Medical History: Denies Hx Arthritis Past Surgical History: Reports: Hx Genitourinary Surgery - vasectomy - Immunizations Hx Diphtheria, Pertussis, Tetanus Vaccination: Yes Doctor's Discharge - Discharge Referrals: DOROTHY AKINS MD [Primary Care Provider] - Follow up as needed
[2019-02-16 13:30] LABS: ABSOLUTE BASOPHILS # (AUTO) 0.1 10^3/uL (0.0-0.2); ABSOLUTE EOSINOPHILS # (AUTO) 0.1 10^3/uL (0.0-0.6); ABSOLUTE LYMPHOCYTES (AUTO) 1.1 10^3/uL (0.5-4.7); ABSOLUTE MONOCYTES (AUTO) 0.8 10^3/uL (0.1-1.4); ABSOLUTE NEUT (AUTO) 7.9 10^3/uL (1.7-8.2); BASOPHILS % (AUTO) 0.6 % (0-2); EOSINOPHILS % (AUTO) 0.9 % (0-6); HEMATOCRIT 41.2 % (37.9-51.0); HEMOGLOBIN 14.3 g/dL (13.5-17.0); LYMPHOCYTES % (AUTO) 10.6 % (13-45); MEAN CORPUSCULAR HGB CONC 34.6 g/dL (32.0-36.0); MEAN CORPUSCULAR VOLUME 84 fl (80-97); MONOCYTES % (AUTO) 8.4 % (3-13); PLATELET COUNT 385 10^3/uL (150-450); RED BLOOD COUNT 4.92 10^6/uL (4.35-5.55); RED CELL DISTRIBUTION WIDTH 14.4 % (11.5-14.0); SEGMENTED NEUTROPHILS % (AUTO) 79.5 % (42-78); TOTAL CELLS COUNTED % (AUTO) 100 %
--- NOTE | 2019-02-16 13:42 | RADIOLOGY REPORT (SQ) ---
EXAM DESCRIPTION: CHEST SINGLE VIEW COMPLETED DATE/TIME: 02/16/2019 1:31 pm REASON FOR STUDY: palpitations COMPARISON: Chest films 01/19/2019, 11/08/2018 EXAM PARAMETERS: NUMBER OF VIEWS: One view. TECHNIQUE: Single frontal radiographic view of the chest acquired. RADIATION DOSE: NA LIMITATIONS: None. FINDINGS: LUNGS AND PLEURA: No opacities, masses or pneumothorax. No pleural effusion. MEDIASTINUM AND HILAR STRUCTURES: No masses. Contour normal. HEART AND VASCULAR STRUCTURES: Heart normal in size. Normal vasculature. BONES: No acute findings. HARDWARE: None in the chest. OTHER: No other significant finding. IMPRESSION: NO ACUTE RADIOGRAPHIC FINDING IN THE CHEST. TECHNICAL DOCUMENTATION: JOB ID: [id number] [employer]- All Rights Reserved Reading location - IP/workstation name: [email or web address]
--- NOTE | 2019-02-16 14:48 | EKG REPORT ---
SEVERITY:- ABNORMAL ECG - SINUS TACHYCARDIA PROBABLE LEFT ATRIAL ABNORMALITY MARKEDLY POSTERIOR QRS AXIS BORDERLINE R WAVE PROGRESSION, ANTERIOR LEADS : Confirmed by: Paula Barber MD 16-Feb-2019 14:47:05
--- NOTE | 2019-02-16 15:18 | ER Document Report ---
ED Cardiac - General Chief Complaint: Palpitations Stated Complaint: RAPID HEART RATE, WEAKNESS Time Seen by Provider: 02/16/19 12:38 Primary Care Provider: SKINNY DE LEON MD [ACTIVE STAFF] - Follow up in 1 week DOROTHY AKINS MD [Primary Care Provider] - Follow up in 3-5 days TRAVEL OUTSIDE OF THE [place] IN LAST 30 DAYS: No - HPI Notes: Patient is a 73-year-old male that presents to the emergency department for chief complaint of palpitations. Patient reports around 6 AM this morning he started to have palpitations. He describes it as a hard fast beating of his heart. He states that he has had this in the past and is on Cardizem. He did take his dose of Cardizem at 6 AM but the symptoms persisted and he took a second dose at noon, this was when he decided to come to the emergency room. He denies any associated lightheadedness, shortness of breath or pain. He believes he has atrial fibrillation and does report being on a blood thinner. Patient currently states he is asymptomatic Past Medical History: A. fib Past Surgical History: Cardiac ablation Social History: Denies tobacco and alcohol use Family History: Reviewed and noncontributory for presenting illness Allergies: Reviewed, see documented allergy list. REVIEW OF SYSTEMS: CONSTITUTIONAL : No fever No chills No diaphoresis No recent illness EENT: No vision changes No congestion No sore throat CARDIOVASCULAR: No chest pain palpitations RESPIRATORY: No shortness of breath No cough No difficulty breathing GASTROINTESTINAL: No abdominal pain No nausea No vomiting No diarrhea GENITOURINARY: No dysuria No hematuria No difficulty urinating MUSCULOSKELETAL: No back pain No leg pain No arm pain SKIN: No rashes No lesions LYMPHATIC: No swollen, enlarged glands. NEUROLOGICAL: No lightheadedness No headache No weakness No paresthesias PSYCHIATRIC: No anxiety No depression PHYSICAL EXAMINATION: Vital signs reviewed, nursing noted reviewed. GENERAL: Well-appearing, well-nourished and in no acute distress. HEAD: Atraumatic, normocephalic. EYES: Eyes appear normal, extraocular movements intact, sclera anicteric, conjunctiva are normal. ENT: nares patent, oropharynx clear without exudates. Moist mucous membranes. NECK: Normal range of motion, supple without lymphadenopathy LUNGS: Breath sounds clear to auscultation bilaterally and equal. No wheezes rales or rhonchi. HEART: Regular rate and rhythm without murmurs ABDOMEN: Soft, nontender, normoactive bowel sounds. No rebound, guarding, or rigidity. No masses appreciated. EXTREMITIES: Nontender, good range of motion, no pitting or edema. NEUROLOGICAL: No focal neurological deficits. Moves all extremities spontaneously Motor and sensory grossly intact on exam. PSYCH: Normal mood, normal affect. SKIN: Warm, Dry, normal turgor, no rashes or lesions noted on exposed skin - Related Data Allergies/Adverse Reactions: No Known Allergies Allergy (Verified 02/16/19 12:27) Past Medical History - Social History Smoking Status: Smoker,Current Status Unk Family History: Reviewed & Not Pertinent Patient has suicidal ideation: No Patient has homicidal ideation: No - Past Medical History Cardiac Medical History: Reports: Hx Atrial Fibrillation, Hx Hypercholesterolemia, Hx Hypertension Denies: Hx Coronary Artery Disease, Hx Heart Attack Pulmonary Medical History: Denies: Hx Asthma, Hx Bronchitis, Hx COPD, Hx Pneumonia Neurological Medical History: Denies: Hx Cerebrovascular Accident, Hx Seizures Endocrine Medical History: Reports: Hx Diabetes Mellitus Type 2 Renal/ Medical History: Denies: Hx Peritoneal Dialysis Musculoskeletal Medical History: Denies Hx Arthritis Past Surgical History: Reports: Hx Genitourinary Surgery - vasectomy - Immunizations Hx Diphtheria, Pertussis, Tetanus Vaccination: Yes Physical Exam - Vital signs Vitals: Temp Pulse Resp BP Pulse Ox 97.5 F 109 H 16 104/59 L 98 02/16/19 12:59 02/16/19 12:59 02/16/19 12:59 02/16/19 12:59 02/16/19 12:59 Course - Re-evaluation Re-evalutation: 02/16/19 15:17 Vitals reviewed. Nursing notes reviewed. Patient currently has a heart rate of 86 and is in a normal sinus rhythm. He does have a history of atrial fibrillation with RVR and is anticoagulated and on Cardizem. It is likely that his symptoms this morning were related to A. fib with RVR and he converted after taking an extra dose of his home Cardizem. Patient has remained hemodynamically stable and asymptomatic while in the emergency room. Chest x-ray is normal. EKG is unremarkable. His CBC is also unremarkable. CMP hemolyzed and I am c urrently awaiting a redrawn CMP and troponin. Laboratory 02/16/19 02/16/19 02/16/19 13:15 13:15 13:15 WBC 10.0 RBC 4.92 Hgb 14.3 Hct 41.2 MCV 84 MCH 29.0 MCHC 34.6 RDW 14.4 H Plt Count 385 Seg Neutrophils % 79.5 H Lymphocytes % 10.6 L Monocytes % 8.4 Eosinophils % 0.9 Basophils % 0.6 Absolute Neutrophils 7.9 Absolute Lymphocytes 1.1 Absolute Monocytes 0.8 Absolute Eosinophils 0.1 Absolute Basophils 0.1 Sodium Cancelled Potassium Cancelled Chloride Cancelled Carbon Dioxide Cancelled Anion Gap Cancelled BUN Cancelled Creatinine Cancelled Est GFR ( Amer) Cancelled Est GFR (Non-Af Amer) Cancelled Glucose Cancelled Calcium Cancelled Total Bilirubin Cancelled Direct Bilirubin Cancelled Neonat Total Bilirubin Cancelled Neonat Direct Bilirubin Cancelled Neonat Indirect Bili Cancelled AST Cancelled ALT Cancelled Alkaline Phosphatase Cancelled Troponin I Cancelled Total Protein Cancelled Albumin Cancelled Chest X-Ray 02/16/19 12:48 IMPRESSION: NO ACUTE RADIOGRAPHIC FINDING IN THE CHEST. 02/16/19 16:44 Patient's troponin is normal. He does have a mild hyponatremia and was instructed to eat some salty foods this evening. Patient sees Dr. Barber for cardiology but states he has had a difficult time contacting him recently and would like a referral to Dr. De Leon. Dr. De Leon's information was given at discharge. Patient will follow with his primary care providers for reevaluation of his palpitations and paroxysmal atrial fibrillation. He will return to the emergency room if his palpitations were to return and persist. He is stable at discharge. - Vital Signs Vital signs: Temp Pulse Resp BP Pulse Ox 97.5 F 109 H 16 104/59 L 98 02/16/19 12:59 02/16/19 12:59 02/16/19 12:59 02/16/19 12:59 02/16/19 12:59 - Laboratory Result Diagrams: 02/16/19 13:15 02/16/19 15:22 Laboratory results interpreted by me: 02/16/19 02/16/19 13:15 15:22 RDW 14.4 H Seg Neutrophils % 79.5 H Lymphocytes % 10.6 L Sodium 130.9 L Carbon Dioxide 21 L - EKG Interpretation by Me Additional EKG results interpreted by me: 02/16/19 15:15 Interpreted by myself 1233: Normal sinus tachycardia, rate 101, normal axis, no ectopy, no ST elevation Discharge - Discharge Clinical Impression: Palpitations Condition: Stable Disposition: HOME, SELF-CARE Instructions: Palpitations (Irregular or Rapid Heartrate) ([facility]) Additional Instructions: Please return to the emergency department if you have any worsening, or concern of your symptoms. Please return to the emergency department if you develop chest pain, difficulty breathing, severe abdominal pain, or ongoing vomiting. Please follow-up with your primary care physician in 2-3 days and any other castillo mmended physicians. If prescribed, take all medications as directed. If you have any questions or concerns do not hesitate to return the emergency department for evaluation. [] Referrals: SKINNY DE LEON MD [ACTIVE STAFF] - Follow up in 1 week DOROTHY AKINS MD [Primary Care Provider] - Follow up in 3-5 days
[2019-02-16 16:18] LABS: ALANINE AMINOTRANSFERASE 25 U/L (21-72); ALBUMIN 3.8 g/dL (3.5-5.0); ALKALINE PHOSPHATASE 79 U/L (38-126); ANION GAP 12 (5-19); ASPARTATE AMINO TRANSFERASE 17 U/L (17-59); BILIRUBIN,DIRECT 0.3 mg/dL (0.0-0.4); BILIRUBIN,TOTAL 0.4 mg/dL (0.2-1.3); BLOOD UREA NITROGEN 15 mg/dL (7-20); CALCIUM 9.4 mg/dL (8.4-10.2); CARBON DIOXIDE 21 mmol/L (22-30); CHLORIDE 98 mmol/L (98-107); GLUCOSE 104 mg/dL (75-110); POTASSIUM 4.4 mmol/L (3.6-5.0); SODIUM 130.9 mmol/L (137-145); TOTAL PROTEIN 6.7 g/dL (6.3-8.2)
[2019-02-16 17:46] VITALS: BP 134/66
== END 2019-02-16 17:46 | disposition home or self-care (01) ==
LOC: ER 12:25
DX: R00.2 Palpitations (principal); R53.1 Weakness; Z79.899 Other long term (current) drug therapy; F17.200 Nicotine dependence, unspecified, uncomplicated; I10 Essential (primary) hypertension; E11.9 Type 2 diabetes mellitus without complications
CPT/HCPCS: 36415; 71045; 80053; 84484; 85025; 93005; 93010; 99285

== ENCOUNTER → 2019-09-26 | Outpatient (CLI) | payer MEDICAID, MEDICARE ==
--- NOTE | 2019-09-26 17:34 | RADIOLOGY REPORT (SQ) ---
EXAM DESCRIPTION: CAROTID DOPPLER COMPLETED DATE/TIME: 09/26/2019 2:48 pm REASON FOR STUDY: PVD I73.9 PERIPHERAL VASCULAR DISEASE, UNSPECIFIED COMPARISON: None. TECHNIQUE: Grayscale ultrasound, Doppler velocity and spectra, and color Doppler images acquired of the extra-cranial carotid and vertebral arteries. Images stored on PACS. LIMITATIONS: None. FINDINGS: RIGHT CAROTID CCA Velocities: Within normal limits. ICA Velocities Peak systolic 105 cm/s. End diastolic 32 cm/s. Proximal ICA/CCA peak systolic ratio 1.3. Spectra normal. No significant plaque. LEFT CAROTID CCA Velocities: Within normal limits. ICA Velocities Peak systolic 116 cm/s. End diastolic 34 cm/s. Proximal ICA/CCA peak systolic ratio 1.79. Small amount of plaque in the carotid bulb. VERTEBRAL ARTERIES: Antegrade flow. Normal waveforms. SUBCLAVIAN ARTERIES: No finding. OTHER: No other significant finding. IMPRESSION: NO HEMODYNAMICALLY SIGNIFICANT STENOSIS. COMMENT: Quality ID #[id number]: Velocity criteria are extrapolated from the diameter data as defined by t he Society of Radiologists in Ultrasound Consensus Conference. Radiology 2003: 229; 340-346. TECHNICAL DOCUMENTATION: JOB ID: [id number] [employer]- All Rights Reserved Reading location - IP/workstation name: [email or web address]
--- NOTE | 2019-09-27 07:01 | XCELERA REPORT ---
[address] [address] Lower Extremity Arterial Evaluation Name: ROSCOE HOWELL Age: 73 yrs Gender: Male : 1945 Patient Status: Outpatient Patient Location: Study Date: 09/26/2019 01:15 PM Procedure: A color flow and duplex scan of the lower extremity arteries was performed bilaterally with velocity and waveform anaylsis. Reason For Study: PVD Ordering Physician: DOROTHY AKINS Performed By: Ian Shipley Measurements and Calculations Right Left AERONAUTICAL ENGINEERING TECHNOLOGIST PSV 144.1 128.1 cm/sec Prox PFA PSV -161.1 -76.4 cm/sec Prox SFA PSV 120.1 110.3 cm/sec Mid SFA PSV -125.7 -122.2cm/sec Dist SFA PSV -81.2 -75.1 cm/sec Prox Pop A PSV 76.0 76.4 cm/sec Dist AASHISH PSV -66.8 98.7 cm/sec Dist EQUIPMENT OPERATOR/LABORER PSV 125.0 116.3 cm/sec Jeramie Pedis PSV 23.4 -60.9 cm/sec Right Side Arterial Evaluation Normal velocity and triphasic waveforms noted from the Common Femoral artery to the infrageniculate vessels . Biphasic with low velocity, minimal spectral broadening, in the Dorsalis Pedis artery. Ankle Brachial index not ordered. Left Side Arterial Evaluation Normal velocity and triphasic waveforms noted from the Common Femoral artery to the infrageniculate vessels . Biphasic with low velocity, minimal spectral broadening, retrograde flow, in the Dorsalis Pedis artery. Ankle Brachial index not ordered. Interpretation Summary Mild hemodynamically significant lesions in the bilateral lower extremities, on duplex imaging, at rest. Duplex findings are near normal, significant disease, no focal stenosis in the Dorsalis Pedis arteries, bilaterally. : DOROTHY AKINS > Yakov Infante
== END ==
LOC: SP 13:56
PROVIDERS: ATTEND Internal Medicine Geriatric Medicine
DX: I73.9 Peripheral vascular disease, unspecified (principal)
CPT/HCPCS: 93880; 93925

== ENCOUNTER 2020-01-04 10:55 | Day surgery (SDC) | payer MEDICARE, MEDICAID ==
[~2020-01-04 10:55] MED LIST: 1/2 NORMAL SALINE 1,000 ML IV PRN; LIDOCAINE 0.5% INJ-PF (5 MG/ML) 50 ML SDV SUBCUT PRN
[2020-01-04] MEDS ORDERED: PROPOFOL INJ 200 MG/20 ML VIAL IV ONE (10:58)
--- NOTE | 2020-01-04 13:31 | EKG REPORT ---
SEVERITY:- ABNORMAL ECG - SINUS RHYTHM LEFT ANTERIOR FASCICULAR BLOCK LOW VOLTAGE IN FRONTAL LEADS : Confirmed by: Reymundo Mercedes MD 04-Jan-2020 13:30:39
--- NOTE | 2020-01-04 15:14 | Operative Report ---
Operative Report DATE OF SURGERY: 01/04/20 Operative Report: The risk, benefits and alternatives of the procedure including the risk of bleeding, perforation requiring surgery have been explained to the patient in detail informed consent was obtained. Timeout was called. Propofol medication is administered. Rectal examination is done which did not reveal any masses, tears or fissures. Colonoscopy performed to the cecum. Prep was good. All segments visualized. Retroflexion maneuvers performed. PREOPERATIVE DIAGNOSIS: Colorectal cancer screening POSTOPERATIVE DIAGNOSIS: 2 polyps one on the right-hand side of the colon removed via biopsy forceps. The other in the sigmoid removed via snare polypectomy and retrieved. Internal hemorrhoids OPERATION: Colonoscopy with snare polypectomy. Colonoscopy with biopsy SURGEON: MEETA MARCELO ANESTHESIA: LMAC TISSUE REMOVED OR ALTERED: As noted above. COMPLICATIONS: None. ESTIMATED BLOOD LOSS: None. INTRAOPERATIVE FINDINGS: As noted above. PROCEDURE: Patient tolerated the procedure well. No immediate postprocedure complications are noted. Patient is discharged in good condition. Discharge date 01/04/2020. Discharge diet: Regular. Discharge activity: Regular. 2 to 3-week follow-up to discuss findings. Patient is instructed to call the office or proceed to the emergency room should there be any further problems or questions. Wait on the pathology. 3 to 5-year surveillance colonoscopy.
[2020-01-04 16:08] VITALS: BP 128/73
== END 2020-01-04 14:56 | disposition home or self-care (01) ==
LOC: OROUT 10:55
PROVIDERS: ATTEND Internal Medicine Gastroenterology
DX: Z12.11 Encounter for screening for malignant neoplasm of colon (principal); D12.5 Benign neoplasm of sigmoid colon; K64.8 Other hemorrhoids; Z86.010 Personal history of colon polyps; E11.9 Type 2 diabetes mellitus without complications; I10 Essential (primary) hypertension; Z79.899 Other long term (current) drug therapy; Z79.84 Long term (current) use of oral hypoglycemic drugs; Z88.8 Allergy status to other drugs, medicaments and biological substances
CPT/HCPCS: 45380; 45385; 82962; 88305 ×2; 93005; 93010; 00811; J2704; 811